=== PATIENT | female | born 1965 | race Caucasian/White ===

== ENCOUNTER 2020-01-29 10:55 | Outpatient (REF) | payer OTHER, SELFPAY ==
[2020-01-29 12:16] LABS: MANUAL DIFF FLAG NO
[2020-01-29 12:20] LABS: Basophils Absolute Auto 0.1 X10*3/uL (0.0-0.2); Basophils Percent Auto 0.6 % (0-2); Eosinophils Absolute Auto 0.2 X10*3/uL (0.0-0.4); Eosinophils Percent Auto 2.2 % (0-4); Hematocrit 37.4 % (37-47); Hemoglobin 12.4 g/dl (12.0-16.0); Imm Gran Abs Auto 0.03 X10*3/uL (0.00-0.03); Imm Gran Pct Auto 0.3 % (0.0-0.4); Mean Corpuscular HGB Conc 33.2 g/dl (31.0-35.0); Mean Corpuscular Volume 96.4 fL (80-98); Monocytes Absolute Auto 0.7 X10*3/uL (0.1-1.2); Monocytes Percent Auto 6.6 % (2-11); Neutrophils Absolute Auto 5.5 X10*3/uL (2.0-8.3); Neutrophils Percent Auto 52.3 % (45-73); Platelet Count 404 X10*3/uL (160-400); Red Blood Count 3.88 X10*6/uL (4.20-5.50); Red Cell Distribution Width 11.9 % (11.0-16.0); White Blood Count 10.6 X10*3/uL (4.8-10.8)
[2020-01-29 12:26] LABS: Glucose Urine UA NEG (NEG); Leukocyte Esterase Urine NEG (NEG); Nitrite Urine NEG (NEG); Specific Gravity - Urine 1.025 (1.005-1.025); Urine Blood NEG (NEG); Urine Ketones NEG (NEG); Urine Protein NEG (NEG-TRACE)
[2020-01-29 12:28] LABS: Appearance Urine CLEAR; Color Urine YELLOW
[2020-01-29 12:34] LABS: Mucus Urine 2+ /LPF; Squamous Epithelial Cell Urine 2+ /LPF
[2020-01-29 12:43] LABS: Creatinine Urine 101.99 mg/dL; Microalbum/Creatinine Ratio Ur 8.8 ug/mg cr
[2020-01-29 12:55] LABS: Alanine Aminotransferase 10 U/L (0-31); Albumin Level 4.1 g/dL (3.5-5.0); Alkaline Phosphatase 88 U/L (39-117); Anion Gap 14 (12-20); Aspartate Amino Transferase 13 U/L (5-31); Bilirubin Total 0.3 mg/dL (0.0-1.0); Blood Urea Nitrogen 12 mg/dL (9-16); Calcium 9.1 mg/dL (8.4-10.2); Carbon Dioxide 25 mmol/L (22-29); Chloride 103 mmol/L (96-108); Cholesterol 141 mg/dL; Estimated Glomerular Filt Rate > 60; Glucose Fasting 103 mg/dL (60-99); HDL Cholesterol 57 mg/dL; LDL Cholesterol Calculated 51 mg/dl; Potassium 4.3 mmol/l (3.3-5.1); Sodium 138 mmol/L (135-145); Total Protein 6.9 g/dL (6.5-8.0); Triglycerides 166 mg/dL
[2020-01-29 12:56] LABS: Estimated Average Glucose 143 mg/dL; Hemoglobin A1c % 6.6 %
[2020-01-29 13:14] LABS: TSH reflex Free T4 0.84 mIU/mL (0.32-4.0)
== END 2020-01-29 10:56 | disposition home or self-care (01) ==
LOC: HO.LAB 10:55
PROVIDERS: PCP Internal Medicine; Visit Provider Internal Medicine
DX: E11.9 Type 2 diabetes mellitus without complications (principal); I10 Essential (primary) hypertension; E78.00 Pure hypercholesterolemia, unspecified
CPT/HCPCS: 36415; 80053; 80061; 81001; 82043; 83036; 84443; 85025

== ENCOUNTER 2020-12-28 09:32 | Emergency (ER) | payer OTHER, SELFPAY ==
--- NOTE | ~2020-12-28 | XR_ITS ---
EXAMINATION: XR THORACIC SPINE CLINICAL INFORMATION: Pain post fall COMPARISON: Previous chest x-ray November 2018 TECHNIQUE: 3 views of the thoracic spine were obtained. FINDINGS: Bone alignment is normal. No fracture or dislocation is seen. There is multilevel degenerative disc disease and degenerative spondylosis. Paraspinal soft tissues are unremarkable. XR/XR thoracic spine 3V IMPRESSION: No fracture seen. Multilevel disc degenerative changes.
--- NOTE | ~2020-12-28 | XR_ITS ---
EXAMINATION: XR LUMBOSACRAL SPINE CLINICAL INFORMATION: Fall COMPARISON: None TECHNIQUE: Three views of the lumbosacral spine. FINDINGS: Bone alignment is normal. No fracture or dislocation is seen. There is degenerative disc disease at L5-S1. There is lower lumbar spine facet arthritis. There is a limbus variant of the superior endplate of the L3 vertebral body. XR/XR lumbar spine 2-3V IMPRESSION: No fracture seen. Degenerative disc disease at L5-S1 and lower lumbar spine facet arthritis.
--- NOTE | ~2020-12-28 | XR_ITS ---
EXAMINATION: BILATERAL KNEE X-RAY CLINICAL INFORMATION: Fall COMPARISON: None TECHNIQUE: 4 views of each knee FINDINGS: Left: Bone alignment is normal. No fracture or dislocation is seen. Joint spaces are normal. There is no joint effusion. Right: Bone alignment is normal. No fracture or dislocation is seen. Joint spaces are normal. There is no joint effusion. There is evidence of atherosclerotic disease. XR/XR knee RT 4V IMPRESSION: Atherosclerotic disease on the right otherwise unremarkable exam.
--- NOTE | ~2020-12-28 | XR_ITS ---
EXAMINATION: BILATERAL KNEE X-RAY CLINICAL INFORMATION: Fall COMPARISON: None TECHNIQUE: 4 views of each knee FINDINGS: Left: Bone alignment is normal. No fracture or dislocation is seen. Joint spaces are normal. There is no joint effusion. Right: Bone alignment is normal. No fracture or dislocation is seen. Joint spaces are normal. There is no joint effusion. There is evidence of atherosclerotic disease. XR/XR knee LT 4V IMPRESSION: Atherosclerotic disease on the right otherwise unremarkable exam.
[2020-12-28 09:34] VITALS: BP 133/69; PULSE 89; RESP 16; TEMP 36.4; O2SAT 97
[2020-12-28 09:45] VITALS: BP 133/69; PULSE 89; RESP 17; TEMP 36.4; O2SAT 97; BMI 32.9
--- NOTE | 2020-12-28 10:46 | ED.FALL ---
HPI - Fall General Chief Complaint: Fall Stated Complaint: fell inj knee and shins Time Seen by Provider: 12/28/20 09:45 Source: patient Mode of arrival: ambulatory Limitations: no limitations History of Present Illness HPI Narrative: 55-year-old female presenting to the ED with complaints of upper and lower back pain along with bilateral knee pain and left leg pain right below the knee since yesterday after she had a mechanical fall where she slipped on some type of yellow spilled liquid while she was grocery shopping at [employer] in the [facility]. She reports that she believes her left leg went under the grocery cart and her right leg went behind her almost like a split and then she fell on her left side she believes although she does not believe she hit her head she is unsure but did not lose consciousness. She is not on any blood thinners. She denies any symptoms prior to the fall. She denies any other symptoms other than pain after the fall. She denies any headaches, neck pain/stiffness, paresthesias, chest pain or shortness of breath, abdominal pain or injury, upper extremity injury or any other symptoms complaints or concerns at this time MD complaint: fall Onset (ago): day(s) (Yesterday) Fall from: standing Fall witnessed: yes, by bystander Place fall occurred: other ([employer] store near the [facility]) Loss of consciousness: none Prolonged down time: no Symptoms prior to fall: none Context: tripped/slipped (On some type of a yellow spilled liquid on the floor) Location of injury: back Location of injury - extremities: right: knee Severity: moderate Quality: aching Associated symptoms (after fall): denies Related Data Home Medications Medication Instructions Recorded Confirmed mometasone 0.1 % topical cream 1 appl TOPICAL DAILY 10/23/20 Previous Rx's Medication Instructions Recorded amlodipine 5 mg tablet 5 mg PO DAILY #90 tab 08/29/20 atorvastatin 40 mg tablet 40 mg PO DAILY #90 tab 08/29/20 metformin 1,000 mg tablet 1,000 mg PO BID #180 tab 10/28/20 aspirin 81 mg tablet,delayed 81 mg PO DAILY #90 tab 12/24/20 release lisinopril 20 mg tablet 20 mg PO DAILY #30 tab 12/24/20 acetaminophen 500 mg tablet 1,000 mg PO QID PRN #14 tab 12/28/20 (Tylenol Extra Strength) cyclobenzaprine 10 mg tablet 10 mg PO Q8H PRN #14 tab 12/28/20 lidocaine 5 % topical patch 1 patch TOPICAL DAILY #15 ea 12/28/20 (Lidoderm) Allergies Allergy/AdvReac Type Severity Reaction Status Date / Time No Known Allergies Allergy Verified 01/31/20 10:59 Review of Systems Review of Systems: Constitutional : No Weight loss, No Fever, No Chills, No Night Sweats, No Fatigue, No Malaise ENT/Mouth : No Hearing loss, No Ear Pain, No Nasal Congestion, No Sinus Pain, No Hoarseness, No sore throat, No Rhinorrhea, No Swallowing Difficulty Eyes: No Eye Pain, No Swelling, No Redness, No Foreign Body, No Discharge, No Vision Changes Cardiovascular : No Chest Pain, No SOB, No Dyspnea on Exertion, No Orthopnea, No Edema, No Palpitations Respiratory : No Cough, No Sputum, No Wheezing, No Smoke Exposure, No Dyspnea Gastrointestinal : No Nausea, No Vomiting, No Diarrhea, No Constipation, No abdominal Pain, No Hematochezia, No Melena Genitourinary : no irregular bleeding, No Dysuria, No Urinary Frequency, No Hematuria, No Urinary Incontinence, No Urgency, No Flank Pain, No Urinary Flow Changes, No Hesitancy Musculoskeletal : + upper and lower back pain/injury, positive bilateral knee joint pain, No Myalgias, No Joint Swelling Skin : No Skin Lesions, No rash Neuro : No Weakness, No Numbness, No Paresthesias, No Loss of Consciousness, No Dizziness, No Headache Psych : No Anxiety/Panic, No Depression, No SI/HI/AH/VH, No Social Issues, Heme/Lymph: No Bruising, No Bleeding,No Lymphadenopathy Endocrine : No Polyuria, No Polydipsia, No Temperature Intolerance Yes all other systems are reviewed and are negative [facility] Past Medical History Attestation statement: The following information was validated with the patient. Surgical History No pertinent past surgical history Family History Family History Father Hypertension Mother Hypertension Asthma Brother No problems noted. Sister No problems noted. Son No problems noted. Social History Social History Advance Directives: No Advance Directives Information Provided: No Patient : No Physical Exam Vital Signs: Vital Signs: Last Vital Signs Temp 97.5 F 12/28/20 09:45 Pulse 89 12/28/20 09:45 Resp 17 12/28/20 09:45 BP 133/69 12/28/20 09:45 Pulse Ox 97 12/28/20 09:45 Body Mass Index 32.9 vital signs have been reviewed as normal and appeared to be correct. Blood pressure normal. Heart rate normal. Respiration rate normal. Temperature normal. Oxygen saturation normal. Appearance: Alert. Oriented X3. No acute distress. Head: Normal external exam. Normocephalic. Atraumatic. No Zambrano signs noted. No raccoon eyes noted Eyes: PERRLA. EOMI. Conjunctiva and sclera normal. Eyelids normal. ENT: EAC normal. TM's Normal. Pharynx normal. Uvula midline. Moist mucous membranes. No trismus noted. No drooling noted. No muffled voice noted. Neck: Normal inspection. Neck supple. FROM. No adenopathy. Thyroid Normal. No meningeal signs. No neck mass noted. Nontender. No signs of trauma. CVS: Normal heart rate and rhythm. Heart sound normal. No murmurs noted. Pulses normal throughout. Respiratory: No respiratory distress. Painless inspiration. Breath sounds normal. No wheezes/rales/rhonchi noted. Chest nontender. No accessory muscle usage noted or decreased air movement noted. Abdomen: Soft and nontender. Bowel sounds normal in all 4 quadrants. No distention noted. No organomegaly noted. No visible injury noted. Back: Full range of motion noted. No obvious deformities, or edema. Mild para-spinal muscular tenderness from thoracic to lumbar region to coccyx. Full ROM in back and lower extremities. 5/5 strength hip extension/flexion, abduction, adduction. Mild Lumbar pain with hip flexion against resistance. Straight leg raise test negative on right; Straight leg raise test negative on left; Reflexes normal ankle and knee bilaterally; EHL motor strength normal bilaterally. No rashes/lesion/induration/fluctuance or signs infection noted. No ecchymosis/abrasion/lacerations or obvious signs of trauma on the entire back. Skin: Skin warm and dry. Normal skin color. Normal skin turgor. No rashes/lesions/lacerations noted. Extremities: Patient with tenderness up patient to bilateral knees with ecchymosis noted to the right knee and mild ecchymosis noted to the left upper mak patient has full range of motion of bilateral knees no obvious ligamentous or tendon injury or deformities noted. Otherwise all other Extremities exhibit normal range of motion and nontender. Neuro: Oriented X 3. No motor deficit. No sensory deficit. Reflexes normal. Patient has a normal steady gait. Course Course Course Narrative: 55-year-old female presenting to the ED with complaints of upper and lower back pain along with bilateral knee pain and left leg pain right below the knee since yesterday after she had a mechanical fall where she slipped on some type of yellow spilled liquid while she was grocery shopping at [employer] in the [place]. She reports that she believes her left leg went under the grocery cart and her right leg went behind her almost like a split and then she fell on her left side she believes although she does not believe she hit her head she is unsure but did not lose consciousness. She is not on any blood thinners. X-rays of bilateral knees/lumbar spine/thoracic spine obtained and negative for any acute processes only revealed chronic changes therefore at this time will DC home with symptomatic treatment instructions to follow-up with her primary care provider and her front end architect as she discussed with me and to return if any new or worsening symptoms. Patient understands agrees with this plan. MDM - Fall Medical Records Attestation: I reviewed the patient's medical records. Imaging Data X-ray of lumbar/thoracic/bilaterally knees: Attestation: I personally reviewed and interpreted this imaging study as follows: Radiologist's impression: FINDINGS: Bone alignment is normal. No fracture or dislocation is seen. There is multilevel degenerative disc disease and degenerative spondylosis. Paraspinal soft tissues are unremarkable. XR/XR thoracic spine 3V IMPRESSION: No fracture seen. Multilevel disc degenerative changes. ? FINDINGS: Bone alignment is normal. No fracture or dislocation is seen. There is degenerative disc disease at L5-S1. There is lower lumbar spine facet arthritis. There is a limbus variant of the superior endplate of the L3 vertebral body. XR/XR lumbar spine 2-3V IMPRESSION: No fracture seen. Degenerative disc disease at L5-S1 and lower lumbar spine facet arthritis. FINDINGS: Left: Bone alignment is normal. No fracture or dislocation is seen. Joint spaces are normal. There is no joint effusion. Right: Bone alignment is normal. No fracture or dislocation is seen. Joint spaces are normal. There is no joint effusion. There is evidence of atherosclerotic disease. XR/XR knee LT 4V IMPRESSION: Atherosclerotic disease on the right otherwise unremarkable exam. Discharge Plan Discharge Clinical Impression: Fall, Knee sprain, bilateral, Strain of thoracic region, Lumbar strain Patient Disposition: Home, Self-Care Instructions: Knee Sprain (ED), Muscle Strain (ED), Low Back Strain (ED), Fall Prevention (ED) Prescriptions: New cyclobenzaprine 10 mg tablet 10 mg PO Q8H PRN (Reason: Muscle spasm) Qty: 14 RF: 0 acetaminophen [Tylenol Extra Strength] 500 mg tablet 1,000 mg PO QID PRN (Reason: fever or pain) Qty: 14 RF: 0 lidocaine [Lidoderm] 5 % adhesive patch,medicated 1 patch topical DAILY Qty: 15 RF: 0 No Action amlodipine 5 mg tablet 5 mg PO DAILY Qty: 90 RF: 1 atorvastatin 40 mg tablet 40 mg PO DAILY Qty: 90 RF: 1 mometasone 0.1 % cream 1 appl topical DAILY RF: 0 metformin 1,000 mg tablet 1,000 mg PO BID Qty: 180 RF: 1 lisinopril 20 mg tablet 20 mg PO DAILY Qty: 30 RF: 0 aspirin 81 mg tablet,delayed release (DR/EC) 81 mg PO DAILY Qty: 90 RF: 3 Referrals: Todd Candelaria MD [Primary Care Provider] - 2 days Stand Alone Forms: Work/School Release Print Language: Azeri
== END 2020-12-28 11:09 | disposition home or self-care (01) ==
PROVIDERS: Emergency Provider Emergency Medicine; PCP Internal Medicine
DX: S39.012A Strain of muscle, fascia and tendon of lower back, initial encounter (principal); S29.012A Strain of muscle and tendon of back wall of thorax, initial encounter; S83.92XA Sprain of unspecified site of left knee, initial encounter; M25.561 Pain in right knee; W01.0XXA Fall on same level from slipping, tripping and stumbling without subsequent striking against object, initial encounter; Y93.9 Activity, unspecified; Y92.512 Supermarket, store or market as the place of occurrence of the external cause; Y99.9 Unspecified external cause status
CPT/HCPCS: 72072; 72100; 73564; 99283

== ENCOUNTER 2021-01-21 08:30 | Outpatient (REF) | payer OTHER, SELFPAY ==
--- NOTE | ~2021-01-21 | MM_ITS ---
EXAMINATION: BONE DENSITOMETRY CLINICAL INDICATION: Encounter for screening for osteoporosis. COMPARISON: This is the patient's baseline examination. TECHNIQUE: Using a [employer] DXA System (software version: 13.1) manufactured by [employer], dual-energy x-ray absorptiometry was performed of the lumbar spine and left hip. The images are of good technical quality. Summary results are attached. FINDINGS: AP SPINE L1-L4: BMD 1.322 g/cm2, Z-score 1.4, T-score 1.2, normal. LEFT FEMUR, NECK: BMD 0.843 g/cm2, Z-score -0.8, T-score -1.4, osteopenia. LEFT FEMUR, TOTAL: BMD 1.038 g/cm2, Z-score 0.5, T-score 0.2, normal. IDENTIFIED RISK FACTORS: Menopause. HISTORY OF FRACTURE: None listed. MEDICATIONS: None listed. MM/XR DEXA axial skeleton IMPRESSION: 1. DIAGNOSIS: Osteopenia based on the lowest T-score value of -1.4 in the femoral neck applying World Health Organization criteria. 2. 10-YEAR FRACTURE RISK PREDICTION, FRAX: Major osteoporotic fracture (clinical spine, forearm, hip or shoulder) 3.1%. Hip fracture 0.2%. 3. Treatment Recommendations: NOF guidelines recommend consideration for treatment in postmenopausal women and men age 50 and older presenting with the following: -A hip or vertebral (clinical or morphometric) fracture. -T-score less than or equal to -2.5 at the femoral neck or spine after appropriate evaluation to exclude secondary causes. -Low bone mass at the hip or spine and a 10-year fracture probability by FRAX of greater than or equal to 3% for hip fracture or greater than or equal to 20% for major osteoporotic fracture based on the [place] adapted WHO algorithm. 4. Other Recommendations: All treatment decisions require clinical judgment and consideration of individual patient factors, including patient preferences, comorbidities, previous drug use, risk factors not captured in the FRAX model (e.g. frailty, falls, vitamin D deficiency, increased bone turnover, interval significant decline in bone density) and possible under or overestimation of fracture risk by FRAX. Additional medical evaluation for secondary cause of low bone mineral density may be appropriate. FUTURE SCAN RECOMMENDATION: People with diagnosed cases of osteoporosis or at high risk for fracture should have regular bone mineral density tests. For patients eligible for Medicare, routine testing is allowed once every 2 years. The testing frequency can be increased to one year for patients who have rapidly progressing disease, those who are receiving or discontinuing medical therapy to restore bone mass, or have additional risk factors.
[2021-01-21 08:44] LABS: MANUAL DIFF FLAG NO
[2021-01-21 09:14] LABS: Basophils Absolute Auto 0.1 X10*3/uL (0.0-0.2); Basophils Percent Auto 0.6 % (0-2); Eosinophils Absolute Auto 0.1 X10*3/uL (0.0-0.4); Eosinophils Percent Auto 1.5 % (0-4); Hematocrit 41.8 % (37.0-47.0); Hemoglobin 14.3 g/dl (12.0-16.0); Imm Gran Abs Auto 0.04 X10*3/uL (0.00-0.03); Imm Gran Pct Auto 0.4 % (0.0-0.4); Lymphocytes Absolute Auto 2.7 X10*3/uL (1.2-4.9); Lymphocytes Percent Auto 27.8 % (20-40); Mean Corpuscular HGB Conc 34.2 g/dl (31.0-35.0); Mean Corpuscular Hemoglobin 32.1 pg (27.0-33.0); Mean Corpuscular Volume 93.9 fL (80.0-98.0); Mean Platelet Volume 9.1 fL (9.4-12.3); Monocytes Absolute Auto 0.7 X10*3/uL (0.1-1.2); Monocytes Percent Auto 7.6 % (2-11); Neutrophils Percent Auto 62.1 % (45-73); Platelet Count 338 X10*3/uL (160-400); Red Blood Count 4.45 X10*6/uL (4.20-5.50); Red Cell Distribution Width 11.6 % (11.0-16.0); White Blood Count 9.6 X10*3/uL (4.8-10.8)
[2021-01-21 09:30] LABS: Estimated Average Glucose 240 mg/dL
[2021-01-21 09:36] LABS: Alanine Aminotransferase 18 U/L (0-31); Albumin Level 4.1 g/dL (3.5-5.0); Alkaline Phosphatase 117 U/L (39-117); Anion Gap 15 (12-20); Aspartate Amino Transferase 15 U/L (5-31); Bilirubin Total 0.3 mg/dL (0.0-1.0); Blood Urea Nitrogen 14 mg/dL (9-16); Calcium 9.7 mg/dL (8.4-10.2); Carbon Dioxide 25 mmol/L (22-29); Chloride 102 mmol/L (96-108); Cholesterol 240 mg/dL; Estimated Glomerular Filt Rate > 60; Glucose Fasting 273 mg/dL (60-99); HDL Cholesterol 54 mg/dL; LDL Cholesterol Calculated 136 mg/dl; Potassium 4.6 mmol/L (3.3-5.1); Sodium 137 mmol/L (135-145); Total Protein 7.2 g/dL (6.5-8.0); Triglycerides 250 mg/dL
== END 2021-01-21 08:31 | disposition home or self-care (01) ==
LOC: HO.MAMMO 08:30
PROVIDERS: PCP Internal Medicine; Visit Provider Nurse Practitioner Acute Care
DX: Z13.820 Encounter for screening for osteoporosis (principal); M85.80 Other specified disorders of bone density and structure, unspecified site; E78.00 Pure hypercholesterolemia, unspecified; E11.9 Type 2 diabetes mellitus without complications; Z78.0 Asymptomatic menopausal state
CPT/HCPCS: 36415; 77080; 80053; 80061; 83036; 85025

== ENCOUNTER 2021-01-26 13:56 | Outpatient (AMB) | payer OTHER, SELFPAY ==
--- NOTE | 2021-01-26 14:08 | MHC.PC.OV ---
Vital Signs 01/26/21 14:09 Height 5 ft 2 in Weight 181 lb BMI 33.0 BP 130/82 Pulse 77 Pulse Source Pulse Oximeter Temp 96.9 F Pulse Oximetry (%) 98 Oxygen Delivery Method Room Air Intake Visit Reasons: physical, DM needs A1c today Reel Stripper Required: No Accompanied by: Self / Same As Patient Allergies No Known Allergies Allergy (Verified 01/19/23 15:50) Medication List - Last Reconciled 01/26/21 by Todd Candelaria MD acetaminophen (Tylenol Extra Strength) 1,000 mg (2 x 500 mg) PO QID PRN amlodipine 5 mg PO DAILY aspirin 81 mg PO DAILY atorvastatin 40 mg PO DAILY cyclobenzaprine 10 mg PO Q8H PRN lidocaine 5% (Lidoderm) 1 patch topical DAILY lisinopril 20 mg PO DAILY metformin 1,000 mg PO BID Tobacco use date assessed: 01/26/21 HPI physical, DM needs A1c today HPI Details Patient comes in today for her annual physical examination States that she feels okay She denies any headaches or dizziness Denies any chest pains, no SOB No nausea/vomiting, no abdominal pain No change in bowel habits noted Denies any acute urinary symptoms Had her follow up labs done a few days ago - to discuss her results [facility] Medical History (Updated 01/24/23 @ 05:13 by Todd Candelaria MD) Overweight (BMI 25.0-29.9) Asthma Bunion, right foot Fracture of phalanx of toe of left foot Muscle spasm of back Lumbar radiculitis Myalgia Arthralgia Left elbow pain Headache Neck pain Low back pain Right knee pain Screening for osteoporosis Vitamin D deficiency Cervical spondylosis 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 Sister No problems noted. Son No problems noted. Social History Housing: Apartment Alcohol intake: current Alcohol intake frequency: holidays/special occasions only Patient Tobacco Use Status: Never used Tobacco Tobacco use type: Cigarette e-Cigarette/Vaping Use: Never Used Second Hand Smoke Exposure: No Substance Use Type: Marijuana service: No Current occupational status: employed Cognitive needs: No Hearing needs: No Vision needs: No Questionnaire PHQ-9 Over the last 2 weeks, how often have you been bothered by any of the following problems? 1. Little interest or pleasure in doing things: not at all 2. Feeling down, depressed, or hopeless: not at all 3. Trouble falling or staying asleep, or sleeping too much: not at all 4. Feeling tired or having little energy: not at all 5. Poor appetite or overeating: not at all 6. Feeling bad about yourself - or that you are a failure or have let yourself or your family down: not at all 7. Trouble concentrating on things, such as reading the newspaper or watching television: not at all 8. Moving or speaking so slowly that other people could have noticed. Or the opposite - being so fidgety or restless that you have been moving around a lot more than usual: not at all 9. Thoughts that you would be better off or of hurting yourself in some way: not at all Total score: 0 Depression Screening Interpretation: Negative [id number] - PHQ-9 Billing: Yes Source: Developed by Drs. August Escobar, Sherrie Diaz, Michael Son and colleagues, with an educational silvia from [employer]. Thrive Questionnaire Date Thrive assessed: 01/26/21 I am a: Patient What is your living situation today?: I have a steady place to live Within the past 12 months, did the food you bought not last and you didn't have the money to get more?: Never true Within the past 12 months, did you worry whether your food would run out before you got money to buy more?: Never true Do you have trouble paying for medicines?: No Do you have trouble getting transportation to medical appointments?: No Do you have trouble paying your heating and electricity bill?: No Do you have trouble taking care of your child, family member or friend?: No Do you have trouble with day-to-day activities such as bathing, preparing meals, shopping, managing finances, etc.?: No Are you currently unemployed and looking for a job?: No Are you interested in more education?: No Currently or been in a relationship where the following occur: no concerns reported AUDIT C Alcohol Use Questionnaire (AUDIT-C) 1. How often do you have a drink containing alcohol?: Never 3. How often do you have six or more drinks on one occasion?: Never Total Score: 0 Score Reviewed/Action Taken: Yes JOI-7 AMB Questionnaire JOI-7 Date JOI - 7 assessed: 01/26/21 Feeling nervous, anxious, or on edge: 0 = Not at all Not being able to stop or control worryin = Not at all Worrying too much about different things: 0 = Not at all Trouble relaxin = Not at all Being so restless that it is hard to sit still: 0 = Not at all Becoming easily annoyed or irritable: 0 = Not at all Feeling afraid as if something awful might happen: 0 = Not at all Total JOI-7 score (0-4 normal; 5-9 mild; 10-14 moderate; 15-21 severe): 0 Source: Developed by Drs. August Escobar, Sherrie Diaz, Michael Son and colleagues, with an educational silvia from [employer]. Review of Systems Const Denies chills, Denies fatigue, Denies fever(s), Denies headache(s) and Denies malaise Eyes Denies blurry vision, Denies change in vision, Denies irritation and Denies itchy eyes ENT Denies dysphagia, Denies dizziness, Denies otalgia, Denies headache(s), Denies nasal congestion, Reports neck pain, Denies odynophagia, Denies sinus pain and Denies sore throat Card Denies chest pain, Denies rapid heart rate, Denies irregular heart rhythm, Denies palpitations and Denies dyspnea Resp Denies chest congestion, Denies cough, Denies dyspnea and Denies wheezing GI Denies abdominal pain, Denies bloating, Denies constipation, Denies dysphagia, Denies heartburn, Denies diarrhea, Denies nausea, Denies odynophagia and Denies vomiting Denies hematuria, Denies urinary frequency, Denies dysuria, Denies urinary incontinence and Denies urinary urgency Musc Reports back pain (chronic), Reports arthralgias (over both knees), Denies joint swelling and Reports neck pain Skin/Breast Denies breast pain, Denies breast mass, Denies change in pigmentation, Denies lesions, Denies rash and Denies unusual bruising Neuro Denies dizziness, Denies headache(s) and Denies paresthesias Psych Denies anxiety and Denies depression Endo Denies fatigue and Denies palpitations Ed/Lymph Denies easy bruising Aller/Immun Denies itchy eyes and Denies wheezing Physical exam (Primary Care) Vital Signs: Last Vital Signs Temp 96.9 F 01/26/21 14:09 Pulse 77 01/26/21 14:09 BP 130/82 01/26/21 14:09 Pulse Ox 98 01/26/21 14:09 Oxygen Delivery Method Room Air 01/26/21 14:09 BMI result Body Mass Index 33.0 Tobacco/Smoking Status: Tobacco use Status Tobacco use date assessed 01/26/21 01/26/21 14:14 Patient Tobacco Use Status Never used Tobacco 01/26/21 14:14 Tobacco use type Cigarette 01/26/21 14:14 e-Cigarette/Vaping Use Never Used 01/26/21 14:14 PHQ-9: PHQ-9 Score PHQ-9: Total score 0 01/26/21 14:27 Depression Screening Interpretation: Negative Thrive Assessment: Date of Thrive Assessment Date Thrive assessed 01/26/21 01/26/21 14:14 Currently or been in a relationship where the following occur: no concerns reported Const General: no acute distress, alert and awake Orientation/consciousness: patient oriented x3 HENMT Head: Yes normocephalic and Yes atraumatic Ears: external ears normal, TM's normal bilaterally and EAC's normal General nose exam: No nasal discharge present Face and sinus: Yes normal facial exam and Yes sinuses nontender Teeth and gingiva: dentition normal Throat: Yes posterior oropharynx normal and Yes tonsils normal (no TP congestion) Eyes Eyelids: Yes eyelids normal Conjunctivae: conjunctivae normal Pupils: Equal, round and reactive pupils present EOM: EOMs intact bilaterally Neck Neck: Yes no lymphadenopathy and Yes supple Thyroid: Thyroid normal Resp Auscultation: clear to auscultation bilaterally, no rales and no wheezes Cardio Rate: regular rate Rhythm: regular rhythm Heart sounds: no murmurs GI Palpation (GI): Soft to palpation, nontender and No hepatosplenomegaly present Auscultation: normal bowel sounds General: Yes no CVA tenderness Back/Spine/Pelvis Back: no CVA tenderness Cervical Spine: Cervical spine tenderness Thoracic/Lumbar Spine: thoracic spinal tenderness and lumbar spinal tenderness Skin Lesions: no lesions Rashes: no rashes Neuro General: patient oriented x3, moves all extremities, no focal motor deficits and CN's II-XI intact bilaterally Cranial nerves: Yes Equal, round and reactive pupils present Cognition (Neuro): normal cognition Gait exam (Neuro): Normal gait present Extrem General: Yes no clubbing, cyanosis or edema Right lower extremity: knee Details: tenderness; no swelling Left lower extremity: knee Details: tenderness; no swelling Office Procedures Flu Questionnaire Does the patient have a severe egg allergy?: No Does the patient have severe life threatening allergies?: No Does the patient have a fever or illness today?: No Has the patient ever had Guillain-[place] Syndrome?: No Has the patient ever had any past reaction to a flu shot?: No Immunizations flu vacc [id number] 6mos up(PF) 60 mcg(15 mcgx4)/0.5 mL IM syringe Performing Provider: Todd Candelaria MD [facility] Documented (not given) by: LUIS ENRIQUE Price on 01/26/21 14:14 Reason Not Given: Patient Refused Results Reviewed Results Reviewed: Laboratory Tests 01/29/20 01/21/21 01/21/21 Unknown 08:42 08:42 WBC 9.6 Hgb 14.3 Hct 41.8 Plt Count 338 Sodium 137 Potassium 4.6 Creatinine 0.93 Estimated GFR > 60 Fasting Glucose 273 H Hemoglobin A1c % Calcium 9.7 D AST 15 ALT 18 Triglycerides 250 Cholesterol 240 D LDL Cholesterol, Calc 136 HDL Cholesterol 54 Microalb/Creat Ratio 8.8 01/21/21 08:42 WBC Hgb Hct Plt Count Sodium Potassium Creatinine Estimated GFR Fasting Glucose Hemoglobin A1c % 10.0 Calcium AST ALT Triglycerides Cholesterol LDL Cholesterol, Calc HDL Cholesterol Microalb/Creat Ratio Assessment and Plan Assessment & Plan (1) Annual physical exam: Code(s): Z00.00 - Encounter for general adult medical examination without abnormal findings Plan: Results of her labs done a few days ago reviewed and discussed with patient (2) Diabetes mellitus: Code(s): E11.9 - Type 2 diabetes mellitus without complications Qualifiers: Diabetes mellitus type: type 2 Diabetes mellitus 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 insulin use: without senior living use Diabetes mellitus complication status: with hyperglycemia Qualified Code(s): E11.65 - Type 2 diabetes mellitus with hyperglycemia Plan: HgbA1c was at 10.0% on her labs done a few days ago - goal is <7.0% Reinforced diabetic diet Continue Metformin 1000 mg BID for now Discussed consideration of starting her on additional medications if she cannot get her diabetes controlled with Metformin alone (3) Pure hypercholesterolemia: Code(s): E78.00 - Pure hypercholesterolemia, unspecified Plan: Patient is advised that her cholesterol levels were still significantly elevated and not at goal on her recent labs Reinforced low cholesterol diet; she admitted to running out of her Rx at times and to poor compliance with diet and will try to improve on these Continue Atorvastatin 40 mg QD for now Will recheck her labs in 3 months for follow up (4) Benign essential hypertension: Code(s): I10 - Essential (primary) hypertension Plan: Reinforced low sodium diet - goal is systolic BP of 120 mm or less Continue Lisinopril 20 mg QD and Amlodipine 5 mg QD (5) 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: Code(s): M47.815 - Spondylosis without myelopathy or radiculopathy, thoracolumbar region Plan: Reinforced activity and weight-lifting restrictions Follow up with pain management as scheduled (6) Neck pain: Code(s): M54.2 - Cervicalgia Plan: Continue Tizanidine 2 mg Q 8 hours PRN Will consider sending patient for cervical spine imaging studies for further evaluation if her neck pain persists or gets worse (7) Obesity (BMI 30-39.9): Code(s): E66.9 - Obesity, unspecified Plan: Reinforced diet/exercise as tolerated/lose weight Plan Patient declined flu vaccine today Follow up in 3 months Orders: Orders Comprehensive [place]. Panel Fast 3 Months E78.00 - Pure hypercholesterolemia, unspecified Lipid Panel 3 Months E78.00 - Pure hypercholesterolemia, unspecified Microalbumin, Random (w Creat) 3 Months E11.9 - Type 2 diabetes mellitus without complications Influenza [id number] Immunization 01/26/21 Z23 - Encounter for immunization Complete Blood Count Auto Diff 3 Months I10 - Essential (primary) hypertension TSH reflex Free T4 3 Months E78.00 - Pure hypercholesterolemia, unspecified Vitamin D 25-OH Total 3 Months E55.9 - Vitamin D deficiency, unspecified UA CC w/rflx Micro + Cult 3 Months I10 - Essential (primary) hypertension Hemoglobin A1c 3 Months E11.9 - Type 2 diabetes mellitus without complications Coding Level of Care Code Est Pt Prev Care 40-64y([id number]) Diagnoses Annual physical exam Z00.00 Type 2 diabetes mellitus with hyperglycemia, without long-term current use of insulin E11.65 Diabetes mellitus type: type 2 Diabetes mellitus senior living insulin use: without senior living use Diabetes mellitus complication status: with hyperglycemia Pure hypercholesterolemia E78.00 Benign essential hypertension I10 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
[2021-01-26 14:09] VITALS: BP 130/82; PULSE 77; TEMP 36.1; O2SAT 98; BMI 33.0
== END 2021-01-26 14:46 | disposition home or self-care (01) ==
PROVIDERS: PCP Internal Medicine; Visit Provider Internal Medicine
DX: Z00.00 Encounter for general adult medical examination without abnormal findings (principal); E11.65 Type 2 diabetes mellitus with hyperglycemia; E66.9 Obesity, unspecified; Z68.33 Body mass index [BMI] 33.0-33.9, adult; E78.00 Pure hypercholesterolemia, unspecified; I10 Essential (primary) hypertension; M47.815 Spondylosis without myelopathy or radiculopathy, thoracolumbar region; M54.2 Cervicalgia
CPT/HCPCS: 99396

== ENCOUNTER 2021-03-24 08:00 | Outpatient (RCR) | payer OTHER, SELFPAY | END 2021-04-30 09:09 | disposition home or self-care (01) | LOC: HO.PT 08:00 | PROVIDERS: PCP Internal Medicine; Visit Provider Nurse Practitioner Acute Care | DX: M25.561 Pain in right knee (principal) | CPT/HCPCS: 97110; 97140; 97161 ==

== ENCOUNTER 2021-04-16 07:44 | Outpatient (REF) | payer OTHER, SELFPAY ==
--- NOTE | ~2021-04-16 | CT_ITS ---
EXAMINATION: CT HEAD WITHOUT CONTRAST CLINICAL INFORMATION: Headache. COMPARISON: None TECHNIQUE: Contiguous axial imaging was performed from the skull base to vertex without intravenous administration of contrast. This CT examination was performed using dose optimization techniques as appropriate, variously including the following: *Automated exposure control *Adjustment of mA and/or kV according to patient size (this includes techniques or standardized protocols for targeted exams where dose is matched to indication/reason for exam; i.e. extremities or head) *Use of iterative reconstruction technique DLP: 640 mGy-cm FINDINGS: There is no evidence of acute intracranial hemorrhage or territorial infarction. No abnormal mass effect or midline shift is seen. Shafer to white matter differentiation is well preserved. No extra-axial fluid collections are identified. The ventricles are normal in size. There is no abnormal attenuation within the brain parenchyma. The osseous structures and soft tissues are normal. The mastoid air cells and visualized portions of the paranasal sinuses are well aerated. CT/CT head/brain wo con IMPRESSION: No acute intracranial process seen.
[2021-04-16 08:28] LABS: MANUAL DIFF FLAG NO
[2021-04-16 09:06] LABS: Basophils Absolute Auto 0.1 X10*3/uL (0.0-0.2); Basophils Percent Auto 0.6 % (0-2); Eosinophils Absolute Auto 0.2 X10*3/uL (0.0-0.4); Eosinophils Percent Auto 1.6 % (0-4); Hematocrit 42.4 % (37.0-47.0); Hemoglobin 14.3 g/dl (12.0-16.0); Imm Gran Abs Auto 0.03 X10*3/uL (0.00-0.03); Imm Gran Pct Auto 0.3 % (0.0-0.4); Lymphocytes Percent Auto 27.6 % (20-40); Mean Corpuscular HGB Conc 33.7 g/dl (31.0-35.0); Mean Corpuscular Hemoglobin 32.3 pg (27.0-33.0); Mean Corpuscular Volume 95.7 fL (80.0-98.0); Mean Platelet Volume 9.1 fL (9.4-12.3); Monocytes Absolute Auto 0.8 X10*3/uL (0.1-1.2); Monocytes Percent Auto 6.9 % (2-11); Neutrophils Absolute Auto 6.8 x10*3/uL (2.0-8.3); Platelet Count 318 X10*3/uL (160-400); Red Blood Count 4.43 X10*6/uL (4.20-5.50); White Blood Count 10.9 X10*3/uL (4.8-10.8)
[2021-04-16 09:06] LABS: Appearance Urine CLEAR; Color Urine YELLOW; Glucose Urine UA >=1000 MG/DL (NEG); Leukocyte Esterase Urine NEG (NEG); Nitrite Urine NEG (NEG); PH 5.5 (5.0-8.0); Specific Gravity - Urine >= 1.030 (1.005-1.025); UACC Culture Trigger NO; Urine Blood TRACE (NEG); Urine Ketones NEG (NEG); Urine Protein NEG (NEG-TRACE)
[2021-04-16 09:16] LABS: Estimated Average Glucose 252 mg/dL; Hemoglobin A1c % 10.4 %
[2021-04-16 09:39] LABS: Alanine Aminotransferase 18 U/L (0-31); Albumin Level 4.5 g/dL (3.5-5.0); Alkaline Phosphatase 129 U/L (39-117); Anion Gap 16 (12-20); Aspartate Amino Transferase 17 U/L (5-31); Bilirubin Total 0.6 mg/dL (0.0-1.0); Blood Urea Nitrogen 13 mg/dL (9-16); Calcium 10.1 mg/dL (8.4-10.2); Carbon Dioxide 24 mmol/L (22-29); Chloride 102 mmol/L (96-108); Cholesterol 148 mg/dL; Estimated Glomerular Filt Rate > 60; Glucose Fasting 231 mg/dL (60-99); HDL Cholesterol 61 mg/dL; LDL Cholesterol Calculated 42 mg/dl; Potassium 4.3 mmol/L (3.3-5.1); Sodium 138 mmol/L (135-145); Total Protein 7.7 g/dL (6.5-8.0); Triglycerides 225 mg/dL
[2021-04-16 09:39] LABS: Bacteria Urine 2+ /LPF; RBC Urine 0-2 /HPF (0); Squamous Epithelial Cell Urine 2+ /LPF
[2021-04-16 09:54] LABS: TSH reflex Free T4 1.19 uIU/mL (0.32-4.0); Vitamin D 25-OH Total 24.2 ng/mL (>30)
[2021-04-16 10:25] LABS: Creatinine Urine 79.37 mg/dL; Microalbum/Creatinine Ratio Ur 13.8 ug/mg cr
== END 2021-04-16 07:45 | disposition home or self-care (01) ==
LOC: HO.CT 07:44
PROVIDERS: Absent Provider Internal Medicine; PCP Internal Medicine; Visit Provider Nurse Practitioner Family
DX: R51.9 Headache, unspecified (principal); I10 Essential (primary) hypertension; E78.00 Pure hypercholesterolemia, unspecified; E11.9 Type 2 diabetes mellitus without complications; E55.9 Vitamin D deficiency, unspecified
CPT/HCPCS: 36415; 70450; 80053; 80061; 81001; 82043; 82306; 83036; 84443; 85025

== ENCOUNTER → 2021-05-01 10:58 | Outpatient (BNVA) | payer OTHER, SELFPAY | PROVIDERS: PCP Internal Medicine; Visit Provider Nurse Practitioner Family | DX: M47.815 Spondylosis without myelopathy or radiculopathy, thoracolumbar region (principal); M47.816 Spondylosis without myelopathy or radiculopathy, lumbar region; M54.16 Radiculopathy, lumbar region; M62.830 Muscle spasm of back | CPT/HCPCS: 99202 ==

== ENCOUNTER 2021-05-19 07:52 | Outpatient (REF) | payer OTHER, SELFPAY ==
--- NOTE | ~2021-05-19 | XR_ITS ---
EXAMINATION: XR CERVICAL SPINE CLINICAL INFORMATION: Neck pain. COMPARISON: None TECHNIQUE: 3 views of the cervical spine were obtained. FINDINGS: Bone alignment is normal. No fracture or dislocation is seen. Disc spaces are normal. There is mild degenerative spondylosis at C4-C5. Prevertebral soft tissues are normal. XR/XR cervical spine 3V IMPRESSION: Mild degenerative spondylosis.
--- NOTE | ~2021-05-19 | XR_ITS ---
EXAMINATION: XR ELBOW, LEFT CLINICAL INFORMATION: Pain COMPARISON: None TECHNIQUE: AP, lateral, and oblique views of the left elbow. FINDINGS: Bone alignment is normal. No acute fracture or dislocation is seen. There is a soft tissue calcification or ossification adjacent to the lateral humeral supracondylar region. This may be related to old trauma. The joint spaces are normal. There is no joint effusion. XR/XR elbow LT min 3V IMPRESSION: Small soft tissue calcification or ossification adjacent to the lateral condylar humerus otherwise unremarkable exam.
[2021-05-19 08:45] LABS: C Reactive Protein 0.07 mg/dL (< or = 0.50); Rheumatoid Factor < 15.0 IU/mL (<15.0)
[2021-05-19 09:05] LABS: ~HepC Num1 0.11 S/CO (0.00-0.79); ~Hepatitis C Antibody Nonreactive (Nonreactive)
[2021-05-19 09:11] LABS: Erythrocyte Sedimentation Rate 8 MM/HR (0-20)
[2021-05-21 07:07] LABS: Lyme Abs Screen <0.90 index
[2021-05-22 14:56] LABS: Anti Nuclear Antibody Screen NEGATIVE (NEGATIVE)
== END 2021-05-19 07:53 | disposition home or self-care (01) ==
LOC: HO.XRAY 07:52
PROVIDERS: PCP Internal Medicine; Visit Provider Internal Medicine
DX: M25.522 Pain in left elbow (principal); M54.2 Cervicalgia; M25.50 Pain in unspecified joint; M79.7 Fibromyalgia
CPT/HCPCS: 36415; 72040; 73080; 85652; 86038; 86039; 86140; 86431; 86617; 86618; 86803

== ENCOUNTER 2021-06-02 08:39 | Outpatient (REF) | payer OTHER, SELFPAY ==
--- NOTE | ~2021-06-02 | MR_ITS ---
MR LUMBAR SPINE WITHOUT IV CONTRAST CLINICAL INFORMATION: Lumbar region radiculopathy. COMPARISON: Lumbar spine MRI 10/01/2005 TECHNIQUE: MRI of the lumbar spine was obtained using routine sequences without contrast. FINDINGS: There are 5 nonrib-bearing lumbar-type vertebral bodies. Lumbar alignment is normal. The vertebral body heights are maintained. There is moderate to severe disc volume loss at L5-S1. There is disc desiccation at L2-L3, L4-L5, and L5-S1. There is no bone marrow edema. There are no acute fractures. Conus terminates at the L1-L2 level. There are no significant extraspinal soft tissue findings. L1-L2: Disc contour is normal. No central canal stenosis and no foraminal stenosis. L2-L3: Small annular disc bulge and mild bilateral facet arthropathy. No central canal stenosis and no foraminal stenosis. L3-L4: Diffuse annular disc bulge and mild bilateral facet arthropathy and ligamentum flavum thickening. No central canal stenosis and no foraminal stenosis. L4-L5: Diffuse annular disc bulge and moderate bilateral facet arthropathy and ligamentum flavum thickening. No central canal stenosis. Mild foraminal encroachment bilaterally. L5-S1: Grade 1 retrolisthesis. Diffuse disc osteophyte complex and moderate bilateral facet arthropathy. No central canal stenosis. Moderate to severe bilateral foraminal stenosis with mass effect on the exiting L5 nerve roots bilaterally. Chronic right hemilaminectomy changes. MR/MR lumbar spine wo con IMPRESSION: - At L5-S1, there are chronic right hemilaminectomy changes and advanced multifactorial degenerative changes result in moderate to severe bilateral foraminal stenosis with mass effect on the exiting L5 nerve roots bilaterally. - Additional spondylitic changes as discussed above.
== END 2021-06-02 08:40 | disposition home or self-care (01) ==
LOC: HO.MRI 08:39
PROVIDERS: Visit Provider Nurse Practitioner Family
DX: M54.16 Radiculopathy, lumbar region (principal); M47.816 Spondylosis without myelopathy or radiculopathy, lumbar region; Z98.890 Other specified postprocedural states
CPT/HCPCS: 72148

== ENCOUNTER 2021-07-03 07:40 | Emergency (ER) | payer OTHER, SELFPAY ==
--- NOTE | ~2021-07-03 | XR_ITS ---
EXAMINATION: XR TOES, LEFT CLINICAL INFORMATION: Left foot pain, rule out pinky toe fracture. COMPARISON: None TECHNIQUE: 3 views of the left toes were obtained. FINDINGS: There is acute, nondisplaced oblique fracture of the mid diaphysis of the proximal phalanx of the fifth digit. A small osseous density seen at the lateral base of the proximal phalanx of the third digit adjacent to the metatarsophalangeal joint. The remainder the digits are intact. The soft tissues are unremarkable. XR/XR toe LT min 2V IMPRESSION: 1. Acute, fifth digit proximal phalanx fracture as detailed above. 2. Small osseous density along the lateral margin of the fifth metatarsophalangeal joint is of indeterminate age. This could be secondary to old injury or degenerative in nature. An acute fracture cannot be completely excluded. Correlate with physical exam.
[2021-07-03 07:51] VITALS: BP 135/68; PULSE 101; RESP 18; TEMP 36.3; O2SAT 98; BMI 32.0
--- NOTE | 2021-07-03 08:39 | ED.GENADULT ---
HPI - General Adult General Chief complaint: Extremity Injury, Lower Stated complaint: Toe injury Time Seen by Provider: 07/03/21 08:39 Source: patient Mode of arrival: ambulatory Limitations: no limitations History of Present Illness HPI narrative: Patient is a 55 year old female presenting to the emergency department today with left 5th toe pain. Patient states that she stubbed her left 5th toe last night and has been having trouble walking on it ever since. Patient denies any other injuries from the incident. Patient denies hitting her head with the incident. Patient denies any loss of consciousness from the incident. Patient denies any dizziness, lightheadedness, abdominal pain, nausea, vomiting, fever, chills, blurry vision, double vision, loss of vision, chest pain, difficulty breathing, shortness of breath, back pain, night sweats, pain with urination, increased urinary frequency, increased urinary urgency, blood in her urine or stool, syncope or a near syncopal episode, bowel incontinence, bladder incontinence, bowel retention, bladder retention, or any other complaints at this time. Onset (ago): hour(s) Location: left and lower extremity Radiation: non-radiation Severity: mild Severity scale (1-10): 4 Quality: dull Pain Consistency: constant Relieving factors: none Exacerbating factors: movement Associated symptoms: denies other symptoms Treatments prior to arrival: none Related Data Previous Rx's Medication Instructions Recorded metformin 1,000 mg tablet 1,000 mg PO BID #180 tab 10/28/20 aspirin 81 mg tablet,delayed 81 mg PO DAILY #90 tab 12/24/20 release atorvastatin 40 mg tablet 40 mg PO DAILY #90 tab 01/13/21 amlodipine 5 mg tablet 5 mg PO DAILY #90 tab 02/18/21 ibuprofen 600 mg tablet 600 mg PO Q8H PRN #14 tab 04/02/21 tizanidine 2 mg tablet 2 mg PO Q8H PRN #14 tab 04/02/21 sitagliptin 100 mg tablet (Januvia) 100 mg PO DAILY 30 Days #30 tab 04/20/21 lisinopril 20 mg tablet 20 mg PO DAILY #30 tab 05/11/21 Allergies Allergy/AdvReac Type Severity Reaction Status Date / Time No Known Allergies Allergy Verified 07/03/21 07:54 Review of Systems Constitutional: Constitutional: Reports no additional constitutional complaints, Denies chills, Denies fever(s) and Denies night sweats Eyes: Eyes: Reports no additional eye complaints, Denies blurry vision, Denies change in vision, Denies diplopia, Denies eye discharge, Denies loss of vision and Denies eye pain ENT: Denies dizziness Cardiovascular: Cardiovascular: Reports no additional cardiovascular complaints, Denies chest pain, Denies lightheadedness, Denies Loss of Consciousness and Denies dyspnea Respiratory: Respiratory: Reports no additional respiratory complaints and Denies dyspnea Gastrointestinal: Gastrointestinal: Reports no additional gastrointestinal complaints, Denies abdominal pain, Denies melena, Denies hematochezia, Denies change in bowel habits and Denies change in stool character Genitourinary: Genitourinary: Denies hematuria, Denies urinary frequency, Denies dysuria, Denies urinary incontinence, Denies urinary hesitancy and Denies urinary urgency Musculoskeletal: Musculoskeletal: Reports no additional musculoskeletal complaints, Denies numbness and Denies tingling Comments: left 5th toe pain, bruising Neurologic: Denies dizziness, Denies loss of vision, Denies numbness and Denies tingling Psychiatric: Psychiatric: Reports no additional psychiatric complaints Endocrine: Endocrine: Reports no additional endocrine complaints Hematologic/Lymphatic: Hematologic/Lymphatic: Reports no additional hematologic/lymphatic complaints Allergic/Immunologic: Allergic/Immunologic: Reports no additional allergic/immunologic complaints [facility] Past Medical History Attestation statement: The following information was validated with the patient. 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 Sister No problems noted. Son No problems noted. Social History Social History Housing: Apartment Alcohol intake: former Patient Tobacco Use Status: Never used Tobacco Tobacco use type: Cigarette e-Cigarette/Vaping Use: Never Used Second Hand Smoke Exposure: No Advance Directives: No Advance Directives Information Provided: No service: No Current occupational status: employed Physical Exam ED Vital Signs: Vital Signs - 24 hr 07/03/21 07:51 Temperature 97.4 F Pulse Rate 101 H Respiratory Rate 18 Blood Pressure 135/68 Pulse Oximetry 98 BMI result Body Mass Index 32.0 Const General: cooperative, no acute distress, alert and awake Nutritional Appearance: well nourished Orientation/consciousness: patient oriented x3 Limitations: no limitations HENMT Head: Yes normal to inspection and Yes atraumatic Ears: hearing grossly normal bilaterally and external ears normal General nose exam: Normal external nose present, no nasal discharge noted and no epistaxis Face and sinus: Yes normal facial exam, No abrasion and No laceration Mouth: Normal oral and palatal mucosa present, no drooling and no muffled voice Eyes General: appearance normal, both eyes and all related structures Periorbital: periorbital findings normal Eyelids: Yes eyelids normal Conjunctivae: conjunctivae normal Pupils: Equal, round and reactive pupils present EOM: EOMs intact bilaterally Neck Neck: Yes normal visual inspection, Yes full ROM and Yes no lymphadenopathy Chest Chest palpation & inspection: normal inspection of the chest Resp Effort & Inspection: normal respiratory effort and able to speak in complete sentences Auscultation: clear to auscultation bilaterally Cardio Rate: regular rate Rhythm: regular rhythm GI Inspection: Yes normal to inspection Neuro General: patient oriented x3 and moves all extremities Cranial nerves: Yes Equal, round and reactive pupils present Cognition (Neuro): normal cognition Motor exam (neuro): 5/5 motor strength present throughout Sensory Exam: Normal double simultaneous stimulation for sensation Coordination: [id number] test normal Extrem Other: left 5th toe has mild bruising to the lateral aspect General: Yes full ROM and Yes capillary refill normal Psych Appearance: grossly normal Mental Status: mental status grossly normal Affect: normal affect Attitude: cooperative Thought process: Normal thought process present Thought content: Normal thought content present Insight: Good insight present (Psych) Procedures Orthopedic Splinting/Casting Injury #1: Side: left Lower Extremity Injury Location: foot Lower Extremity Immobilizer: post-op shoe Other Orthopedic Equipment: crutches Medical Decision Making MDM Narrative Medical decision making narrative: Patient is a 55 year old female presenting to the emergency department today with left 5th toe pain. Patient's physical exam showed mild bruising to the lateral aspect of the left 5th toe but was otherwise unremarkable. Patient's ROM, circulation, strength, and sensation were intact to the entire left lower extremity. Patient's left foot x-ray showed an acute fracture of the left 5th toe phalanx. I explained my physical exam findings as well as all test results to the patient. I answered all questions asked by the patient. Patient's foot was placed in a post-op shoe and she was given crutches with crutch instruction, without incident. Patient's PMS was intact prior to and after post-op shoe placement. I stressed the importance of the patient taking her medication as prescribed. I stressed the importance of the patient following up with her primary care provider and an orthopedist. I stressed the importance of the patient returning to the emergency department immediately if her symptoms were to worsen or if she were to develop any dizziness, shortness of breath, difficulty breathing, chest pain, blurry vision, loss of vision, nausea, vomiting, abdominal pain, fever, chills, back pain, or any other complaints. Patient verbalized agreement and understanding with this treatment plan and discharge. Differential Diagnosis Differential Diagnosis: toe fracture Medical Records Medical records reviewed: Yes I reviewed the patient's medical records. Imaging Data Left foot x-ray: Attestation: I personally reviewed and interpreted this imaging study as follows: My impression: Acute 5th toe phalanx fracture Radiologist's impression: EXAMINATION: XR TOES, LEFT CLINICAL INFORMATION: Left foot pain, rule out pinky toe fracture. COMPARISON: None TECHNIQUE: 3 views of the left toes were obtained. FINDINGS: There is acute, nondisplaced oblique fracture of the mid diaphysis of the proximal phalanx of the fifth digit. A small osseous density seen at the lateral base of the proximal phalanx of the third digit adjacent to the metatarsophalangeal joint. The remainder the digits are intact. The soft tissues are unremarkable. XR/XR toe LT min 2V IMPRESSION: 1. Acute, fifth digit proximal phalanx fracture as detailed above. 2. Small osseous density along the lateral margin of the fifth metatarsophalangeal joint is of indeterminate age. This could be secondary to old injury or degenerative in nature. An acute fracture cannot be completely excluded. Correlate with physical exam. Dictated By: Hector Ochoa MD Signed By: Electronically signed by Hector Ochoa MD 07/03/21 0844 Discharge Plan Discharge Clinical Impression: Fracture of toe Patient Disposition: Home, Self-Care Instructions: Crutch Instructions (ED), Toe Fracture (ED) Additional Instructions: Follow up with your primary care provider and an orthopedist. Return to the emergency department immediately if your symptoms worsen or if you develop any dizziness, shortness of breath, difficulty breathing, chest pain, blurry vision, loss of vision, nausea, vomiting, abdominal pain, fever, chills, back pain, or any other complaints. Prescriptions: No Action metformin 1,000 mg tablet 1,000 mg PO BID Qty: 180 1RF aspirin 81 mg tablet,delayed release (DR/EC) 81 mg PO DAILY Qty: 90 3RF amlodipine 5 mg tablet 5 mg PO DAILY Qty: 90 1RF lisinopril 20 mg tablet 20 mg PO DAILY Qty: 30 2RF Januvia 100 mg tablet 100 mg PO DAILY 30 Days Qty: 30 3RF tizanidine 2 mg tablet 2 mg PO Q8H PRN (Reason: muscle spasticity) Qty: 14 0RF ibuprofen 600 mg tablet 600 mg PO Q8H PRN (Reason: pain) Qty: 14 0RF atorvastatin 40 mg tablet 40 mg PO DAILY Qty: 90 1RF Referrals: [facility] [place] [facility] [Provider Group] Todd Candelaria MD [Primary Care Provider] - Interventions: ED Discharge Assessment Last Done: 07/03/21 09:29 Discharge Date/Time: 07/03/21 09:29 Print Language: Khmer
== END 2021-07-03 09:29 | disposition home or self-care (01) ==
PROVIDERS: Emergency Provider Emergency Medicine Emergency Medical Services; PCP Internal Medicine
DX: S92.512A Displaced fracture of proximal phalanx of left lesser toe(s), initial encounter for closed fracture (principal); I10 Essential (primary) hypertension; E11.9 Type 2 diabetes mellitus without complications; W22.09XA Striking against other stationary object, initial encounter; Y93.9 Activity, unspecified; Y92.9 Unspecified place or not applicable; Y99.9 Unspecified external cause status
CPT/HCPCS: 73660; 99283

== ENCOUNTER 2021-07-20 07:17 | Outpatient (REF) | payer OTHER, SELFPAY ==
--- NOTE | ~2021-07-20 | XR_ITS ---
EXAMINATION: XR FOOT, LEFT CLINICAL INFORMATION: Fracture COMPARISON: Previous x-ray June 2021 TECHNIQUE: AP, lateral, and oblique views of the left foot. FINDINGS: There is a minimally displaced fractures of the proximal phalanx of the fifth toe. This appears unchanged. No other fracture is seen. There are mild degenerative changes of the first MTP joint. There is soft tissue calcification or ossification adjacent to the lateral third MCP joints similar to previous exam. There is soft tissue swelling adjacent to the fracture. XR/XR foot LT min 3V IMPRESSION: No change in fracture of the proximal phalanx of the fifth toe.
== END 2021-07-20 07:18 | disposition home or self-care (01) ==
LOC: HO.HOSX 07:17
PROVIDERS: Visit Provider Physician Assistant
DX: S92.912A Unspecified fracture of left toe(s), initial encounter for closed fracture (principal)
CPT/HCPCS: 73630; 99202

== ENCOUNTER 2021-11-11 07:42 | Outpatient (REF) | payer OTHER, SELFPAY ==
[2021-11-11 08:05] LABS: MANUAL DIFF FLAG NO
[2021-11-11 08:23] LABS: Basophils Absolute Auto 0.1 X10*3/uL (0.0-0.2); Basophils Percent Auto 0.6 % (0-2); Eosinophils Absolute Auto 0.2 X10*3/uL (0.0-0.4); Eosinophils Percent Auto 2.2 % (0-4); Hematocrit 38.4 % (37.0-47.0); Hemoglobin 13.1 g/dl (12.0-16.0); Imm Gran Abs Auto 0.03 X10*3/uL (0.00-0.03); Imm Gran Pct Auto 0.3 % (0.0-0.4); Lymphocytes Absolute Auto 2.7 X10*3/uL (1.2-4.9); Lymphocytes Percent Auto 30.5 % (20-40); Mean Corpuscular HGB Conc 34.1 g/dl (31.0-35.0); Mean Corpuscular Volume 96.7 fL (80.0-98.0); Mean Platelet Volume 8.8 fL (9.4-12.3); Monocytes Absolute Auto 0.6 X10*3/uL (0.1-1.2); Monocytes Percent Auto 7.1 % (2-11); Neutrophils Absolute Auto 5.2 x10*3/uL (2.0-8.3); Neutrophils Percent Auto 59.3 % (45-73); Platelet Count 325 X10*3/uL (160-400); Red Blood Count 3.97 X10*6/uL (4.20-5.50); Red Cell Distribution Width 12.2 % (11.0-16.0); White Blood Count 8.8 X10*3/uL (4.8-10.8)
[2021-11-11 08:29] LABS: Estimated Average Glucose 163 mg/dL; Hemoglobin A1c % 7.3 %
[2021-11-11 09:01] LABS: Alanine Aminotransferase 30 U/L (0-31); Albumin Level 4.4 g/dL (3.5-5.0); Alkaline Phosphatase 78 U/L (39-117); Anion Gap 17 (12-20); Aspartate Amino Transferase 27 U/L (5-31); Bilirubin Total 0.6 mg/dL (0.0-1.0); Blood Urea Nitrogen 12 mg/dL (9-16); Calcium 9.4 mg/dL (8.4-10.2); Carbon Dioxide 21 mmol/L (22-29); Chloride 105 mmol/L (96-108); Cholesterol 127 mg/dL; Estimated Glomerular Filt Rate > 60; Glucose Fasting 120 mg/dL (60-99); HDL Cholesterol 52 mg/dL; LDL Cholesterol Calculated 59 mg/dl; Potassium 4.4 mmol/L (3.3-5.1); Sodium 139 mmol/L (135-145); Triglycerides 81 mg/dL
[2021-11-11 09:22] LABS: Appearance Urine Cloudy; Color Urine Yellow; Glucose Urine UA Negative (Negative); Leukocyte Esterase Urine Small (1+) (Negative); Nitrite Urine Negative (Negative); Specific Gravity - Urine 1.025 (1.005-1.025); UMIC TRIGGER UACC YES; Urine Blood Negative (Negative); Urine Ketones Trace mg/dL (Negative); Urine Protein Trace mg/dL (Neg-Trace)
[2021-11-11 09:24] LABS: Vitamin D 25-OH Total 24.6 ng/mL (>30)
[2021-11-11 09:46] LABS: Bacteria Urine 3+ (None Seen); Calcium Oxalate Crystals Urine Present; Hyaline Casts Urine 0-2 /LPF (0-2); RBC Urine 0-2 /HPF (0-2); UACC Culture Trigger YES
[2021-11-11 09:53] LABS: Creatinine Urine 201.71 mg/dL; Microalbum/Creatinine Ratio Ur 11.8 ug/mg cr
== END 2021-11-11 07:43 | disposition home or self-care (01) ==
LOC: HO.LAB 07:42
PROVIDERS: PCP Internal Medicine; Visit Provider Internal Medicine
DX: E55.9 Vitamin D deficiency, unspecified (principal); I10 Essential (primary) hypertension; E78.00 Pure hypercholesterolemia, unspecified; E11.9 Type 2 diabetes mellitus without complications
CPT/HCPCS: 36415; 80053; 80061; 81001; 82043; 82306; 83036; 84443; 85025; 87086

== ENCOUNTER 2021-11-12 14:30 | Outpatient (RCR) | payer OTHER, SELFPAY ==
--- NOTE | 2021-10-07 14:02 | MHC.OT.EP ---
[address] [phone] Occupational Therapy Plan of Care Date of Evaluation: 10/07/21 Diagnosis: Left elbow pain Assessment: Pt. is a 56 y/o female referred to OT for right elbow pain with s/s concurrent with lateral epicondylitis. Pt. presents with 4/10 pain in lateral elbow, decreased on air host strength, and difficulty performing grocery shopping and performing work duties. A 22.7% limitation is noted per the Quick DASH assessment. Pt would benefit from skilled OT to address noted barriers and assist in return to PLOF. Frequency and Duration: The patient will be seen 2x/wk for 6 weeks Short Term Goals: Decrease left elbow pain to 2/10 with BADL's/IADLs' IND with HEP IND with MH/cold pack for pain management IND with orthosis use as needed Recovery Auditor Goals: Pain free with BAD's/IADL's IND with progressive HEP Improve gross grasp to 55# Improve Quick DASH score to <10% Treatment Plan: Therapeutic Exercise Therapeutic Activity Home Exercise Program Splinting Patient Education ADL Training Ultrasound NMES Iontophoresis MHP Cold Packs Soft Tissue Mobilization Kinesiotaping Electronically Signed By: Maya Alva MS OTR/L Please Sign and return to therapist. Thank you once again for your referral.
--- NOTE | 2021-11-12 15:46 | MHC.OT.DC ---
[address] [phone] F: [phone] Occupational Therapy Discharge Note Provider: Todd Candelaria Diagnosis: Left elbow pain Date of Surgery: Date of Evaluation: 10/07/21 Date of Discharge: Treatments to Date: 9 Cancellations to Date: No Shows to Date: Discharge Status: Achieved Goals Improved Function Independent with HEP Discharge Summary: Pt reports pain improved. Painfree with daily activities. 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
== END 2021-11-12 15:46 | disposition home or self-care (01) ==
LOC: HO.OT 14:30
PROVIDERS: PCP Internal Medicine; Visit Provider Internal Medicine
DX: M25.522 Pain in left elbow (principal); M47.812 Spondylosis without myelopathy or radiculopathy, cervical region; M54.2 Cervicalgia
CPT/HCPCS: 97033; 97035; 97110; 97165

== ENCOUNTER 2021-12-23 14:00 | Outpatient (RCR) | payer OTHER, SELFPAY ==
--- NOTE | 2021-11-18 10:01 | MHC.PT.EP ---
[facility] [place] Office [place] Office [place] Office [address] [phone] F: [phone] F: [phone] F: [phone] F: [phone] Physical Therapy Plan of Care Date of Evaluation: Date of Surgery: Diagnosis: cervicalgia Assessment: Patient is 56 y.o female who presents to PT with chronic neck pain with impingement of R shoulder, intermittent radicular symptoms, not able to reproduce them during visit. She presents with poor posture, shoulder girdle muscle imbalances with both muscle tightness and weakness. 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 Frequency and Duration: The patient will be seen 2x/week for 4 weeks Short Term Goals: 2 weeks Patient presents without slouched posture in sitting and standing without cues to reduce pain level 4/10. Patient presents with increased R shoulder flexion 180 degrees without pain. Longterm Goals: 4 weeks Patient presents with increased cervical rotation 65 degrees bilaterally to look over shoulder when driving. Patient presents with increased R shoulder flexion 5/5 to be able to do her ADLs. Treatment Plan: Modalities to reduce pain, spasms and effusion. Manual therapy to restore motion and function. Therapeutic exercise to improve strength and flexibility. Neuromuscular re-education for posture and balance. Therapeutic activities to return to functional activities of daily living. Electronically signed by: Milo Bennett, PT, DPT Please sign and return to therapist. Thank you for your referral.
--- NOTE | 2021-12-23 15:33 | MHC.PT.DC ---
[facility] [place] [facility] [place] Office [place] Office [address] [phone] F: [phone] F: [phone] F: [phone] F: [phone] Physical Therapy Discharge Report Diagnosis: cervicalgia Date of Surgery: Date of Evaluation: 11/18/21 Date of Discharge: 12/23/21 Treatments to Date: 5 Cancellations to Date: No Shows to Date: Discharge Status: Independent with HEP Patient Elected to Stop Discharge Summary: She reports she is ready for discharge as she is unsure it will get better. She sees her MD next month, I encourage her to tell her MD about her symptoms that persist and that an MRI would be a good choice to see if there is a discogenic component to her symptoms since she is still having intermittent radicular sxs and is very sensitive to even light palpation in lower cervical spine. I reinforce HEP to improve posture and reduce strain on neck. She is discharged from PT at this time. Electronically signed by: Milo Bennett, PT, DPT Please sign and return to therapist. Thank you for your referral.
== END 2021-12-23 15:33 | disposition home or self-care (01) ==
LOC: HO.PT 14:00
PROVIDERS: PCP Internal Medicine; Visit Provider Internal Medicine
DX: M25.522 Pain in left elbow (principal); M47.812 Spondylosis without myelopathy or radiculopathy, cervical region; M54.2 Cervicalgia
CPT/HCPCS: 97110; 97112; 97140; 97162

== ENCOUNTER 2022-01-13 08:49 | Outpatient (REF) | payer OTHER, SELFPAY ==
--- NOTE | ~2022-01-13 | MR_ITS ---
EXAMINATION: MR CERVICAL SPINE WITHOUT CONTRAST CLINICAL INFORMATION: Cervical radiculopathy COMPARISON: None TECHNIQUE: MRI of the cervical spine was obtained using routine sequences without contrast. FINDINGS: Normal anatomic alignment. No suspicious marrow signal or focal osseous lesion. The vertebral body heights are maintained. Mild degenerative disc space narrowing from C4-C5 C6-C7 The cervical spinal cord is normal in caliber and signal Limited evaluation of the soft tissues of the neck without demonstrated abnormalities. The flow voids of the major cervical vessels are maintained. Normal appearance of the cervicomedullary junction and visualized posterior fossa SPINAL LEVELS: C2-C3: Partial fusion of the right facet joints with periarticular soft tissue edema. No significant spinal canal or neural foraminal narrowing C3-C4: Left greater than right facet arthropathy with partial left facet joint effusion. Mild left neural foraminal narrowing. No significant spinal canal stenosis C4-C5: Left eccentric disc osteophyte complex and mild facet arthropathy. Mild to moderate left neural foraminal narrowing. No significant spinal canal stenosis C5-C6: No significant spinal canal or neural foraminal narrowing C6-C7: Small disc osteophyte complex and mild facet arthropathy. No significant spinal canal or neural foraminal narrowing C7-T1: No significant spinal canal or neural foraminal narrowing Visualized only on sagittal imaging, there are small disc protrusions at T2-T3, T3-T4, and T4-T5 without evidence of high-grade spinal canal stenosis. MR/MR cervical spine wo con IMPRESSION: 1. Multilevel cervical spondylosis as described above without significant spinal canal stenosis, cord compression, or cord signal abnormality. There is mild to moderate left neural foraminal narrowing at C3-C4 and C4-C5. 2. Partial fusion of the right C2-C3 and left C3-C4 facet joints with periarticular edema involving the right C2-C3 facet joint..
== END 2022-01-13 08:50 | disposition home or self-care (01) ==
LOC: HO.MRI 08:49
PROVIDERS: Visit Provider Internal Medicine
DX: M47.812 Spondylosis without myelopathy or radiculopathy, cervical region (principal)
CPT/HCPCS: 72141

== ENCOUNTER 2022-02-19 07:40 | Outpatient (REF) | payer OTHER, SELFPAY ==
[2022-02-19 07:50] LABS: MANUAL DIFF FLAG NO
[2022-02-19 08:12] LABS: Basophils Absolute Auto 0.1 X10*3/uL (0.0-0.2); Basophils Percent Auto 0.7 % (0-2); Eosinophils Absolute Auto 0.2 X10*3/uL (0.0-0.4); Hematocrit 40.3 % (37.0-47.0); Hemoglobin 13.7 g/dl (12.0-16.0); Imm Gran Abs Auto 0.04 X10*3/uL (0.00-0.03); Imm Gran Pct Auto 0.4 % (0.0-0.4); Lymphocytes Absolute Auto 2.9 X10*3/uL (1.2-4.9); Lymphocytes Percent Auto 29.3 % (20-40); Mean Corpuscular Hemoglobin 32.9 pg (27.0-33.0); Mean Corpuscular Volume 96.6 fL (80.0-98.0); Mean Platelet Volume 8.9 fL (9.4-12.3); Monocytes Absolute Auto 0.8 X10*3/uL (0.1-1.2); Monocytes Percent Auto 7.6 % (2-11); Platelet Count 367 X10*3/uL (160-400); Red Blood Count 4.17 X10*6/uL (4.20-5.50); Red Cell Distribution Width 11.9 % (11.0-16.0); White Blood Count 9.9 X10*3/uL (4.8-10.8)
[2022-02-19 08:25] LABS: Estimated Average Glucose 189 mg/dL; Hemoglobin A1c % 8.2 %
[2022-02-19 08:46] LABS: Alanine Aminotransferase 32 U/L (0-31); Albumin Level 4.3 g/dL (3.5-5.0); Alkaline Phosphatase 86 U/L (39-117); Anion Gap 16 (12-20); Aspartate Amino Transferase 32 U/L (5-31); Bilirubin Total 0.6 mg/dL (0.0-1.0); Blood Urea Nitrogen 12 mg/dL (9-16); Carbon Dioxide 25 mmol/L (22-29); Chloride 103 mmol/L (96-108); Cholesterol 133 mg/dL; Estimated Glomerular Filt Rate > 60; Glucose Fasting 161 mg/dL (60-99); HDL Cholesterol 52 mg/dL; LDL Cholesterol Calculated 54 mg/dl; Potassium 4.2 mmol/L (3.3-5.1); Sodium 140 mmol/L (135-145); Triglycerides 139 mg/dL
[2022-02-19 09:11] LABS: Vitamin D 25-OH Total 34.5 ng/mL (>30)
== END 2022-02-19 07:41 | disposition home or self-care (01) ==
LOC: HO.LAB 07:40
PROVIDERS: PCP Internal Medicine; Visit Provider Internal Medicine
DX: E78.00 Pure hypercholesterolemia, unspecified (principal); E11.9 Type 2 diabetes mellitus without complications; E55.9 Vitamin D deficiency, unspecified; I10 Essential (primary) hypertension
CPT/HCPCS: 36415; 80053; 80061; 82306; 83036; 84443; 85025

== ENCOUNTER 2022-06-23 07:40 | Outpatient (REF) | payer OTHER, SELFPAY ==
[2022-06-23 08:30] LABS: Estimated Average Glucose 160 mg/dL; Hemoglobin A1c % 7.2 %
[2022-06-23 08:51] LABS: Alanine Aminotransferase 28 U/L (0-31); Albumin Level 4.4 g/dL (3.5-5.0); Alkaline Phosphatase 79 U/L (39-117); Anion Gap 12 (12-20); Aspartate Amino Transferase 28 U/L (5-31); Bilirubin Total 0.6 mg/dL (0.0-1.0); Blood Urea Nitrogen 10 mg/dL (9-16); Carbon Dioxide 27 mmol/L (22-29); Chloride 107 mmol/L (96-108); Cholesterol 123 mg/dL; Estimated Glomerular Filt Rate > 60; Glucose Fasting 157 mg/dL (60-99); HDL Cholesterol 56 mg/dL; LDL Cholesterol Calculated 50 mg/dl; Potassium 5.2 mmol/L (3.3-5.1); Sodium 141 mmol/L (135-145); Triglycerides 88 mg/dL
== END 2022-06-23 07:41 | disposition home or self-care (01) ==
LOC: HO.LAB 07:40
PROVIDERS: PCP Internal Medicine; Visit Provider Internal Medicine
DX: E11.9 Type 2 diabetes mellitus without complications (principal); E78.00 Pure hypercholesterolemia, unspecified
CPT/HCPCS: 36415; 80053; 80061; 83036

== ENCOUNTER 2022-06-30 12:55 | Outpatient (AMB) | payer OTHER, SELFPAY ==
[2022-06-30 13:24] VITALS: BP 126/84; PULSE 84; O2SAT 96; BMI 31.3
--- NOTE | 2022-06-30 13:24 | MHC.PC.OV ---
Vital Signs 06/30/22 13:24 Height 5 ft 2 in Weight 171 lb 2 oz BMI 31.3 BP 126/84 Blood Pressure Location Lt brachial Position Sitting Pulse 84 Pulse Source Pulse Oximeter Pulse Oximetry (%) 96 Oxygen Delivery Method Room Air Intake Visit Reasons: DM, hyperlipidemia Intake Note: Patient is here for a follow up for DM and hyperlipidemia. 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 Accompanied by: Self / Same As Patient Allergies No Known Allergies Allergy (Verified 01/19/23 15:50) Medication List - Last Reconciled 06/30/22 by Todd Candelaria MD amlodipine 5 mg PO DAILY aspirin 81 mg PO DAILY atorvastatin 40 mg PO DAILY cholecalciferol (vitamin D3) 50 mcg PO DAILY 90 days ibuprofen 600 mg PO Q8H PRN lisinopril 20 mg PO DAILY metformin 1,000 mg PO BID sitagliptin phosphate (Januvia) 100 mg PO DAILY 30 days Ventolin HFA 90 mcg/actuation (albuterol sulfate) 2 puffs inhalation Q6H PRN 30 days NS Tobacco use date assessed: 06/30/22 HPI DM, hyperlipidemia HPI Details Patient comes in today for her follow up visit States that she feels okay Is still dealing with recurrent neck and low back pain - has seen physical therapy and pain management for these issues in the past She denies any headaches or dizziness Denies any chest pains, no SOB No nausea/vomiting, no abdominal pain No change in bowel habits noted Had her follow up labs done last week - to discuss her results [facility] Medical History (Updated 01/24/23 @ 04:52 by Todd Candelaria MD) Overweight (BMI 25.0-29.9) Asthma Bunion, right foot Fracture of phalanx of toe of left foot Muscle spasm of back Lumbar radiculitis Myalgia Arthralgia Left elbow pain Headache Neck pain Low back pain Right knee pain Screening for osteoporosis Vitamin D deficiency Cervical spondylosis 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 Sister No problems noted. Son No problems noted. Social History Housing: Apartment Alcohol intake: current Alcohol intake frequency: holidays/special occasions only Patient Tobacco Use Status: Never used Tobacco Tobacco use type: Cigarette e-Cigarette/Vaping Use: Never Used Second Hand Smoke Exposure: No Substance Use Type: Marijuana service: No Current occupational status: employed Cognitive needs: No Hearing needs: No Vision needs: No Questionnaire PHQ-9 Over the last 2 weeks, how often have you been bothered by any of the following problems? 1. Little interest or pleasure in doing things: not at all 2. Feeling down, depressed, or hopeless: not at all 3. Trouble falling or staying asleep, or sleeping too much: not at all 4. Feeling tired or having little energy: not at all 5. Poor appetite or overeating: not at all 6. Feeling bad about yourself - or that you are a failure or have let yourself or your family down: not at all 7. Trouble concentrating on things, such as reading the newspaper or watching television: not at all 8. Moving or speaking so slowly that other people could have noticed. Or the opposite - being so fidgety or restless that you have been moving around a lot more than usual: not at all 9. Thoughts that you would be better off or of hurting yourself in some way: not at all Total score: 0 Depression Screening Interpretation: Negative 82200 - PHQ-9 Billing: Yes Source: Developed by Drs. August Escobar, Sherrie Diaz, Michael Son and colleagues, with an educational silvia from [employer]. Thrive Questionnaire Date Thrive assessed: 06/30/22 I am a: Patient What is your living situation today?: I have a steady place to live Within the past 12 months, did the food you bought not last and you didn't have the money to get more?: Never true Within the past 12 months, did you worry whether your food would run out before you got money to buy more?: Never true Do you have trouble paying for medicines?: No Do you have trouble getting transportation to medical appointments?: No Do you have trouble paying your heating and electricity bill?: No Do you have trouble taking care of your child, family member or friend?: No Do you have trouble with day-to-day activities such as bathing, preparing meals, shopping, managing finances, etc.?: No Are you currently unemployed and looking for a job?: No Are you interested in more education?: No Please select the resources that you would like help with: Utilities Currently or been in a relationship where the following occur: no concerns reported AUDIT C Alcohol Use Questionnaire (AUDIT-C) 1. How often do you have a drink containing alcohol?: Never 3. How often do you have six or more drinks on one occasion?: Never Total Score: 0 Score Reviewed/Action Taken: Yes JOI-7 AMB Questionnaire JOI-7 Date JOI - 7 assessed: 06/30/22 Feeling nervous, anxious, or on edge: 0 = Not at all Not being able to stop or control worryin = Not at all Worrying too much about different things: 0 = Not at all Trouble relaxin = Not at all Being so restless that it is hard to sit still: 0 = Not at all Becoming easily annoyed or irritable: 0 = Not at all Feeling afraid as if something awful might happen: 0 = Not at all Total JOI-7 score (0-4 normal; 5-9 mild; 10-14 moderate; 15-21 severe): 0 Source: Developed by Drs. August Escobar, Sherrie Diaz, Michael Son and colleagues, with an educational silvia from [employer]. Review of Systems Const Denies chills, Reports fatigue, Denies fever(s) and Denies headache(s) ENT Denies dysphagia, Denies dizziness, Denies otalgia, Denies headache(s), Reports neck pain (chronic), Denies odynophagia and Denies sore throat Card Denies chest pain, Denies palpitations and Denies dyspnea Resp Denies chest congestion, Denies cough, Denies dyspnea and Denies wheezing GI Denies abdominal pain, Denies constipation, Denies dysphagia, Denies heartburn, Denies diarrhea, Denies nausea, Denies odynophagia and Denies vomiting Denies difficulty voiding, Denies nocturia and Denies dysuria Musc Reports back pain (increasing), Reports arthralgias (left elbow, both knees) and Reports neck pain (chronic) Skin/Breast Denies rash Neuro Denies dizziness and Denies headache(s) Endo Reports fatigue and Denies palpitations Aller/Immun Denies wheezing Physical exam (Primary Care) Vital Signs: Last Vital Signs Pulse 84 06/30/22 13:24 BP 126/84 06/30/22 13:24 Pulse Ox 96 06/30/22 13:24 Oxygen Delivery Method Room Air 06/30/22 13:24 BMI result Body Mass Index 31.3 Tobacco/Smoking Status: Tobacco use Status Tobacco use date assessed 06/30/22 06/30/22 13:34 Patient Tobacco Use Status Never used Tobacco 06/30/22 13:34 Tobacco use type Cigarette 06/30/22 13:34 e-Cigarette/Vaping Use Never Used 06/30/22 13:34 PHQ-9: PHQ-9 Score PHQ-9: Total score 0 06/30/22 14:27 Depression Screening Interpretation: Negative Thrive Assessment: Date of Thrive Assessment Date Thrive assessed 06/30/22 06/30/22 13:34 Currently or been in a relationship where the following occur: no concerns reported Const General: no acute distress and alert Orientation/consciousness: patient oriented x3 HENMT Ears: TM's normal bilaterally and EAC's normal Throat: Yes posterior oropharynx normal and Yes tonsils normal (no TP congestion) Neck Neck: Yes no lymphadenopathy and Yes tender Resp Auscultation: clear to auscultation bilaterally, no rales and no wheezes Cardio Rate: regular rate Rhythm: regular rhythm Heart sounds: no murmurs GI Palpation (GI): Soft to palpation and nontender Auscultation: normal bowel sounds Back/Spine/Pelvis Cervical Spine: Cervical spine tenderness (increasing lately) Thoracic/Lumbar Spine: thoracic spinal tenderness and lumbar spinal tenderness Skin Rashes: no rashes Neuro General: patient oriented x3 Extrem General: Yes no clubbing, cyanosis or edema Right lower extremity: knee Details: tenderness and foot Details: tenderness Location: of the great toe Location: at the MTP joint Left lower extremity: knee Details: tenderness Results Reviewed Results Reviewed: Laboratory Tests 06/23/22 06/23/22 08:05 08:05 Sodium 141 Potassium 5.2 H D Creatinine 0.81 Estimated GFR > 60 Fasting Glucose 157 H Hemoglobin A1c % 7.2 Calcium 10.0 AST 28 ALT 28 Triglycerides 88 Cholesterol 123 LDL Cholesterol, Calc 50 HDL Cholesterol 56 Assessment and Plan Assessment & Plan (1) Diabetes mellitus: Code(s): E11.9 - Type 2 diabetes mellitus without complications Qualifiers: Diabetes mellitus complication status: with hyperglycemia Diabetes mellitus longwall foreman insulin use: without longwall foreman use Diabetes mellitus type: type 2 Qualified Code(s): E11.65 - Type 2 diabetes mellitus with hyperglycemia Plan: HgbA1c was at 7.2% on her labs done last week (was at 8.2% a few months ago) - goal is <7.0% Reinforced diabetic diet Continue Metformin 1000 mg BID and Januvia 100 mg QD (2) Pure hypercholesterolemia: Code(s): E78.00 - Pure hypercholesterolemia, unspecified Plan: Results of her labs done last week reviewed and discussed with patient Reinforced low cholesterol diet Continue Atorvastatin 40 mg QD Will recheck her labs and fasting lipids in 4 months for follow up (3) Benign essential hypertension: Code(s): I10 - Essential (primary) hypertension Plan: Reinforced low sodium diet - goal is systolic BP of 120 mm or less Continue Lisinopril 20 mg QD and Amlodipine 5 mg QD (4) 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: Code(s): M47.815 - Spondylosis without myelopathy or radiculopathy, thoracolumbar region Plan: Reinforced activity and weight-lifting restrictions Lumbar spine MRI done in May 2021 revealed findings of chronic right hemilaminectomy changes and advanced degenerative changes at L5-S1 resulting in moderate to severe bilateral foraminal stenosis with mass effect on the exiting L5 nerve roots bilaterally Was following up with pain management previously but she declined offer for injection Tx; plans to just call physical therapy for her lower back (and neck) when needed (5) Cervical spondylosis: Code(s): M47.812 - Spondylosis without myelopathy or radiculopathy, cervical region Plan: Cervical spine x-rays done last year showed (+) findings of cervical spondylosis Cervical spine MRI done in December 2021 revealed multilevel cervical spondylosis as described above without significant spinal canal stenosis, cord compression, or cord signal abnormality. There is mild to moderate left neural foraminal narrowing at C3-C4 and C4-C5. Partial fusion of the right C2-C3 and left C3-C4 facet joints with periarticular edema involving the right C2-C3 facet joint Continue Tizanidine 2 mg Q 8 hours PRN Went to physical therapy for her neck a few months ago and would like to continue PT on an as needed basis for now (6) Asthma: Code(s): J45.909 - Unspecified asthma, uncomplicated Qualifiers: Asthma severity: mild Asthma persistence: intermittent Asthma complication type: uncomplicated Qualified Code(s): J45.20 - Mild intermittent asthma, uncomplicated Plan: Controlled lately Continue Albuterol HFA 2 inhalations Q 6 hours PRN (7) Vitamin D deficiency: Code(s): E55.9 - Vitamin D deficiency, unspecified Plan: Continue Vitamin D3 2000 units QD (8) Obesity (BMI 30-39.9): Code(s): E66.9 - Obesity, unspecified Plan: Reinforced diet/exercise as tolerated/lose weight Plan Follow up in 4 months Orders: Orders Comprehensive [place]. Panel Fast 4 Months E78.00 - Pure hypercholesterolemia, unspecified Lipid Panel 4 Months E78.00 - Pure hypercholesterolemia, unspecified TSH reflex Free T4 4 Months E78.00 - Pure hypercholesterolemia, unspecified UA CC w/rflx Micro + Cult 4 Months R30.0 - Dysuria Microalbumin, Random (w Creat) 4 Months E11.9 - Type 2 diabetes mellitus without complications Vitamin D 25-OH Total 4 Months E55.9 - Vitamin D deficiency, unspecified Hemoglobin A1c 4 Months E11.9 - Type 2 diabetes mellitus without complications Complete Blood Count Auto Diff 4 Months I10 - Essential (primary) hypertension Coding Level of Care Code Est Pt Level 4 (32315) Diagnoses Type 2 diabetes mellitus with hyperglycemia, without long-term current use of insulin E11.65 Diabetes mellitus complication status: with hyperglycemia Diabetes mellitus snf insulin use: without longwall foreman use Diabetes mellitus type: type 2 Pure hypercholesterolemia E78.00 Benign essential hypertension I10 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
== END 2022-06-30 14:23 | disposition home or self-care (01) ==
LOC: HO.HMGH 12:55
PROVIDERS: PCP Internal Medicine; Visit Provider Internal Medicine
DX: E11.65 Type 2 diabetes mellitus with hyperglycemia (principal); E78.00 Pure hypercholesterolemia, unspecified; I10 Essential (primary) hypertension; M47.815 Spondylosis without myelopathy or radiculopathy, thoracolumbar region; M47.812 Spondylosis without myelopathy or radiculopathy, cervical region; J45.20 Mild intermittent asthma, uncomplicated; E55.9 Vitamin D deficiency, unspecified; E66.9 Obesity, unspecified
CPT/HCPCS: 99214

== ENCOUNTER 2022-10-27 09:57 | Outpatient (REF) | payer OTHER, SELFPAY ==
[2022-10-27 10:11] LABS: MANUAL DIFF FLAG NO
[2022-10-27 10:41] LABS: Basophils Absolute Auto 0.1 X10*3/uL (0.0-0.2); Basophils Percent Auto 0.9 % (0-2); Eosinophils Absolute Auto 0.2 X10*3/uL (0.0-0.4); Eosinophils Percent Auto 1.7 % (0-4); Hematocrit 36.9 % (37.0-47.0); Hemoglobin 12.4 g/dl (12.0-16.0); Imm Gran Abs Auto 0.03 X10*3/uL (0.00-0.03); Imm Gran Pct Auto 0.3 % (0.0-0.4); Lymphocytes Percent Auto 29.3 % (20-40); Mean Corpuscular HGB Conc 33.6 g/dl (31.0-35.0); Mean Corpuscular Hemoglobin 32.5 pg (27.0-33.0); Mean Corpuscular Volume 96.9 fL (80.0-98.0); Mean Platelet Volume 9.1 fL (9.4-12.3); Monocytes Absolute Auto 0.6 X10*3/uL (0.1-1.2); Monocytes Percent Auto 6.2 % (2-11); Neutrophils Absolute Auto 6.2 x10*3/uL (2.0-8.3); Neutrophils Percent Auto 61.6 % (45-73); Platelet Count 345 X10*3/uL (160-400); Red Blood Count 3.81 X10*6/uL (4.20-5.50); Red Cell Distribution Width 12.3 % (11.0-16.0); White Blood Count 10.1 X10*3/uL (4.8-10.8)
[2022-10-27 11:00] LABS: Estimated Average Glucose 151 mg/dL; Hemoglobin A1c % 6.9 % (<6.0)
[2022-10-27 11:10] LABS: Appearance Urine Cloudy; Color Urine Yellow; Glucose Urine UA Negative (Negative); Leukocyte Esterase Urine Small (1+) (Negative); Nitrite Urine Negative (Negative); UMIC TRIGGER UACC YES; Urine Blood Moderate (2+) (Negative); Urine Ketones Trace mg/dL (Negative); Urine Protein Negative (Neg-Trace)
[2022-10-27 11:14] LABS: Alanine Aminotransferase 33 U/L (0-31); Albumin Level 4.1 g/dL (3.5-5.0); Alkaline Phosphatase 89 U/L (39-117); Anion Gap 12 (12-20); Aspartate Amino Transferase 26 U/L (5-31); Bilirubin Total 0.3 mg/dL (0.0-1.0); Blood Urea Nitrogen 11 mg/dL (9-16); Calcium 9.6 mg/dL (8.4-10.2); Carbon Dioxide 23 mmol/L (22-29); Chloride 107 mmol/L (96-108); Cholesterol 137 mg/dL (<200); Estimated Glomerular Filt Rate > 60; Glucose Fasting 136 mg/dL (60-99); HDL Cholesterol 59 mg/dL (>40); LDL Cholesterol Calculated 46 mg/dL (<100); Potassium 4.4 mmol/L (3.3-5.1); Sodium 138 mmol/L (135-145); Total Protein 6.9 g/dL (6.5-8.0); Triglycerides 161 mg/dL (<150)
[2022-10-27 11:26] LABS: Bacteria Urine 2+ (None Seen); Calcium Oxalate Crystals Urine Present; Hyaline Casts Urine 0-2 /LPF (0-2); UACC Culture Trigger YES; WBC Urine 0-5 /HPF (0-5)
[2022-10-27 11:31] LABS: Creatinine Urine 165.09 mg/dL; Microalbum/Creatinine Ratio Ur 10.2 ug/mg cr (<30)
[2022-10-27 11:32] LABS: TSH reflex Free T4 0.58 uIU/mL (0.32-4.0)
== END 2022-10-27 09:58 | disposition home or self-care (01) ==
LOC: HO.LAB 09:57
PROVIDERS: Visit Provider Internal Medicine
DX: E78.00 Pure hypercholesterolemia, unspecified (principal); E11.9 Type 2 diabetes mellitus without complications; E55.9 Vitamin D deficiency, unspecified; I10 Essential (primary) hypertension; R30.0 Dysuria
CPT/HCPCS: 36415; 80053; 80061; 81001; 82043; 82306; 82570; 83036; 84443; 85025; 87086

== ENCOUNTER 2022-11-13 08:19 | Emergency (ER) | payer OTHER, SELFPAY ==
--- NOTE | ~2022-11-13 | CT_ITS ---
EXAMINATION: CT ABDOMEN AND PELVIS WITHOUT CONTRAST CLINICAL INFORMATION: Flank pain. COMPARISON: None available. TECHNIQUE: Multidetector volumetric imaging was performed from the superior aspect of the liver through the pubic symphysis. Sagittal and coronal reformatted images were obtained on the technologist's workstation. This CT examination was performed using dose optimization techniques as appropriate, variously including the following: *Automated exposure control *Adjustment of mA and/or kV according to patient size (this includes techniques or standardized protocols for targeted exams where dose is matched to indication/reason for exam; i.e. extremities or head) *Use of iterative reconstruction technique DLP: 580 mGy-cm FINDINGS: LUNG BASES: Linear pleural parenchymal scarring is evident in the lingula. LIVER, GALLBLADDER, AND BILIARY TREE: The liver is normal in size, shape, and attenuation. No focal hepatic lesion or biliary ductal dilatation is present. Gallbladder is surgically absent. PANCREAS: Unremarkable. SPLEEN: Unremarkable. ADRENAL GLANDS: Unremarkable. KIDNEYS AND URETERS: There is mild to moderate left hydronephrosis with 2 nonobstructing calculi within calyces in the interpolar region and left lower pole measuring 2 and 3 mm in diameter. There is [id number] associated left hydroureter terminating at the level of the ureteropelvic junction where there is a oblong calculus within the intramural portion of the ureterovesical junction at the bladder wall, measuring 6 x 3 x 3 mm . A punctate adjacent 2 mm calculus is also noted in this region. No additional renal or ureteral calculi are identified. Right kidney is normal. The kidneys are normal in size, shape, and attenuation. Mild to moderate left perinephric fat stranding as well as left periureteral fat stranding. BLADDER: As noted above, there are 2 calculi in the region of the bladder wall at the ureterovesical junction no additional calculi are identified. Bladder is otherwise normal in appearance. GASTROINTESTINAL TRACT: Moderate sigmoid diverticulosis with associated wall thickening, consistent with chronic muscular hypertrophy. Stomach, small bowel, and colon are normal in caliber. No surrounding fat stranding. No intraperitoneal free fluid or free air. Appendix is normal. ABDOMINAL WALL: No significant hernia is appreciated. LYMPH NODES: Normal. VASCULAR: Atherosclerotic calcifications are present in the abdominal aorta and iliac arteries. No aneurysmal dilatation. PELVIC VISCERA: The uterus and adnexa are unremarkable. OSSEOUS STRUCTURES: Moderate severe degenerative spondylosis at L5-S1 with both degenerative disc disease and facet arthropathy. Moderate degenerative disc disease in the lower thoracic spine. No acute fracture or malalignment. Mild osteoarthritis in the hips and SI joints. CT/CT abdomen pelvis wo IV con IMPRESSION: 1. A 6 mm calculus at the left ureterovesical junction produces [id number] left hydroureteronephrosis and perinephric and periureteral fat stranding. 2. Additional nonobstructing calculi in the left kidney. 3. Moderate sigmoid diverticulosis without evidence of acute diverticulitis. Fleischner guidelines were followed.
--- NOTE | 2022-11-13 08:25 | ED_ITS ---
HPI - General Adult General Chief complaint: General Medical Stated complaint: Question kidney stone back pain Time Seen by Provider: 11/13/22 08:25 Source: patient Mode of arrival: ambulatory Limitations: no limitations History of Present Illness HPI narrative: Patient is a 57 year old assigned female at with a history of DM presenting to the emergency department today with left flank pain. Patient states that she has been having left sided flank pain for the last few hours and is concerned that it is a kidney stone. Patient denies any dizziness, lightheadedness, nausea, vomiting, fever, chills, blurry vision, double vision, loss of vision, chest pain, difficulty breathing, shortness of breath, back pain, night sweats, pain with urination, increased urinary frequency, increased urinary urgency, blood in her stool, syncope or a near syncopal episode, recent trauma or falls, bowel incontinence, bladder incontinence, bowel retention, bladder retention, or any other complaints at this time. Onset (ago): hour(s) Location: left (flank) Severity: mild Severity scale (1-10): 3 Quality: aching and dull Pain Consistency: constant Relieving factors: none Exacerbating factors: none Associated symptoms: denies other symptoms Treatments prior to arrival: none Related Data Previous Rx's Medication Instructions Recorded ibuprofen 600 mg tablet 600 mg PO Q8H PRN pain #14 tabs 04/02/21 aspirin 81 mg tablet,delayed 81 mg PO DAILY #90 tabs 12/14/21 release atorvastatin 40 mg tablet 40 mg PO DAILY #90 tabs 04/05/22 albuterol sulfate 90 mcg/actuation 2 puff inhalation Q6H PRN for 07/11/22 aerosol inhaler (Ventolin HFA) wheezing #18 ea sitagliptin phosphate 100 mg 100 mg PO DAILY 30 days #30 tabs 08/16/22 tablet (Januvia) amlodipine 5 mg tablet 5 mg PO DAILY #90 tabs 09/07/22 metformin 1,000 mg tablet 1,000 mg PO BID #180 tabs 09/07/22 cholecalciferol (vitamin D3) 50 50 mcg PO DAILY 90 days #90 caps 09/08/22 mcg (2,000 unit) capsule lisinopril 20 mg tablet 20 mg PO DAILY #90 tabs 09/25/22 naproxen 500 mg tablet 500 mg PO BID 7 days #14 tabs 11/13/22 prednisone 20 mg tablet 20 mg PO DAILY 7 days #7 tabs 11/13/22 tamsulosin 0.4 mg capsule 0.4 mg PO DAILY #7 caps 11/13/22 Allergies Allergy/AdvReac Type Severity Reaction Status Date / Time No Known Allergies Allergy Verified 06/30/22 14:19 Review of Systems 2 Constitutional: Constitutional: Reports no additional constitutional complaints, Denies chills, Denies fever(s) and Denies night sweats Eyes: Eyes: Reports no additional eye complaints, Denies blurry vision, Denies change in vision, Denies diplopia, Denies eye discharge, Denies loss of vision and Denies eye pain ENT: Denies dizziness Cardiovascular: Cardiovascular: Reports no additional cardiovascular complaints, Denies chest pain, Denies lightheadedness, Denies Loss of Consciousness and Denies dyspnea Respiratory: Respiratory: Reports no additional respiratory complaints and Denies dyspnea Gastrointestinal: Gastrointestinal: Reports no additional gastrointestinal complaints, Denies abdominal pain, Denies melena, Denies hematochezia, Denies change in bowel habits and Denies change in stool character Genitourinary: Genitourinary: Denies hematuria, Denies urinary frequency, Denies dysuria, Denies urinary incontinence, Denies urinary hesitancy and Denies urinary urgency Comments: left flank pain Musculoskeletal: Musculoskeletal: Reports no additional musculoskeletal complaints, Denies numbness and Denies tingling Neurologic: Denies dizziness, Denies loss of vision, Denies numbness and Denies tingling Psychiatric: Psychiatric: Reports no additional psychiatric complaints Endocrine: Endocrine: Reports no additional endocrine complaints Hematologic/Lymphatic: Hematologic/Lymphatic: Reports no additional hematologic/lymphatic complaints Allergic/Immunologic: Allergic/Immunologic: Reports no additional allergic/immunologic complaints [facility] Past Medical History Attestation statement: The following information was validated with the patient. 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 Sister No problems noted. Son No problems noted. Social History Social History Housing: Apartment Alcohol intake: current Alcohol intake frequency: holidays/special occasions only Patient Tobacco Use Status: Never used Tobacco Tobacco use type: Cigarette Smoked in Last 30 Days: No e-Cigarette/Vaping Use: Never Used Second Hand Smoke Exposure: No Use of substances other than those prescribed or required for medical reasons: Yes Substance Use Type: Marijuana Advance Directives: No Advance Directives Information Provided: No Patient : No service: No Current occupational status: employed Cognitive needs: No Hearing needs: No Vision needs: No Physical Exam ED Vital Signs: Vital Signs - 24 hr 11/13/22 08:32 Temperature 97.5 F Pulse Rate 98 Respiratory Rate 17 Blood Pressure 143/74 H Pulse Oximetry 98 Oxygen Delivery Method Room Air BMI result Body Mass Index 29.7 Const General: cooperative, no acute distress, alert and awake Nutritional Appearance: well nourished Orientation/consciousness: patient oriented x3 Limitations: no limitations HENMT Head: Yes normal to inspection and Yes atraumatic Ears: hearing grossly normal bilaterally and external ears normal General nose exam: Normal external nose present, no nasal discharge noted and no epistaxis Face and sinus: Yes normal facial exam, No abrasion and No laceration Mouth: Normal oral and palatal mucosa present, no drooling and no muffled voice Eyes General: appearance normal, both eyes and all related structures Periorbital: periorbital findings normal Eyelids: Yes eyelids normal Conjunctivae: conjunctivae normal Pupils: Equal, round and reactive pupils present EOM: EOMs intact bilaterally Neck Neck: Yes normal visual inspection, Yes full ROM and Yes no lymphadenopathy Chest Chest palpation & inspection: normal inspection of the chest Resp Effort & Inspection: normal respiratory effort and able to speak in complete sentences Auscultation: clear to auscultation bilaterally Cardio Rate: regular rate Rhythm: regular rhythm GI Inspection: Yes normal to inspection Palpation (GI): Soft to palpation, not firm, nontender and no guarding General: Yes CVA tenderness on the left Back/Spine/Pelvis Back: CVA tenderness Neuro General: patient oriented x3 and moves all extremities Cranial nerves: Yes Equal, round and reactive pupils present Cognition (Neuro): normal cognition Motor exam (neuro): 5/5 motor strength present throughout Sensory Exam: Normal double simultaneous stimulation for sensation Coordination: [id number] test normal Extrem General: Yes normal to inspection, Yes full ROM and Yes capillary refill normal Psych Appearance: grossly normal Mental Status: mental status grossly normal Affect: normal affect Attitude: cooperative Thought process: Normal thought process present Thought content: Normal thought content present Insight: Good insight present (Psych) Medications Administered Discontinued Medications Generic Name Dose Route Start Last Admin Trade Name Svetlana PRN Reason Stop Dose Admin Sodium Chloride 1,000 mls @ 999 mls/hr 11/13/22 08:45 11/13/22 09:15 Ns IV 11/13/22 09:45 999 mls/hr .Q1H1M GIORGI Administration Ketorolac Tromethamine 15 mg 11/13/22 09:06 11/13/22 09:25 Ketorolac Tromethamine 15 Mg/Ml Vial IVPUSH 11/13/22 09:07 15 mg ONCE ONE Administration Medical Decision Making Medical Decision Making [facility] Narrative: Patient is a 57 year old assigned female at with a history of DM presenting to the emergency department today with left flank pain. Patient's physical exam was as noted in the physical exam portion of this note. Patient's blood work showed an elevated WBC count of 15.1 but were otherwise unremarkable. Patient's urine showed positive leuks and blood but was otherwise unremarkable. Patient's CT abd/pelvis showed a 6mm calculus at the left ureterovesical junction causing [id number] hydroureternephrosis and perinephric fat stranding. I spoke with the Urology team who agreed the patient is appropriate for discharge and to follow up with their office. I explained my physical exam findings as well as all test results to the patient. I answered all questions asked by the patient. Patient received IV toradol which she stated helped her symptoms significantly. I stressed the importance of the patient taking her medication as prescribed. I stressed the importance of the patient following up with her primary care provider and urologist. I stressed the importance of the patient returning to the emergency department immediately if her symptoms were to worsen or if she were to develop any dizziness, shortness of breath, difficulty breathing, chest pain, blurry vision, loss of vision, nausea, vomiting, abdominal pain, fever, chills, back pain, or any other complaints. Patient verbalized agreement and understanding with this treatment plan and discharge. Differential Diagnosis Differential Diagnoses: The differential diagnosis associated with the presentation includes Kidney stone UTI Admission/Observation Consideration of admission/observation: Escalation of care including admission/observation considered Patient would have been admitted to the hospital had her work up had any findings where hospital admission was appropriate and her clinical presentation warranted hospital admission. Consult Healthcare Provider Management of the patient was discussed with: Sociocultural Anthropology Professor (spoke to the urologist ) Lab Data [facility] Lab Attestation statement: I reviewed the patient's lab results. My interpretation of these studies and their corresponding are reported in the MDM Rationale portion of this note. 11/13/22 08:42 11/13/22 08:42 Labs: Lab Results 11/13/22 11/13/22 11/13/22 Range/Units 08:42 08:42 08:42 WBC 15.1 H (4.8-10.8) X10*3/uL RBC 4.26 (4.20-5.50) X10*6/uL Hgb 13.8 (12.0-16.0) g/dl Hct 41.0 (37.0-47.0) % MCV 96.2 (80.0-98.0) fL MCH 32.4 (27.0-33.0) pg MCHC 33.7 (31.0-35.0) g/dl RDW 12.0 (11.0-16.0) % Plt Count 362 (160-400) X10*3/uL MPV 8.8 L (9.4-12.3) fL Immature Gran % (Auto) 0.4 (0.0-0.4) % Neut % (Auto) 84.6 H (45-73) % Lymph % (Auto) 8.7 L (20-40) % Ness % (Auto) 5.5 (2-11) % Eos % (Auto) 0.3 (0-4) % Baso % (Auto) 0.5 (0-2) % Lymph # (Auto) 1.3 (1.2-4.9) X10*3/uL Ness # (Auto) 0.8 (0.1-1.2) X10*3/uL Eos # (Auto) 0.0 (0.0-0.4) X10*3/uL Baso # (Auto) 0.1 (0.0-0.2) X10*3/uL Abs Immat Gran (auto) 0.06 H (0.00-0.03) X10*3/uL Absolute Neuts (auto) 12.8 H (2.0-8.3) x10*3/uL Absolute Nucleated RBC 0.000 (0.0-0.012) X10*3/uL Nucleated RBC % (auto) 0.0 (0.0-0.2) /100WBC Sodium 139 (135-145) mmol/L Potassium 3.9 (3.3-5.1) mmol/L Chloride 106 (96-108) mmol/L Carbon Dioxide 18 L (22-29) mmol/L Anion Gap 19 (12-20) BUN 11 (9-16) mg/dL Creatinine 0.87 (0.5-1.4) mg/dL Estim Creat Clear Calc 71.3 Estimated GFR > 60 Random Glucose 224 H (60-115) mg/dL Lactic Acid (0.5-2.0) mmol/L Calcium 9.9 (8.4-10.2) mg/dL Total Bilirubin 0.6 (0.0-1.0) mg/dL AST 28 (5-31) U/L ALT 27 (0-31) U/L Alkaline Phosphatase 87 (39-117) U/L Total Protein 7.5 (6.5-8.0) g/dL Albumin 4.4 (3.5-5.0) g/dL Urine Color Dark Yellow Cancelled Urine Appearance Hazy Cancelled Urine pH 5.0 (5.0-9.0) Ur Specific Harrington (1.005-1.025) Urine Protein (Neg-Trace) mg/dL Urine Glucose (UA) (Negative) mg/dL Urine Ketones (Negative) mg/dL Urine Blood (Negative) Urine Nitrite (Negative) Ur Leukocyte Esterase (Negative) Urine RBC (0-2) /HPF Urine WBC (0-5) /HPF Urine WBC Clumps Ur Squamous Epith Cells (0-2) /HPF Ur Transition Epith Cell Ur Renal Epithelial Cell Calcium Oxalate Crystal Leucine Crystals Cystine Crystals Tyrosine Crystals Other Crystals Urine Bacteria (None Seen) Urine Parasites Bilirubin Casts Epithelial Casts Fatty Casts Hyaline Casts (0-2) /LPF Granular Casts Waxy Casts Broad Casts RBC Casts WBC Casts Other Casts Urine Trichomonas Urine Yeast 11/13/22 11/13/22 11/13/22 Range/Units 08:42 08:42 08:42 WBC (4.8-10.8) X10*3/uL RBC (4.20-5.50) X10*6/uL Hgb (12.0-16.0) g/dl Hct (37.0-47.0) % MCV (80.0-98.0) fL MCH (27.0-33.0) pg MCHC (31.0-35.0) g/dl RDW (11.0-16.0) % Plt Count (160-400) X10*3/uL MPV (9.4-12.3) fL Immature Gran % (Auto) (0.0-0.4) % Neut % (Auto) (45-73) % Lymph % (Auto) (20-40) % Ness % (Auto) (2-11) % Eos % (Auto) (0-4) % Baso % (Auto) (0-2) % Lymph # (Auto) (1.2-4.9) X10*3/uL Ness # (Auto) (0.1-1.2) X10*3/uL Eos # (Auto) (0.0-0.4) X10*3/uL Baso # (Auto) (0.0-0.2) X10*3/uL Abs Immat Gran (auto) (0.00-0.03) X10*3/uL Absolute Neuts (auto) (2.0-8.3) x10*3/uL Absolute Nucleated RBC (0.0-0.012) X10*3/uL Nucleated RBC % (auto) (0.0-0.2) /100WBC Sodium (135-145) mmol/L Potassium (3.3-5.1) mmol/L Chloride (96-108) mmol/L Carbon Dioxide (22-29) mmol/L Anion Gap (12-20) BUN (9-16) mg/dL Creatinine (0.5-1.4) mg/dL Estim Creat Clear Calc Estimated GFR Random Glucose (60-115) mg/dL Lactic Acid (0.5-2.0) mmol/L Calcium (8.4-10.2) mg/dL Total Bilirubin (0.0-1.0) mg/dL AST (5-31) U/L ALT (0-31) U/L Alkaline Phosphatase (39-117) U/L Total Protein (6.5-8.0) g/dL Albumin (3.5-5.0) g/dL Urine Color Urine Appearance Urine pH Cancelled (5.0-9.0) Ur Specific [place] 1.025 Cancelled (1.005-1.025) Urine Protein 100 (2+) H Cancelled (Neg-Trace) mg/dL Urine Glucose (UA) >=1000 H (Negative) mg/dL Urine Ketones (Negative) mg/dL Urine Blood (Negative) Urine Nitrite (Negative) Ur Leukocyte Esterase (Negative) Urine RBC (0-2) /HPF Urine WBC (0-5) /HPF Urine WBC Clumps Ur Squamous Epith Cells (0-2) /HPF Ur Transition Epith Cell Ur Renal Epithelial Cell Calcium Oxalate Crystal Leucine Crystals Cystine Crystals Tyrosine Crystals Other Crystals Urine Bacteria (None Seen) Urine Parasites Bilirubin Casts Epithelial Casts Fatty Casts Hyaline Casts (0-2) /LPF Granular Casts Waxy Casts Broad Casts RBC Casts WBC Casts Other Casts Urine Trichomonas Urine Yeast 11/13/22 11/13/22 11/13/22 Range/Units 08:42 08:42 08:42 WBC (4.8-10.8) X10*3/uL RBC (4.20-5.50) X10*6/uL Hgb (12.0-16.0) g/dl Hct (37.0-47.0) % MCV (80.0-98.0) fL MCH (27.0-33.0) pg MCHC (31.0-35.0) g/dl RDW (11.0-16.0) % Plt Count (160-400) X10*3/uL MPV (9.4-12.3) fL Immature Gran % (Auto) (0.0-0.4) % Neut % (Auto) (45-73) % Lymph % (Auto) (20-40) % Ness % (Auto) (2-11) % Eos % (Auto) (0-4) % Baso % (Auto) (0-2) % Lymph # (Auto) (1.2-4.9) X10*3/uL Ness # (Auto) (0.1-1.2) X10*3/uL Eos # (Auto) (0.0-0.4) X10*3/uL Baso # (Auto) (0.0-0.2) X10*3/uL Abs Immat Gran (auto) (0.00-0.03) X10*3/uL Absolute Neuts (auto) (2.0-8.3) x10*3/uL Absolute Nucleated RBC (0.0-0.012) X10*3/uL Nucleated RBC % (auto) (0.0-0.2) /100WBC Sodium (135-145) mmol/L Potassium (3.3-5.1) mmol/L Chloride (96-108) mmol/L Carbon Dioxide (22-29) mmol/L Anion Gap (12-20) BUN (9-16) mg/dL Creatinine (0.5-1.4) mg/dL Estim Creat Clear Calc Estimated GFR Random Glucose (60-115) mg/dL Lactic Acid (0.5-2.0) mmol/L Calcium (8.4-10.2) mg/dL Total Bilirubin (0.0-1.0) mg/dL AST (5-31) U/L ALT (0-31) U/L Alkaline Phosphatase (39-117) U/L Total Protein (6.5-8.0) g/dL Albumin (3.5-5.0) g/dL Urine Color Urine Appearance Urine pH (5.0-9.0) Ur Specific Harrington (1.005-1.025) Urine Protein (Neg-Trace) mg/dL Urine Glucose (UA) Cancelled (Negative) mg/dL Urine Ketones Negative Cancelled (Negative) mg/dL Urine Blood Large (3+) H Cancelled (Negative) Urine Nitrite Negative (Negative) Ur Leukocyte Esterase (Negative) Urine RBC (0-2) /HPF Urine WBC (0-5) /HPF Urine WBC Clumps Ur Squamous Epith Cells (0-2) /HPF Ur Transition Epith Cell Ur Renal Epithelial Cell Calcium Oxalate Crystal Leucine Crystals Cystine Crystals Tyrosine Crystals Other Crystals Urine Bacteria (None Seen) Urine Parasites Bilirubin Casts Epithelial Casts Fatty Casts Hyaline Casts (0-2) /LPF Granular Casts Waxy Casts Broad Casts RBC Casts WBC Casts Other Casts Urine Trichomonas Urine Yeast 11/13/22 11/13/22 11/13/22 Range/Units 08:42 08:42 08:42 WBC (4.8-10.8) X10*3/uL RBC (4.20-5.50) X10*6/uL Hgb (12.0-16.0) g/dl Hct (37.0-47.0) % MCV (80.0-98.0) fL MCH (27.0-33.0) pg MCHC (31.0-35.0) g/dl RDW (11.0-16.0) % Plt Count (160-400) X10*3/uL MPV (9.4-12.3) fL Immature Gran % (Auto) (0.0-0.4) % Neut % (Auto) (45-73) % Lymph % (Auto) (20-40) % Ness % (Auto) (2-11) % Eos % (Auto) (0-4) % Baso % (Auto) (0-2) % Lymph # (Auto) (1.2-4.9) X10*3/uL Ness # (Auto) (0.1-1.2) X10*3/uL Eos # (Auto) (0.0-0.4) X10*3/uL Baso # (Auto) (0.0-0.2) X10*3/uL Abs Immat Gran (auto) (0.00-0.03) X10*3/uL Absolute Neuts (auto) (2.0-8.3) x10*3/uL Absolute Nucleated RBC (0.0-0.012) X10*3/uL Nucleated RBC % (auto) (0.0-0.2) /100WBC Sodium (135-145) mmol/L Potassium (3.3-5.1) mmol/L Chloride (96-108) mmol/L Carbon Dioxide (22-29) mmol/L Anion Gap (12-20) BUN (9-16) mg/dL Creatinine (0.5-1.4) mg/dL Estim Creat Clear Calc Estimated GFR Random Glucose (60-115) mg/dL Lactic Acid (0.5-2.0) mmol/L Calcium (8.4-10.2) mg/dL Total Bilirubin (0.0-1.0) mg/dL AST (5-31) U/L ALT (0-31) U/L Alkaline Phosphatase (39-117) U/L Total Protein (6.5-8.0) g/dL Albumin (3.5-5.0) g/dL Urine Color Urine Appearance Urine pH (5.0-9.0) Ur Specific [place] (1.005-1.025) Urine Protein (Neg-Trace) mg/dL Urine Glucose (UA) (Negative) mg/dL Urine Ketones (Negative) mg/dL Urine Blood (Negative) Urine Nitrite Cancelled (Negative) Ur Leukocyte Esterase Moderate (2+) H Cancelled (Negative) Urine RBC >20 H Cancelled (0-2) /HPF Urine WBC 6-10 (0-5) /HPF Urine WBC Clumps Ur Squamous Epith Cells (0-2) /HPF Ur Transition Epith Cell Ur Renal Epithelial Cell Calcium Oxalate Crystal Leucine Crystals Cystine Crystals Tyrosine Crystals Other Crystals Urine Bacteria (None Seen) Urine Parasites Bilirubin Casts Epithelial Casts Fatty Casts Hyaline Casts (0-2) /LPF Granular Casts Waxy Casts Broad Casts RBC Casts WBC Casts Other Casts Urine Trichomonas Urine Yeast 11/13/22 11/13/22 11/13/22 Range/Units 08:42 08:42 08:42 WBC (4.8-10.8) X10*3/uL RBC (4.20-5.50) X10*6/uL Hgb (12.0-16.0) g/dl Hct (37.0-47.0) % MCV (80.0-98.0) fL MCH (27.0-33.0) pg MCHC (31.0-35.0) g/dl RDW (11.0-16.0) % Plt Count (160-400) X10*3/uL MPV (9.4-12.3) fL Immature Gran % (Auto) (0.0-0.4) % Neut % (Auto) (45-73) % Lymph % (Auto) (20-40) % Ness % (Auto) (2-11) % Eos % (Auto) (0-4) % Baso % (Auto) (0-2) % Lymph # (Auto) (1.2-4.9) X10*3/uL Ness # (Auto) (0.1-1.2) X10*3/uL Eos # (Auto) (0.0-0.4) X10*3/uL Baso # (Auto) (0.0-0.2) X10*3/uL Abs Immat Gran (auto) (0.00-0.03) X10*3/uL Absolute Neuts (auto) (2.0-8.3) x10*3/uL Absolute Nucleated RBC (0.0-0.012) X10*3/uL Nucleated RBC % (auto) (0.0-0.2) /100WBC Sodium (135-145) mmol/L Potassium (3.3-5.1) mmol/L Chloride (96-108) mmol/L Carbon Dioxide (22-29) mmol/L Anion Gap (12-20) BUN (9-16) mg/dL Creatinine (0.5-1.4) mg/dL Estim Creat Clear Calc Estimated GFR Random Glucose (60-115) mg/dL Lactic Acid (0.5-2.0) mmol/L Calcium (8.4-10.2) mg/dL Total Bilirubin (0.0-1.0) mg/dL AST (5-31) U/L ALT (0-31) U/L Alkaline Phosphatase (39-117) U/L Total Protein (6.5-8.0) g/dL Albumin (3.5-5.0) g/dL Urine Color Urine Appearance Urine pH (5.0-9.0) Ur Specific [place] (1.005-1.025) Urine Protein (Neg-Trace) mg/dL Urine Glucose (UA) (Negative) mg/dL Urine Ketones (Negative) mg/dL Urine Blood (Negative) Urine Nitrite (Negative) Ur Leukocyte Esterase (Negative) Urine RBC (0-2) /HPF Urine WBC Cancelled (0-5) /HPF Urine WBC Clumps Cancelled Ur Squamous Epith Cells 0-2 Cancelled (0-2) /HPF Ur Transition Epith Cell Cancelled Ur Renal Epithelial Cell Cancelled Calcium Oxalate Crystal Present Cancelled Leucine Crystals Cancelled Cystine Crystals Cancelled Tyrosine Crystals Cancelled Other Crystals Cancelled Urine Bacteria None Seen (None Seen) Urine Parasites Bilirubin Casts Epithelial Casts Fatty Casts Hyaline Casts (0-2) /LPF Granular Casts Waxy Casts Broad Casts RBC Casts WBC Casts Other Casts Urine Trichomonas Urine Yeast 11/13/22 11/13/22 11/13/22 Range/Units 08:42 08:42 09:13 WBC (4.8-10.8) X10*3/uL RBC (4.20-5.50) X10*6/uL Hgb (12.0-16.0) g/dl Hct (37.0-47.0) % MCV (80.0-98.0) fL MCH (27.0-33.0) pg MCHC (31.0-35.0) g/dl RDW (11.0-16.0) % Plt Count (160-400) X10*3/uL MPV (9.4-12.3) fL Immature Gran % (Auto) (0.0-0.4) % Neut % (Auto) (45-73) % Lymph % (Auto) (20-40) % Ness % (Auto) (2-11) % Eos % (Auto) (0-4) % Baso % (Auto) (0-2) % Lymph # (Auto) (1.2-4.9) X10*3/uL Ness # (Auto) (0.1-1.2) X10*3/uL Eos # (Auto) (0.0-0.4) X10*3/uL Baso # (Auto) (0.0-0.2) X10*3/uL Abs Immat Gran (auto) (0.00-0.03) X10*3/uL Absolute Neuts (auto) (2.0-8.3) x10*3/uL Absolute Nucleated RBC (0.0-0.012) X10*3/uL Nucleated RBC % (auto) (0.0-0.2) /100WBC Sodium (135-145) mmol/L Potassium (3.3-5.1) mmol/L Chloride (96-108) mmol/L Carbon Dioxide (22-29) mmol/L Anion Gap (12-20) BUN (9-16) mg/dL Creatinine (0.5-1.4) mg/dL Estim Creat Clear Calc Estimated GFR Random Glucose (60-115) mg/dL Lactic Acid 1.5 (0.5-2.0) mmol/L Calcium (8.4-10.2) mg/dL Total Bilirubin (0.0-1.0) mg/dL AST (5-31) U/L ALT (0-31) U/L Alkaline Phosphatase (39-117) U/L Total Protein (6.5-8.0) g/dL Albumin (3.5-5.0) g/dL Urine Color Urine Appearance Urine pH (5.0-9.0) Ur Specific [place] (1.005-1.025) Urine Protein (Neg-Trace) mg/dL Urine Glucose (UA) (Negative) mg/dL Urine Ketones (Negative) mg/dL Urine Blood (Negative) Urine Nitrite (Negative) Ur Leukocyte Esterase (Negative) Urine RBC (0-2) /HPF Urine WBC (0-5) /HPF Urine WBC Clumps Ur Squamous Epith Cells (0-2) /HPF Ur Transition Epith Cell Ur Renal Epithelial Cell Calcium Oxalate Crystal Leucine Crystals Cystine Crystals Tyrosine Crystals Other Crystals Urine Bacteria Cancelled (None Seen) Urine Parasites Cancelled Bilirubin Casts Cancelled Epithelial Casts Cancelled Fatty Casts Cancelled Hyaline Casts 0-2 Cancelled (0-2) /LPF Granular Casts Cancelled Waxy Casts Cancelled Broad Casts Cancelled RBC Casts Cancelled WBC Casts Cancelled Other Casts Cancelled Urine Trichomonas Cancelled Urine Yeast Cancelled Independent Interpretation I performed an independent interpretation of an: CT Scan Interpretation: My interpretation is in agreement with the radiologist's impression of this imaging study. - EXAMINATION: CT ABDOMEN AND PELVIS WITHOUT CONTRAST CLINICAL INFORMATION: Flank pain. COMPARISON: None available. TECHNIQUE: Multidetector volumetric imaging was performed from the superior aspect of the liver through the pubic symphysis. Sagittal and coronal reformatted images were obtained on the technologist's workstation. This CT examination was performed using dose optimization techniques as appropriate, variously including the following: *Automated exposure control *Adjustment of mA and/or kV according to patient size (this includes techniques or standardized protocols for targeted exams where dose is matched to indication/reason for exam; i.e. extremities or head) *Use of iterative reconstruction technique DLP: 580 mGy-cm FINDINGS: LUNG BASES: Linear pleural parenchymal scarring is evident in the lingula. LIVER, GALLBLADDER, AND BILIARY TREE: The liver is normal in size, shape, and attenuation. No focal hepatic lesion or biliary ductal dilatation is present. Gallbladder is surgically absent. PANCREAS: Unremarkable. SPLEEN: Unremarkable. ADRENAL GLANDS: Unremarkable. KIDNEYS AND URETERS: There is mild to moderate left hydronephrosis with 2 nonobstructing calculi within calyces in the interpolar region and left lower pole measuring 2 and 3 mm in diameter. There is [id number] associated left hydroureter terminating at the level of the ureteropelvic junction where there is a oblong calculus within the intramural portion of the ureterovesical junction at the bladder wall, measuring 6 x 3 x 3 mm . A punctate adjacent 2 mm calculus is also noted in this region. No additional renal or ureteral calculi are identified. Right kidney is normal. The kidneys are normal in size, shape, and attenuation. Mild to moderate left perinephric fat stranding as well as left periureteral fat stranding. BLADDER: As noted above, there are 2 calculi in the region of the bladder wall at the ureterovesical junction no additional calculi are identified. Bladder is otherwise normal in appearance. GASTROINTESTINAL TRACT: Moderate sigmoid diverticulosis with associated wall thickening, consistent with chronic muscular hypertrophy. Stomach, small bowel, and colon are normal in caliber. No surrounding fat stranding. No intraperitoneal free fluid or free air. Appendix is normal. ABDOMINAL WALL: No significant hernia is appreciated. LYMPH NODES: Normal. VASCULAR: Atherosclerotic calcifications are present in the abdominal aorta and iliac arteries. No aneurysmal dilatation. PELVIC VISCERA: The uterus and adnexa are unremarkable. OSSEOUS STRUCTURES: Moderate severe degenerative spondylosis at L5-S1 with both degenerative disc disease and facet arthropathy. Moderate degenerative disc disease in the lower thoracic spine. No acute fracture or malalignment. Mild osteoarthritis in the hips and SI joints. CT/CT abdomen pelvis wo IV con IMPRESSION: 1. A 6 mm calculus at the left ureterovesical junction produces [id number] left hydroureteronephrosis and perinephric and periureteral fat stranding. 2. Additional nonobstructing calculi in the left kidney. 3. Moderate sigmoid diverticulosis without evidence of acute diverticulitis. Fleischner guidelines were followed. Dictated By: n Signed By: Electronically signed by n 11/13/22 1028 Radiology Impression Discussion of test interpretation with radiology: I have reviewed the radiologist's reading. Prescription Management I considered prescription management with: Pain Medication Critical Care Time Critical Care Time Critical Care Time: Yes Total Critical Care Time: 40 Attestation: I spent 40 minutes of Critical Care Time with this patient. This does not include time spent on separately reported billable procedures. Discharge Plan Discharge Clinical Impression: Kidney stone Patient Disposition: Home, Self-Care Instructions: Kidney Stones (ED) Additional Instructions: Follow up with your primary care provider and a urologist. Return to the emergency department immediately if your symptoms worsen or if you develop any dizziness, shortness of breath, difficulty breathing, chest pain, blurry vision, loss of vision, nausea, vomiting, abdominal pain, fever, chills, back pain, or any other complaints. Prescriptions: New prednisone 20 mg tablet 20 mg PO DAILY 7 Days Qty: 7 0RF tamsulosin 0.4 mg capsule 0.4 mg PO DAILY Qty: 7 0RF naproxen 500 mg tablet 500 mg PO BID 7 Days Qty: 14 0RF No Action aspirin 81 mg tablet,delayed release (DR/EC) 81 mg PO DAILY Qty: 90 3RF atorvastatin 40 mg tablet 40 mg PO DAILY Qty: 90 1RF albuterol sulfate [Ventolin HFA] 90 mcg/actuation HFA aerosol inhaler 2 puff inhalation Q6H PRN (Reason: for wheezing) Qty: 18 2RF Januvia 100 mg tablet 100 mg PO DAILY 30 Days Qty: 30 3RF metformin 1,000 mg tablet 1,000 mg PO BID Qty: 180 1RF amlodipine 5 mg tablet 5 mg PO DAILY Qty: 90 1RF cholecalciferol (vitamin D3) 50 mcg (2,000 unit) capsule 50 mcg PO DAILY 90 Days Qty: 90 3RF lisinopril 20 mg tablet 20 mg PO DAILY Qty: 90 0RF ibuprofen 600 mg tablet 600 mg PO Q8H PRN (Reason: pain) Qty: 14 0RF Referrals: Todd Candelaria MD [Primary Care Provider] - Matt Nolen MD [Physician] - (Call to establish and follow up with a Urologist.) Interventions: ED Discharge Assessment Last Done: 11/13/22 11:27 Discharge Date/Time: 11/13/22 11:28 Print Language: [place]
[2022-11-13 08:32] VITALS: BP 143/74; PULSE 98; RESP 17; TEMP 36.4; O2SAT 98; BMI 29.7
[2022-11-13 08:46] LABS: MANUAL DIFF FLAG NO
[2022-11-13 08:47] LABS: Basophils Absolute Auto 0.1 X10*3/uL (0.0-0.2); Basophils Percent Auto 0.5 % (0-2); Eosinophils Percent Auto 0.3 % (0-4); Hemoglobin 13.8 g/dl (12.0-16.0); Imm Gran Abs Auto 0.06 X10*3/uL (0.00-0.03); Imm Gran Pct Auto 0.4 % (0.0-0.4); Lymphocytes Absolute Auto 1.3 X10*3/uL (1.2-4.9); Lymphocytes Percent Auto 8.7 % (20-40); Mean Corpuscular HGB Conc 33.7 g/dl (31.0-35.0); Mean Corpuscular Hemoglobin 32.4 pg (27.0-33.0); Mean Corpuscular Volume 96.2 fL (80.0-98.0); Mean Platelet Volume 8.8 fL (9.4-12.3); Monocytes Absolute Auto 0.8 X10*3/uL (0.1-1.2); Monocytes Percent Auto 5.5 % (2-11); Neutrophils Absolute Auto 12.8 x10*3/uL (2.0-8.3); Neutrophils Percent Auto 84.6 % (45-73); Platelet Count 362 X10*3/uL (160-400); Red Blood Count 4.26 X10*6/uL (4.20-5.50); White Blood Count 15.1 X10*3/uL (4.8-10.8)
[2022-11-13 09:07] LABS: Alanine Aminotransferase 27 U/L (0-31); Albumin Level 4.4 g/dL (3.5-5.0); Alkaline Phosphatase 87 U/L (39-117); Anion Gap 19 (12-20); Aspartate Amino Transferase 28 U/L (5-31); Bilirubin Total 0.6 mg/dL (0.0-1.0); Blood Urea Nitrogen 11 mg/dL (9-16); Calcium 9.9 mg/dL (8.4-10.2); Carbon Dioxide 18 mmol/L (22-29); Chloride 106 mmol/L (96-108); Creatinine Clr Calc Pharmacy 71.3; Estimated Glomerular Filt Rate > 60; Glucose Random 224 mg/dL (60-115); Potassium 3.9 mmol/L (3.3-5.1); Sodium 139 mmol/L (135-145); Total Protein 7.5 g/dL (6.5-8.0)
[2022-11-13 09:08] LABS: Bacteria Urine None Seen (None Seen); Calcium Oxalate Crystals Urine Present; Hyaline Casts Urine 0-2 /LPF (0-2); RBC Urine >20 /HPF (0-2); Squamous Epithelial Cell Urine 0-2 /HPF (0-2)
[2022-11-13 09:10] LABS: Appearance Urine Hazy; Color Urine Dark Yellow; Glucose Urine UA >=1000 mg/dL (Negative); Specific Gravity - Urine 1.025 (1.005-1.025); Urine Blood Large (3+) (Negative)
[2022-11-13 09:11] LABS: Leukocyte Esterase Urine Moderate (2+) (Negative); Nitrite Urine Negative (Negative); UACC Culture Trigger YES; UMIC TRIGGER UACC YES; Urine Ketones Negative (Negative); Urine Protein 100 (2+) mg/dL (Neg-Trace)
[2022-11-13] MEDS: 0.9 % Sodium Chloride 1,000 ML 999 ML IV (09:15)
[2022-11-13] MEDS: Ketorolac Tromethamine 15 MG/ML VIAL IVPUSH (09:25)
[2022-11-13 09:29] LABS: Lactic Acid 1.5 mmol/L (0.5-2.0)
== END 2022-11-13 11:28 | disposition home or self-care (01) ==
PROVIDERS: Physician Assistant Medical; Emergency Provider Emergency Medicine; PCP Internal Medicine
DX: N13.2 Hydronephrosis with renal and ureteral calculous obstruction (principal); R10.9 Unspecified abdominal pain; E11.9 Type 2 diabetes mellitus without complications; I10 Essential (primary) hypertension; E78.00 Pure hypercholesterolemia, unspecified; Z79.82 Long term (current) use of aspirin; Z79.899 Other long term (current) drug therapy; Z79.84 Long term (current) use of oral hypoglycemic drugs
CPT/HCPCS: 36415; 74176; 80053; 81001; 83605; 85025; 87040; 87086; 96374; 99284; J1885

== ENCOUNTER 2022-11-27 13:17 | Emergency (ER) | payer OTHER, SELFPAY ==
--- NOTE | ~2022-11-27 | XR_ITS ---
EXAMINATION: XR KNEE, RIGHT CLINICAL INFORMATION: Pain. Fall. COMPARISON: None available. TECHNIQUE: Four views of the right knee. FINDINGS: The tricompartment joint space is maintained normal. No visible acute fracture, dislocation or subluxation seen. No loose bodies or bony erosive changes seen. No suprapatellar joint effusion seen. XR/XR knee RT 3V IMPRESSION: Unremarkable right knee exam.
[2022-11-27 13:21] VITALS: BP 126/70; PULSE 80; RESP 18; TEMP 36.6; O2SAT 98; BMI 31.0
--- NOTE | 2022-11-27 13:22 | ED.FALL ---
HPI - Fall General Chief Complaint: Extremity Injury, Lower Stated Complaint: r knee inj fall Time Seen by Provider: 11/27/22 13:36 Source: patient Mode of arrival: ambulatory Limitations: no limitations History of Present Illness HPI Narrative: Patient is a 57-year-old female presenting to the emergency department complain of right knee pain after falling on to her knee yesterday after twisting her left ankle. Patient states that she fell directly onto concrete. Reports that she has pain with range of motion is unable to fully flex her right knee. Has not taken any vpsg-[id number] medications for her pain. Also reports mild abrasion/ecchymosis. Reports prior injury to same knee. Denies any numbness or tingling to leg. Denies head strike or loss of consciousness. MD complaint: other (Right knee pain) Onset (ago): day(s) Fall from: standing Fall witnessed: no Place fall occurred: home Loss of consciousness: none Prolonged down time: no Symptoms prior to fall: none Context: other (Twisted ankle) Location of injury - extremities: right: knee Severity: moderate Quality: aching Related Data Previous Rx's Medication Instructions Recorded ibuprofen 600 mg tablet 600 mg PO Q8H PRN pain #14 tabs 04/02/21 aspirin 81 mg tablet,delayed 81 mg PO DAILY #90 tabs 12/14/21 release albuterol sulfate 90 mcg/actuation 2 puff inhalation Q6H PRN for 07/11/22 aerosol inhaler (Ventolin HFA) wheezing #18 ea sitagliptin phosphate 100 mg 100 mg PO DAILY 30 days #30 tabs 08/16/22 tablet (Januvia) amlodipine 5 mg tablet 5 mg PO DAILY #90 tabs 09/07/22 metformin 1,000 mg tablet 1,000 mg PO BID #180 tabs 09/07/22 cholecalciferol (vitamin D3) 50 50 mcg PO DAILY 90 days #90 caps 09/08/22 mcg (2,000 unit) capsule lisinopril 20 mg tablet 20 mg PO DAILY #90 tabs 09/25/22 naproxen 500 mg tablet 500 mg PO BID 7 days #14 tabs 11/13/22 prednisone 20 mg tablet 20 mg PO DAILY 7 days #7 tabs 11/13/22 tamsulosin 0.4 mg capsule 0.4 mg PO DAILY #7 caps 11/13/22 atorvastatin 40 mg tablet 40 mg PO DAILY #90 tabs 11/22/22 Allergies Allergy/AdvReac Type Severity Reaction Status Date / Time No Known Allergies Allergy Verified 06/30/22 14:19 Review of Systems Review of Systems: As per HPI. 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 Sister No problems noted. Son No problems noted. Social History Social History Housing: Apartment Alcohol intake: current Alcohol intake frequency: holidays/special occasions only Patient Tobacco Use Status: Never used Tobacco Tobacco use type: Cigarette e-Cigarette/Vaping Use: Never Used Second Hand Smoke Exposure: No Substance Use Type: Marijuana Advance Directives: No Advance Directives Information Provided: No service: No Current occupational status: employed Cognitive needs: No Hearing needs: No Vision needs: No Physical Exam Vital Signs: Vital Signs: Last Vital Signs Temp 97.9 F 11/27/22 13:21 Pulse 80 11/27/22 13:21 Resp 18 11/27/22 13:21 BP 126/70 11/27/22 13:21 Pulse Ox 98 11/27/22 13:21 O2 Del Method Room Air 11/27/22 13:21 BMI result Body Mass Index 31.0 Vital signs have been reviewed and appear to be correct. Blood pressure normal. Heart rate normal. Respiratory rate normal. Temperature normal. Oxygen saturation normal. Const: General: cooperative, healthy appearing and no acute distress Orientation/consciousness: oriented to person, oriented to place, oriented to time and patient oriented x3 Limitations: no limitations HEENT: Head: Yes normocephalic and Yes atraumatic Ears: external ears normal General nose exam: Normal external nose present Face and sinus: Yes face symmetric Mouth: oropharynx normal and moist mucous membranes Throat: Yes uvula midline Eyes: Pupils: Equal, round and reactive pupils present Neck: Neck: Yes normal visual inspection and Yes supple Resp: Effort & Inspection: normal respiratory effort and able to speak in complete sentences Auscultation: clear to auscultation bilaterally Cardio: Rate: regular rate Rhythm: regular rhythm Heart sounds: S1 normal heart sound present and S2 normal heart sound present GI: Palpation (GI): Soft to palpation and nontender Auscultation: normoactive bowel sounds : General: Yes no CVA tenderness Back/Spine/Pelvis: Back: no CVA tenderness Skin: General skin exam: elasticity normal and turgor normal Neuro: General: oriented to person, oriented to place, oriented to time, patient oriented x3, moves all extremities, no focal motor deficits and CN's II-XI intact bilaterally Cranial nerves: Yes Equal, round and reactive pupils present Cognition (Neuro): normal cognition Extrem: General: Yes full ROM, Yes no pedal edema and Yes no calf tenderness Right lower extremity: knee Details: tenderness Location: of the infrapatellar area, abnormal ROM Details: with range as follows (Able to fully extend knee, unable to fully flex knee), knee ligament exam normal, abrasion knee anterior Details: single and ecchymosis knee anterior ; no swelling, no crepitus, no deformity and no unusual warmth Psych: Mental Status: mental status grossly normal Affect: normal affect Thought process: Normal thought process present Course Course Course Narrative: This is a rapid medical exam. Deferred additional HPI, ROS, PE to primary provider. 57 yo female with history of DM, HTN. HLD here with right knee pain after she fell yesterday. Her left ankle twisted and she fell landing on the right knee. Now pain/swelling in right knee. Denies hitting head or LOC. WIll obtain x-rays of knee VSS Medical Decision Making Medical Decision Making MDM Narrative: Patient is a 57-year-old female presenting to the emergency department complain of right knee pain after falling on to her knee yesterday after twisting her left ankle. On exam patient is awake, A+Ox3, VS WNL, afebrile, normal neurological exam without focal deficits, physical exam findings as above. Given reported symptoms and physical exam findings, initial differential includes contusion, strain, sprain, fracture. X-ray notable for unremarkable right knee. My interpretation is in agreement with the radiologist's interpretation. With results discussed with patient all questions answered. Advised patient to apply ice intermittently throughout the day, Tylenol/ibuprofen as needed for discomfort. Will refer to ortho for any ongoing concerns. Return precautions discussed at bedside. Patient verbalized understanding of and agreement with plan. Differential Diagnosis Differential Diagnoses: The differential diagnosis associated with the presentation includes As per MDM Independent Interpretation I performed an independent interpretation of an: Plain X-Ray Interpretation: No acute abnormalities Radiology Impression Discussion of test interpretation with radiology: I have reviewed the radiologist's reading. Radiologist Impression: XR/XR knee RT 3V IMPRESSION: Unremarkable right knee exam. External Record Review External record reviewed: Inpatient record, Office record and Outpatient record Discharge Plan Discharge Clinical Impression: Contusion of knee, right Qualifiers: Encounter type: initial encounter Qualified Code(s): S80.01XA - Contusion of right knee, initial encounter Patient Disposition: Home, Self-Care Instructions: Contusion in Adults (ED) Additional Instructions: You have been evaluated in the emergency department today for knee pain. Your evaluation did not find evidence of medical conditions requiring emergent intervention at this time. Please rest, ice, and elevate your knee, and resume normal activities as tolerated. We recommend you take 600mg ibuprofen every 6 hours or 650mg Tylenol every 6 hours as needed for pain. If needed you can alternate these medications as they take 1 medication every 3 hours. For instance at noon take ibuprofen, then at 3:00 p.m. take Tylenol, then at 6:00 p.m. take ibuprofen. Please schedule an appointment for follow-up with your primary care provider this week. Return to the emergency department if you experience worsening pain, numbness, tingling, change of color in your knee, or any other concerning symptoms. If symptoms persist beyond the next 1-2 weeks you can follow-up with orthopedics. Prescriptions: No Action aspirin 81 mg tablet,delayed release (DR/EC) 81 mg PO DAILY Qty: 90 3RF albuterol sulfate [Ventolin HFA] 90 mcg/actuation HFA aerosol inhaler 2 puff inhalation Q6H PRN (Reason: for wheezing) Qty: 18 2RF Januvia 100 mg tablet 100 mg PO DAILY 30 Days Qty: 30 3RF metformin 1,000 mg tablet 1,000 mg PO BID Qty: 180 1RF amlodipine 5 mg tablet 5 mg PO DAILY Qty: 90 1RF cholecalciferol (vitamin D3) 50 mcg (2,000 unit) capsule 50 mcg PO DAILY 90 Days Qty: 90 3RF lisinopril 20 mg tablet 20 mg PO DAILY Qty: 90 0RF atorvastatin 40 mg tablet 40 mg PO DAILY Qty: 90 1RF prednisone 20 mg tablet 20 mg PO DAILY 7 Days Qty: 7 0RF tamsulosin 0.4 mg capsule 0.4 mg PO DAILY Qty: 7 0RF naproxen 500 mg tablet 500 mg PO BID 7 Days Qty: 14 0RF ibuprofen 600 mg tablet 600 mg PO Q8H PRN (Reason: pain) Qty: 14 0RF Ref[place]: [facility] [place] [Provider Group]
--- NOTE | 2022-11-27 13:26 | PC.NURSE ---
PT REFUSED A W/C X 3.
== END 2022-11-27 14:44 | disposition home or self-care (01) ==
PROVIDERS: Emergency Provider Emergency Medicine; PCP Internal Medicine
DX: S80.01XA Contusion of right knee, initial encounter (principal); W18.30XA Fall on same level, unspecified, initial encounter; Y93.9 Activity, unspecified; Y92.9 Unspecified place or not applicable; Y99.9 Unspecified external cause status; M25.561 Pain in right knee
CPT/HCPCS: 73562; 99282; 99283

== ENCOUNTER 2022-12-16 09:58 | Outpatient (AMB) | payer OTHER, SELFPAY ==
--- NOTE | 2022-12-16 10:17 | A.OFFVIS_ITS ---
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 12/16/2022? She is present today for an evaluation of nephrolithiasis. She was seen in ER on 11/13/2022 for left flank pain. The patient was advised to follow-up with her PCP and a urologist during that time. she was prescribed Prednisone 20 mg, tamsulosin 0.4 mg, and Naproxen 500 mg during that time. She has a past medical history significant for diabetes, and hypertension. Patient takes Aspirin 81 mg daily. She presented to ED on 11/13/2022 for left flank pain. She states that she had passed a stone at home and has seen it in the toilet. She denies any left flank pain currently. I reviewed the CAT scan of the abdomen results from 11/13/2022 revealed a 6 mm stone at the left ureter vesicle junction with mild to moderate hydronephrosis, in additions small renal calculi in the left kidney measuring 2 mm and 3 mm. No stones visualized in the right kidney. I discussed the importance of hydrating 48 to 64 ounces of water as well as low sodium and low oxalate diet. Plan: Metabolic work up. Ordered 24-hour urine collection test. Blood test for calcium and PTH hormone level. Ordered renal US to follow-up on left hydronephrosis. 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 Sister No problems noted. Son No problems noted. Social History Housing: Apartment Alcohol intake: current Alcohol intake frequency: holidays/special occasions only Patient Tobacco Use Status: Never used Tobacco Tobacco use type: Cigarette e-Cigarette/Vaping Use: Never Used Second Hand Smoke Exposure: No Substance Use Type: Marijuana service: No Current occupational status: employed Cognitive needs: No Hearing needs: No Vision needs: No Review of Systems Const All systems reviewed & are unremarkable except as noted in HPI and below Reports no additional complaints Eyes Reports no additional complaints ENT Reports no additional complaints Card Denies dyspnea Resp Denies cough and Denies dyspnea GI Reports no additional complaints Reports no additional complaints Musc Reports no additional complaints Skin/Breast Denies rash and Denies unusual bruising Neuro Reports no additional complaints Psych Reports no additional complaints Endo Reports no additional complaints Ed/Lymph Reports no additional complaints Aller/Immun Reports no additional complaints Physical Exam Const General: cooperative, healthy appearing and no acute distress Orientation/consciousness: patient oriented x3 HEENT Head: Yes normal to inspection, Yes normocephalic and Yes atraumatic Eyes Conjunctivae: conjunctivae normal Neck Neck: Yes normal visual inspection and Yes trachea midline Chest Chest palpation & inspection: normal inspection of the chest Resp Effort & Inspection: normal respiratory effort Cardio Rate: regular rate GI Inspection: Yes normal to inspection Skin General skin exam: no rashes or lesions noted Neuro General: patient oriented x3 Extrem General: No edema Psych Appearance: grossly normal Results AMB Urinalysis, Automated UA Leukoctes 15 Shanell/uL Last Edit by LUIS ENRIQUE Kumar on 12/16/22 10:36 UA Nitrite Negative Last Edit by Kyle Rodriguez Tera on 12/16/22 10:36 UA Urobilinogen 0.2 mg/dL Last Edit by Kyle Rodriguez [facility] on 12/16/22 10:3 6 UA Protein 15 mg/dL Last Edit by Kyle Rodriguez A on 12/16/22 10:36 UA pH 5.0 Last Edit by Kyle Rodriguez [facility] on 12/16/22 10:36 UA Blood 25 Leon/uL Last Edit by Kyle Rodriguez [facility] on 12/16/22 10:36 1+ Kyle Rodriguez 12/16/22 10:36 UA Specific [place] 1.030 Last Edit by Kyle Rodriguez Tera on 12/16/22 10: 36 UA Ketone Negative Last Edit by Kyle Rodriguez [facility] on 12/16/22 10:36 UA Bilirubin 0 mg/dL Last Edit by Kyle Rodriguez [facility] on 12/16/22 10:36 UA Glucose 0 mg/dL Last Edit by Kyle Rodriguez [facility] on 12/16/22 10:36 Results Reviewed Results Reviewed: Laboratory Last Values Urine pH (Auto) 5.0 12/16/22 10:25 Specific [place] (Auto) 1.030 12/16/22 10:25 Urine Protein (Auto) 15 mg/dL 12/16/22 10:25 Glucose (UA)(Auto) 0 mg/dL 12/16/22 10:25 Urine Ketones (Auto) Negative 12/16/22 10:25 Urine Blood (Auto) 25 Leon/uL 12/16/22 10:25 Urine Nitrite (Auto) Negative 12/16/22 10:25 Urine Bilirubin (Auto) 0 mg/dL 12/16/22 10:25 Urine Urobilinogen (Auto) 0.2 mg/dL 12/16/22 10:25 Leukocyte Esterase (Auto) 15 Shanell/uL 12/16/22 10:25 Date of Service: 11/13/22 EXAMINATION: CT ABDOMEN AND PELVIS WITHOUT CONTRAST CLINICAL INFORMATION: Flank pain. COMPARISON: None available. FINDINGS: LUNG BASES: Linear pleural parenchymal scarring is evident in the lingula. LIVER, GALLBLADDER, AND BILIARY TREE: The liver is normal in size, shape, and attenuation. No focal hepatic lesion or biliary ductal dilatation is present. Gallbladder is surgically absent. PANCREAS: Unremarkable. SPLEEN: Unremarkable. ADRENAL GLANDS: Unremarkable. KIDNEYS AND URETERS: There is mild to moderate left hydronephrosis with 2 nonobstructing calculi within calyces in the interpolar region and left lower pole measuring 2 and 3 mm in diameter. There is [id number] associated left hydroureter terminating at the level of the ureteropelvic junction where there is a oblong calculus within the intramural portion of the ureterovesical junction at the bladder wall, measuring 6 x 3 x 3 mm . A punctate adjacent 2 mm calculus is also noted in this region. No additional renal or ureteral calculi are identified. Right kidney is normal. The kidneys are normal in size, shape, and attenuation. Mild to moderate left perinephric fat stranding as well as left periureteral fat stranding. BLADDER: As noted above, there are 2 calculi in the region of the bladder wall at the ureterovesical junction no additional calculi are identified. Bladder is otherwise normal in appearance. GASTROINTESTINAL TRACT: Moderate sigmoid diverticulosis with associated wall thickening, consistent with chronic muscular hypertrophy. Stomach, small bowel, and colon are normal in caliber. No surrounding fat stranding. No intraperitoneal free fluid or free air. Appendix is normal. ABDOMINAL WALL: No significant hernia is appreciated. LYMPH NODES: Normal. VASCULAR: Atherosclerotic calcifications are present in the abdominal aorta and iliac arteries. No aneurysmal dilatation. PELVIC VISCERA: The uterus and adnexa are unremarkable. OSSEOUS STRUCTURES: Moderate severe degenerative spondylosis at L5-S1 with both degenerative disc disease and facet arthropathy. Moderate degenerative disc disease in the lower thoracic spine. No acute fracture or malalignment. Mild osteoarthritis in the hips and SI joints. IMPRESSION: 1. A 6 mm calculus at the left ureterovesical junction produces gdse-[id number] left hydroureteronephrosis and perinephric and periureteral fat stranding. 2. Additional nonobstructing calculi in the left kidney. 3. Moderate sigmoid diverticulosis without evidence of acute diverticulitis. Assessment & Plan Assessment & Plan (1) Kidney stone: Code(s): N20.0 - Calculus of kidney (2) Calculus of distal left ureter: Code(s): N20.1 - Calculus of ureter (3) Hydronephrosis, left: Code(s): N13.30 - Unspecified hydronephrosis (4) Kidney stone on left side: Code(s): N20.0 - Calculus of kidney Plan Metabolic work up. Ordered 24-hour urine collection test. Blood test for calcium and PTH hormone level. Ordered renal US to follow-up on left hydronephrosis. Orders: Orders AMB Urinalysis Automated 12/16/22 Z13.9 - Encounter for screening, unspecified US retroperitoneal comp 12/16/22 N13.30 - Unspecified hydronephrosis, N20.0 - Calculus of kidney, N20.1 - Calculus of ureter Calcium 12/16/22 N20.0 - Calculus of kidney Parathyroid Hormone Related Pr 12/16/22 N20.0 - Calculus of kidney Patient Instructions: The patient had an opportunity to ask questions regarding treatment plan. All questions were answered. Imaging, Laboratory studies and physical exam results were discussed and reviewed in detail. No major barriers to understanding were identified. The patient expressed understanding and agreement with the above treatment plan. The patient is aware they should contact our office by phone for worsening of their current condition or the appearance of new symptoms. Compliance is encouraged with any medications and followup testing that is ordered. It is a privilege to be allowed the opportunity to participate in the urologic care of your patient. If you have any questions or concerns regarding treatment for the above conditions please do not hesitate to contact me. The office telephone contact is [phone]. This note is constructed in part using voice recognition software. While every effort has been made to ensure accuracy store standards associate errors may have been included. Yours sincerely, Ranjit Mendieta MD Coding Level of Care Code New Pt Level 4 (71081) Diagnoses Kidney stone N20.0 Calculus of distal left ureter N20.1 Hydronephrosis, left N13.30 Kidney stone on left side N20.0
== END 2022-12-16 11:03 | disposition home or self-care (01) ==
PROVIDERS: PCP Internal Medicine; Visit Provider Urology
DX: N20.0 Calculus of kidney (principal); N20.1 Calculus of ureter; N13.30 Unspecified hydronephrosis
CPT/HCPCS: 99204

== ENCOUNTER → 2022-12-16 09:58 | Outpatient (BNVA) | payer OTHER, SELFPAY | PROVIDERS: PCP Internal Medicine; Visit Provider Urology | DX: N20.0 Calculus of kidney (principal); N20.1 Calculus of ureter; N13.30 Unspecified hydronephrosis | CPT/HCPCS: 81003; 99202 ==

== ENCOUNTER 2022-12-24 07:45 | Outpatient (AMB) | payer OTHER, SELFPAY ==
[2022-12-24 08:14] VITALS: BMI 30.9
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
== END 2022-12-24 08:45 | disposition home or self-care (01) ==
PROVIDERS: PCP Internal Medicine; Visit Provider Physician Assistant
DX: S80.01XA Contusion of right knee, initial encounter (principal)
CPT/HCPCS: 99213

== ENCOUNTER 2022-12-24 16:35 | Outpatient (REF) | payer OTHER, SELFPAY ==
--- NOTE | ~2022-12-24 | XR_ITS ---
EXAMINATION: XR KNEE AP STANDING CLINICAL INFORMATION: Pain COMPARISON: None available. TECHNIQUE: AP bilateral standing view of the knees was obtained, sunrise right knee FINDINGS: The right knee joint is higher than the left. No significant knee joint space narrowings bilaterally. Mild right patellofemoral narrowing. No fracture or dislocation. Right vascular calcifications. XR/XR knee RT 1V IMPRESSION: No acute bony pathology.
--- NOTE | ~2022-12-24 | XR_ITS ---
EXAMINATION: XR KNEE AP STANDING CLINICAL INFORMATION: Pain COMPARISON: None available. TECHNIQUE: AP bilateral standing view of the knees was obtained, sunrise right knee FINDINGS: The right knee joint is higher than the left. No significant knee joint space narrowings bilaterally. Mild right patellofemoral narrowing. No fracture or dislocation. Right vascular calcifications. XR/XR knee standing BI IMPRESSION: No acute bony pathology.
== END 2022-12-24 16:36 | disposition home or self-care (01) ==
LOC: HO.HOSX 16:35
PROVIDERS: Visit Provider Physician Assistant
DX: S80.01XD Contusion of right knee, subsequent encounter (principal); W19.XXXD Unspecified fall, subsequent encounter
CPT/HCPCS: 73560; 73565; 99212

== ENCOUNTER 2023-01-19 14:41 | Outpatient (AMB) | payer OTHER, SELFPAY ==
[2023-01-19 14:43] VITALS: BP 140/90; PULSE 83; O2SAT 98; BMI 29.8
--- NOTE | 2023-01-19 14:43 | MHC.PC.OV ---
Vital Signs 01/19/23 14:43 Height 5 ft 2 in Weight 163 lb BMI 29.8 BP 140/90 H Blood Pressure Location Lt brachial Position Sitting Pulse 83 Pulse Source Pulse Oximeter Pulse Oximetry (%) 98 Oxygen Delivery Method Room Air Intake Visit Reasons: 4 month f/u Hand Method Lasting Machine Operator Required: No Accompanied by: Self / Same As Patient Allergies No Known Allergies Allergy (Verified 01/19/23 15:50) Medication List - Last Reconciled 01/19/23 by Todd Candelaria MD albuterol sulfate 90 mcg/actuation (Ventolin HFA) 2 puffs inhalation Q6H PRN amlodipine 5 mg PO DAILY aspirin 81 mg PO DAILY atorvastatin 40 mg PO DAILY cholecalciferol (vitamin D3) 50 mcg PO DAILY 90 days ibuprofen 600 mg PO Q8H PRN lisinopril 20 mg PO DAILY metformin 1,000 mg PO BID sitagliptin phosphate (Januvia) 100 mg PO DAILY 90 days Tobacco use date assessed: 01/19/23 Dental Screening Dental Screen Date: 01/19/23 Did you have a dental visit in the last 12 months?: No Did you have a dental problem in the last 6 months where you did not have access to dental care?: No Was dental information given to patient?: No HPI 4 month f/u HPI Details Patient comes in today for her follow up visit States that she currently feels okay Went to the ER at the end of October 2022 for increased left flank pain - work ups done revealed (+) kidney stone, which she thinks that she has passed out since She was seen by urology for follow up a few weeks ago and is scheduled for a repeat renal US for follow up next month on 03/04/2023 She currently denies any headaches or dizziness; denies any fever or chills Denies any chest pains, no SOB No nausea/vomiting, no abdominal pain No change in bowel habits noted Needs a couple of her Rx refilled Would like to know how her labs done back in October 2022 came out - she reportedly missed her appt back then and was rescheduled to today [facility] Medical History (Updated 01/24/23 @ 04:52 by Todd Candelaria MD) Overweight (BMI 25.0-29.9) Asthma Bunion, right foot Fracture of phalanx of toe of left foot Muscle spasm of back Lumbar radiculitis Myalgia Arthralgia Left elbow pain Headache Neck pain Low back pain Right knee pain Screening for osteoporosis Vitamin D deficiency Cervical spondylosis 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 Sister No problems noted. Son No problems noted. Social History Housing: Apartment Alcohol intake: current Alcohol intake frequency: holidays/special occasions only Patient Tobacco Use Status: Never used Tobacco Tobacco use type: Cigarette e-Cigarette/Vaping Use: Never Used Second Hand Smoke Exposure: No Substance Use Type: Marijuana service: No Current occupational status: employed Cognitive needs: No Hearing needs: No Vision needs: No Questionnaire PHQ-9 Over the last 2 weeks, how often have you been bothered by any of the following problems? 1. Little interest or pleasure in doing things: not at all 2. Feeling down, depressed, or hopeless: not at all 3. Trouble falling or staying asleep, or sleeping too much: not at all 4. Feeling tired or having little energy: not at all 5. Poor appetite or overeating: not at all 6. Feeling bad about yourself - or that you are a failure or have let yourself or your family down: not at all 7. Trouble concentrating on things, such as reading the newspaper or watching television: not at all 8. Moving or speaking so slowly that other people could have noticed. Or the opposite - being so fidgety or restless that you have been moving around a lot more than usual: not at all 9. Thoughts that you would be better off or of hurting yourself in some way: not at all Total score: 0 Depression Screening Interpretation: Negative Depression Screening Done: Yes 45259 - PHQ-9 Billing: Yes Source: Developed by Drs. August Escobar, Sherrie Diaz, Michael Son and colleagues, with an educational silvia from [employer] Thrive Questionnaire Date Thrive assessed: 01/19/23 I am a: Patient What is your living situation today?: I have a steady place to live Within the past 12 months, did the food you bought not last and you didn't have the money to get more?: Never true Within the past 12 months, did you worry whether your food would run out before you got money to buy more?: Never true Do you have trouble paying for medicines?: No Do you have trouble getting transportation to medical appointments?: No Do you have trouble paying your heating and electricity bill?: No Do you have trouble taking care of your child, family member or friend?: No Do you have trouble with day-to-day activities such as bathing, preparing meals, shopping, managing finances, etc.?: No Are you currently unemployed and looking for a job?: No Are you interested in more education?: No Please select the resources that you would like help with: Utilities Currently or been in a relationship where the following occur: no concerns reported AUDIT C Alcohol Use Questionnaire (AUDIT-C) 1. How often do you have a drink containing alcohol?: Never 3. How often do you have six or more drinks on one occasion?: Never Total Score: 0 Score Reviewed/Action Taken: Yes JOI-7 AMB Questionnaire JOI-7 Date JOI - 7 assessed: 01/19/23 Feeling nervous, anxious, or on edge: 0 = Not at all Not being able to stop or control worryin = Not at all Worrying too much about different things: 0 = Not at all Trouble relaxin = Not at all Being so restless that it is hard to sit still: 0 = Not at all Becoming easily annoyed or irritable: 0 = Not at all Feeling afraid as if something awful might happen: 0 = Not at all Total JOI-7 score (0-4 normal; 5-9 mild; 10-14 moderate; 15-21 severe): 0 Source: Developed by Drs. August Escobar, Sherrie Diaz, Michael Son and colleagues, with an educational silvia from [employer] Review of Systems Const Denies chills, Denies fatigue, Denies fever(s) and Denies headache(s) ENT Denies dysphagia, Denies dizziness, Denies otalgia, Denies headache(s), Reports neck pain, Denies odynophagia and Denies sore throat Card Denies chest pain, Denies palpitations and Denies dyspnea Resp Denies cough and Denies dyspnea GI Denies abdominal pain, Denies constipation, Denies dysphagia, Denies heartburn, Denies diarrhea, Denies nausea, Denies odynophagia and Denies vomiting Denies difficulty voiding, Denies nocturia, Denies dysuria and Denies urinary urgency Musc Reports back pain, Reports arthralgias (over both knees) and Reports neck pain Skin/Breast Denies rash Neuro Denies dizziness and Denies headache(s) Endo Denies fatigue and Denies palpitations Physical exam (Primary Care) Vital Signs: Last Vital Signs Pulse 83 01/19/23 14:43 BP 140/90 H 01/19/23 14:43 Pulse Ox 98 01/19/23 14:43 Oxygen Delivery Method Room Air 01/19/23 14:43 BMI result Body Mass Index 29.8 Tobacco/Smoking Status: Tobacco use Status Tobacco use date assessed 01/19/23 01/19/23 14:44 Patient Tobacco Use Status Never used Tobacco 01/19/23 14:44 Tobacco use type Cigarette 01/19/23 14:44 e-Cigarette/Vaping Use Never Used 01/19/23 14:44 PHQ-9: PHQ-9 Score PHQ-9: Total score 0 01/19/23 15:47 Depression Screening Interpretation: Negative Thrive Assessment: Date of Thrive Assessment Date Thrive assessed 01/19/23 01/19/23 14:44 Currently or been in a relationship where the following occur: no concerns reported Const General: no acute distress and alert HENMT Ears: TM's normal bilaterally and EAC's normal Throat: Yes posterior oropharynx normal and Yes tonsils normal (no TP congestion) Neck Neck: Yes no lymphadenopathy and Yes tender Resp Auscultation: clear to auscultation bilaterally, no rales and no wheezes Cardio Rate: regular rate Rhythm: regular rhythm Heart sounds: no murmurs GI Palpation (GI): Soft to palpation and nontender Auscultation: normal bowel sounds Back/Spine/Pelvis Cervical Spine: Cervical spine tenderness Thoracic/Lumbar Spine: thoracic spinal tenderness and lumbar spinal tenderness Skin Rashes: no rashes Extrem General: Yes no clubbing, cyanosis or edema Right lower extremity: knee Details: tenderness Left lower extremity: knee Details: tenderness Results Reviewed Results Reviewed: Laboratory Tests 10/27/22 10/27/22 10/27/22 10:08 10:08 10:09 WBC 10.1 Hgb 12.4 Hct 36.9 L Plt Count 345 Sodium 138 Potassium 4.4 Creatinine 0.80 Estimated GFR Fasting Glucose 136 H Hemoglobin A1c % 6.9 H Calcium 9.6 AST 26 ALT 33 H Alkaline Phosphatase 89 Triglycerides 161 H Cholesterol 137 LDL Cholesterol, Calc 46 HDL Cholesterol 59 25-OH Vitamin D Total 29.0 TSH 0.58 Ur Specific [place] 1.020 Urine Protein Negative Urine Glucose (UA) Negative Urine Blood Moderate (2+) H Microalb/Creat Ratio 10.2 10/27/22 10:09 WBC Hgb Hct Plt Count Sodium Potassium Creatinine Estimated GFR > 60 Fasting Glucose Hemoglobin A1c % Calcium AST ALT Alkaline Phosphatase Triglycerides Cholesterol LDL Cholesterol, Calc HDL Cholesterol 25-OH Vitamin D Total TSH Ur Specific [place] Urine Protein Urine Glucose (UA) Urine Blood Microalb/Creat Ratio Assessment and Plan Assessment & Plan (1) Diabetes mellitus: Code(s): E11.9 - Type 2 diabetes mellitus without complications Qualifiers: Diabetes mellitus type: type 2 Diabetes mellitus extermination supervisor insulin use: without extermination supervisor use Diabetes mellitus complication status: with hyperglycemia Qualified Code(s): E11.65 - Type 2 diabetes mellitus with hyperglycemia Plan: HgbA1c was at 6.9% on her labs done back in October 2022 (was at 8.2% a few months ago) - goal is <7.0% Reinforced diabetic diet Continue Metformin 1000 mg BID and Januvia 100 mg QD (2) Pure hypercholesterolemia: Code(s): E78.00 - Pure hypercholesterolemia, unspecified Plan: Results of her labs done a couple of months ago (October 2022) reviewed and discussed with patient Reinforced low cholesterol diet Continue Atorvastatin 40 mg QD Will recheck her labs and fasting lipids in 4 months for follow up (3) Benign essential hypertension: Code(s): I10 - Essential (primary) hypertension Plan: Reinforced low sodium diet - goal is systolic BP of 120 mm or less Continue Lisinopril 20 mg QD and Amlodipine 5 mg QD Patient is reminded to monitor her blood pressure regularly (4) 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: Code(s): M47.815 - Spondylosis without myelopathy or radiculopathy, thoracolumbar region Plan: Reinforced activity and weight-lifting restrictions Lumbar spine MRI done in May 2021 revealed findings of chronic right hemilaminectomy changes and advanced degenerative changes at L5-S1 resulting in moderate to severe bilateral foraminal stenosis with mass effect on the exiting L5 nerve roots bilaterally Was following up with pain management previously but she declined offer for injection Tx; plans to just call physical therapy for her lower back (and neck) pain when needed for now (5) Cervical spondylosis: Code(s): M47.812 - Spondylosis without myelopathy or radiculopathy, cervical region Plan: Cervical spine x-rays done last year showed (+) findings of cervical spondylosis Cervical spine MRI done in December 2021 revealed multilevel cervical spondylosis as described above without significant spinal canal stenosis, cord compression, or cord signal abnormality. There is mild to moderate left neural foraminal narrowing at C3-C4 and C4-C5. Partial fusion of the right C2-C3 and left C3-C4 facet joints with periarticular edema involving the right C2-C3 facet joint Continue Tizanidine 2 mg Q 8 hours PRN Went to physical therapy for her neck a few months ago and would like to continue PT on an as needed basis for now (6) Asthma: Code(s): J45.909 - Unspecified asthma, uncomplicated Qualifiers: Asthma severity: mild Asthma persistence: intermittent Asthma complication type: uncomplicated Qualified Code(s): J45.20 - Mild intermittent asthma, uncomplicated Plan: Controlled lately Continue Albuterol HFA 2 inhalations Q 6 hours PRN (7) Vitamin D deficiency: Code(s): E55.9 - Vitamin D deficiency, unspecified Plan: Continue Vitamin D3 2000 units QD Cautioned that her vitamin D level has dropped off and is now slightly low on her recent labs (8) Overweight (BMI 25.0-29.9): Code(s): E66.3 - Overweight Plan: Reinforced diet/exercise as tolerated/lose weight Plan Follow up in 4 months Orders: Orders Comprehensive [place]. Panel Fast 4 Months E78.00 - Pure hypercholesterolemia, unspecified Lipid Panel 4 Months E78.00 - Pure hypercholesterolemia, unspecified Hemoglobin A1c 4 Months E11.9 - Type 2 diabetes mellitus without complications Complete Blood Count Auto Diff 4 Months I10 - Essential (primary) hypertension Medications: Changed From sitagliptin phosphate (Januvia) 100 mg PO DAILY 30 days 30 tabs 3RF To sitagliptin phosphate (Januvia) 100 mg PO DAILY 90 days 90 tabs 3RF Refilled aspirin 81 mg PO DAILY 90 tabs 3RF Coding Level of Care Code Est Pt Level 4 (21037) Diagnoses Type 2 diabetes mellitus with hyperglycemia, without long-term current use of insulin E11.65 Diabetes mellitus type: type 2 Diabetes mellitus correction insulin use: without correction use Diabetes mellitus complication status: with hyperglycemia Pure hypercholesterolemia E78.00 Benign essential hypertension I10 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
== END 2023-01-19 15:47 | disposition home or self-care (01) ==
PROVIDERS: PCP Internal Medicine; Visit Provider Internal Medicine
DX: E11.65 Type 2 diabetes mellitus with hyperglycemia (principal); E78.00 Pure hypercholesterolemia, unspecified; I10 Essential (primary) hypertension; M47.815 Spondylosis without myelopathy or radiculopathy, thoracolumbar region; M47.812 Spondylosis without myelopathy or radiculopathy, cervical region; J45.20 Mild intermittent asthma, uncomplicated; E55.9 Vitamin D deficiency, unspecified; E66.3 Overweight
CPT/HCPCS: 99214

== ENCOUNTER 2023-03-04 13:57 | Outpatient (REF) | payer OTHER, SELFPAY ==
--- NOTE | ~2023-03-04 | US_ITS ---
EXAMINATION: US RETROPERITONEAL COMPLETE (RENAL) CLINICAL INFORMATION: Unspecified hydronephrosis. Left kidney stone 2 mm and [address], 6 mm stone left UVJ. COMPARISON: CT abdomen and pelvis 11/13/2022. TECHNIQUE: Real-time imaging of the kidneys and bladder. FINDINGS: RIGHT KIDNEY: 11.0 x 4.5 x 6.1 cm (SAG x AP x TRV). The kidney is normal in size, contour, and echogenicity. Renal cortical thickness is normal. No calculi or focal parenchymal lesions. No hydronephrosis. LEFT KIDNEY: 9.3 x 4.1 x 4.3 cm (SAG x AP x TRV). There is heterogeneity within the interpolar region of the left kidney. Renal cortical thickness is normal. No hydronephrosis. BLADDER: Partially distended. Right ureteral jet is demonstrated; left ureteral jet is not clearly identified. Prevoid bladder volume is 118.1 mL. Postvoid bladder volume is 4.7 mL. US/US retroperitoneal comp IMPRESSION: Heterogeneity of the parenchyma interpolar region of the left kidney. Contrast-enhanced CT or MR imaging is recommended for further evaluation.
== END 2023-03-04 13:58 | disposition home or self-care (01) ==
LOC: HO.US 13:57
PROVIDERS: PCP Internal Medicine; Visit Provider Urology
DX: N13.30 Unspecified hydronephrosis (principal); N20.0 Calculus of kidney; N20.1 Calculus of ureter
CPT/HCPCS: 76770

== ENCOUNTER 2023-03-18 13:40 | Outpatient (AMB) | payer OTHER, SELFPAY ==
--- NOTE | 2023-03-18 13:55 | A.OFFVIS_ITS ---
Intake Intake Visit Reasons: 3m/labs/litholink Intake Note: Patient presents today for a follow-up on Nephrolithiasis: Meds- Tamsulosin (Temporary, not taking) Allergies to Antibiotic- No Known Allergies Blood Thinner- Aspirin Family Coach Required: No Accompanied by: Self / Same As Patient Allergies No Known Allergies Allergy (Verified 03/18/23 13:56) HPI HPI Comments History of Present Illness Details Katina is a 57-year-old female who presents today to the office for follow-up for nephrolithiasis. 03/18/23--She is present today to discuss renal US results. 03/04/23--Heterogeneity of the parenchyma interpolar region of the left kidney. Contrast-enhanced CT or MR imaging is recommended for further evaluation. . Review of chart: CTAP- 11/13/2022 revealed a 6 mm stone at the left ureter vesicle junction with mild to moderate hydronephrosis, in additions small renal calculi in the left kidney measuring 2 mm and 3 mm. No stones visualized in the right kidney. Plan: Metabolic work up. 24-hour urine collection test. Blood test for calcium and PTH hormone level. I discussed the importance of hydrating 48 to 64 ounces of water as well as low sodium and low oxalate diet. 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 Sister No problems noted. Son No problems noted. Social History Housing: Apartment Alcohol intake: current Alcohol intake frequency: holidays/special occasions only Patient Tobacco Use Status: Never used Tobacco Tobacco use type: Cigarette e-Cigarette/Vaping Use: Never Used Second Hand Smoke Exposure: No Substance Use Type: Marijuana service: No Current occupational status: employed Cognitive needs: No Hearing needs: No Vision needs: No Results AMB Urinalysis, Automated UA Leukoctes 0 Shanell/uL Last Edit by LUIS ENRIQUE Kumar on 03/18/23 14:31 UA Nitrite Negative Last Edit by LUIS ENRIQUE Kumar on 03/18/23 14:31 UA Urobilinogen 0.2 mg/dL Last Edit by LUIS ENRIQUE Kumar on 03/18/23 14:3 1 UA Protein 15 mg/dL Last Edit by LUIS ENRIQUE Kumar on 03/18/23 14:31 UA pH 5.0 Last Edit by LUIS ENRIQUE Kumar on 03/18/23 14:31 UA Blood 80 Leon/uL Last Edit by LUIS ENRIQUE Kumar on 03/18/23 14:31 2+ Kyle Rodriguez 03/18/23 14:31 UA Specific [place] 1.030 Last Edit by LUIS ENRIQUE Kumar on 03/18/23 14: 31 UA Ketone Positive Last Edit by LUIS ENRIQUE Kumar on 03/18/23 14:31 5 mg/dL Kyle Rodriguez 03/18/23 14:31 UA Bilirubin 0 mg/dL Last Edit by LUIS ENRIQUE Kumar on 03/18/23 14:31 UA Glucose 0 mg/dL Last Edit by LUIS ENRIQUE Kumar on 03/18/23 14:31 Results Reviewed Results Reviewed: Laboratory Last Values Urine pH (Auto) 5.0 03/18/23 13:56 Specific [place] (Auto) 1.030 03/18/23 13:56 Urine Protein (Auto) 15 mg/dL 03/18/23 13:56 Glucose (UA)(Auto) 0 mg/dL 03/18/23 13:56 Urine Ketones (Auto) Positive 03/18/23 13:56 Urine Blood (Auto) 80 Leon/uL 03/18/23 13:56 Urine Nitrite (Auto) Negative 03/18/23 13:56 Urine Bilirubin (Auto) 0 mg/dL 03/18/23 13:56 Urine Urobilinogen (Auto) 0.2 mg/dL 03/18/23 13:56 Leukocyte Esterase (Auto) 0 Shanell/uL 03/18/23 13:56 Date of Service: 03/04/23 EXAMINATION: US RETROPERITONEAL COMPLETE (RENAL) CLINICAL INFORMATION: Unspecified hydronephrosis. Left kidney stone 2 mm and [address], 6 mm stone left UVJ. COMPARISON: CT abdomen and pelvis 11/13/2022. TECHNIQUE: Real-time imaging of the kidneys and bladder. FINDINGS: RIGHT KIDNEY: 11.0 x 4.5 x 6.1 cm (SAG x AP x TRV). The kidney is normal in size, contour, and echogenicity. Renal cortical thickness is normal. No calculi or focal parenchymal lesions. No hydronephrosis. LEFT KIDNEY: 9.3 x 4.1 x 4.3 cm (SAG x AP x TRV). There is heterogeneity within the interpolar region of the left kidney. Renal cortical thickness is normal. No hydronephrosis. BLADDER: Partially distended. Right ureteral jet is demonstrated; left ureteral jet is not clearly identified. Prevoid bladder volume is 118.1 mL. Postvoid bladder volume is 4.7 mL. IMPRESSION: Heterogeneity of the parenchyma interpolar region of the left kidney. Contrast-enhanced CT or MR imaging is recommended for further evaluation. Assessment & Plan Assessment & Plan (1) Abnormal ultrasound: Code(s): R93.89 - Abnormal findings on diagnostic imaging of other specified body structures (2) Abnormal radiologic findings on diagnostic imaging of renal pelvis, ureter, or bladder: Code(s): R93.41 - Abnormal radiologic findings on diagnostic imaging of renal pelvis, ureter, or bladder (3) Kidney stone: Code(s): N20.0 - Calculus of kidney (4) Kidney stone on left side: Code(s): N20.0 - Calculus of kidney Plan Metabolic work up. 24-hour urine collection test. Blood test for calcium and PTH hormone level. I discussed the importance of hydrating 48 to 64 ounces of water as well as low sodium and low oxalate diet. CT renal mass protocol in 3 months Orders: Orders AMB Urinalysis Automated 03/18/23 Z13.9 - Encounter for screening, unspecified CT abdomen wo/w IV con Today R93.41 - Abnormal radiologic findings on diagnostic imaging of renal pelvis, ureter, or bladder, R93.89 - Abnormal findings on diagnostic imaging of other specified body structures Patient Instructions: The patient had an opportunity to ask questions regarding treatment plan. All questions were answered. Imaging, Laboratory studies and physical exam results were discussed and reviewed in detail. No major barriers to understanding were identified. The patient expressed understanding and agreement with the above treatment plan. The patient is aware they should contact our office by phone for worsening of their current condition or the appearance of new symptoms. Compliance is encouraged with any medications and followup testing that is ordered. It is a privilege to be allowed the opportunity to participate in the urologic care of your patient. If you have any questions or concerns regarding treatment for the above conditions please do not hesitate to contact me. The office telephone contact is [phone]. This note is constructed in part using voice recognition software. While every effort has been made to ensure accuracy manager vehicle errors may have been included. Yours sincerely, Ranjit Mendieta MD Coding Level of Care Code Est Pt Level 4 (52409) Diagnoses Abnormal ultrasound R93.89 Abnormal radiologic findings on diagnostic imaging of renal pelvis, ureter, or bladder R93.41 Kidney stone N20.0 Kidney stone on left side N20.0
== END 2023-03-18 14:23 | disposition home or self-care (01) ==
PROVIDERS: PCP Internal Medicine; Visit Provider Urology
DX: R93.89 Abnormal findings on diagnostic imaging of other specified body structures (principal); R93.41 Abnormal radiologic findings on diagnostic imaging of renal pelvis, ureter, or bladder; N20.0 Calculus of kidney
CPT/HCPCS: 99214

== ENCOUNTER → 2023-03-18 13:40 | Outpatient (BNVA) | payer OTHER, SELFPAY | PROVIDERS: PCP Internal Medicine; Visit Provider Urology | DX: R93.89 Abnormal findings on diagnostic imaging of other specified body structures (principal); R93.41 Abnormal radiologic findings on diagnostic imaging of renal pelvis, ureter, or bladder; N20.0 Calculus of kidney | CPT/HCPCS: 81003; 99212 ==

== ENCOUNTER 2023-05-25 07:41 | Outpatient (REF) | payer OTHER, SELFPAY ==
[2023-05-25 08:05] LABS: MANUAL DIFF FLAG NO
[2023-05-25 08:23] LABS: Estimated Average Glucose 171 mg/dL; Hemoglobin A1c % 7.6 % (<6.0)
[2023-05-25 08:29] LABS: Basophils Absolute Auto 0.1 X10*3/uL (0.0-0.2); Basophils Percent Auto 0.8 % (0-2); Eosinophils Absolute Auto 0.2 X10*3/uL (0.0-0.4); Eosinophils Percent Auto 1.8 % (0-4); Hematocrit 41.2 % (37.0-47.0); Hemoglobin 14.1 g/dl (12.0-16.0); Imm Gran Abs Auto 0.05 X10*3/uL (0.00-0.03); Imm Gran Pct Auto 0.4 % (0.0-0.4); Lymphocytes Absolute Auto 2.5 X10*3/uL (1.2-4.9); Lymphocytes Percent Auto 21.4 % (20-40); Mean Corpuscular HGB Conc 34.2 g/dl (31.0-35.0); Mean Corpuscular Hemoglobin 32.6 pg (27.0-33.0); Mean Corpuscular Volume 95.2 fL (80.0-98.0); Mean Platelet Volume 9.2 fL (9.4-12.3); Monocytes Absolute Auto 0.8 X10*3/uL (0.1-1.2); Neutrophils Absolute Auto 8.1 x10*3/uL (2.0-8.3); Neutrophils Percent Auto 68.6 % (45-73); Platelet Count 339 X10*3/uL (160-400); Red Blood Count 4.33 X10*6/uL (4.20-5.50); Red Cell Distribution Width 11.6 % (11.0-16.0); White Blood Count 11.9 X10*3/uL (4.8-10.8)
[2023-05-25 08:52] LABS: Alanine Aminotransferase 17 U/L (0-31); Albumin Level 4.2 g/dL (3.5-5.0); Alkaline Phosphatase 92 U/L (39-117); Anion Gap 15 (12-20); Aspartate Amino Transferase 19 U/L (5-31); Bilirubin Total 0.5 mg/dL (0.0-1.0); Blood Urea Nitrogen 9 mg/dL (9-16); Calcium 9.5 mg/dL (8.4-10.2); Carbon Dioxide 27 mmol/L (22-29); Chloride 102 mmol/L (96-108); Cholesterol 143 mg/dL (<200); Estimated Glomerular Filt Rate > 60; Glucose Fasting 239 mg/dL (60-99); HDL Cholesterol 59 mg/dL (>40); LDL Cholesterol Calculated 57 mg/dL (<100); Potassium 4.6 mmol/L (3.3-5.1); Sodium 139 mmol/L (135-145); Total Protein 7.4 g/dL (6.5-8.0); Triglycerides 136 mg/dL (<150)
== END 2023-05-25 07:42 | disposition home or self-care (01) ==
LOC: HO.LAB 07:41
PROVIDERS: PCP Internal Medicine; Visit Provider Internal Medicine
DX: I10 Essential (primary) hypertension (principal); E78.00 Pure hypercholesterolemia, unspecified; E11.9 Type 2 diabetes mellitus without complications
CPT/HCPCS: 36415; 80053; 80061; 83036; 85025

== ENCOUNTER 2023-05-31 12:57 | Outpatient (AMB) | payer OTHER, SELFPAY ==
--- NOTE | 2023-05-31 13:03 | A.OFFPC_ITS ---
Vital Signs 05/31/23 13:05 Height 5 ft 2 in Weight 164 lb 2 oz BMI 30.0 BP 100/68 Blood Pressure Location Lt brachial Position Sitting Pulse 79 Pulse Source Pulse Oximeter Pulse Oximetry (%) 98 Oxygen Delivery Method Room Air Intake Visit Reasons: DM, hyperlipidemia, renal calculi Intake Note: Patient is here to follow up on DM, HLD, Renal Calculi. Inside Sales Director Required: No Bilingual Inside Sales Representative: Not Required per policy Accompanied by: Self / Same As Patient Allergies No Known Allergies Allergy (Verified 05/31/23 16:15) Medication List - Last Reconciled 05/31/23 by Todd Candelaria MD albuterol sulfate 90 mcg/actuation (Ventolin HFA) 2 puffs inhalation Q6H PRN amlodipine 5 mg PO DAILY aspirin 81 mg PO DAILY atorvastatin 40 mg PO DAILY cholecalciferol (vitamin D3) 50 mcg PO DAILY 90 days lisinopril 20 mg PO DAILY metformin 1,000 mg PO BID pioglitazone 30 mg PO DAILY 90 days sitagliptin phosphate (Januvia) 100 mg PO DAILY 90 days Tobacco use date assessed: 05/31/23 Dental Screening Dental Screen Date: 05/31/23 Did you have a dental visit in the last 12 months?: No Did you have a dental problem in the last 6 months where you did not have access to dental care?: No Was dental information given to patient?: No HPI DM, hyperlipidemia, renal calculi HPI Details Patient comes in today for her follow up visit States that she continues to experience increased pain over her lower back, with pain often radiating down both legs Notes also some weakness of his legs at times and feels like her leg will give out on her when she is walking She is upset that she keeps being told by the specialists she has seen so far that she only has arthritis in her lower back when she feels that her symptoms are due to a herniated disk as she recalls experiencing similar symptoms many years ago before she had her back surgery done for her herniated disc She denies any headaches or dizziness Denies any chest pains, no increased SOB but her chest feels slightly congested lately - thinks this is from her asthma as her symptoms will improve when she uses her inhaler No nausea/vomiting, no abdominal pain No change in bowel habits noted Had her follow up labs done last week - to discuss her results States that she cancelled her MRI last week - was supposedly send for MRI with contrast by urology but she does not wish to go for any procedure with contrast as she's had a bad experience/side effects with IV contrast in the past States that she was also seen by pain management for her back a couple of years ago but she stopped going when she was advised that the only thing they can do for her is interventional injection treatments, which she does not want to do [facility] Medical History (Updated 05/31/23 @ 16:51 by Todd Candelaria MD) Lumbosacral spondylosis with radiculopathy Overweight (BMI 25.0-29.9) Asthma Bunion, right foot Fracture of phalanx of toe of left foot Muscle spasm of back Lumbar radiculitis Myalgia Arthralgia Left elbow pain Headache Neck pain Low back pain Right knee pain Screening for osteoporosis Vitamin D deficiency Cervical spondylosis 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 Sister No problems noted. Son No problems noted. Social History (Updated 05/31/23 @ 16:22 by Todd Candelaria MD) Housing: Apartment Alcohol intake: current Alcohol intake frequency: holidays/special occasions only Patient Tobacco Use Status: Never used Tobacco Tobacco use type: Cigarette e-Cigarette/Vaping Use: Never Used Second Hand Smoke Exposure: No Substance Use Type: Marijuana service: No Current occupational status: employed Cognitive needs: No Hearing needs: No Vision needs: No Questionnaire PHQ-9 Over the last 2 weeks, how often have you been bothered by any of the following problems? 1. Little interest or pleasure in doing things: several days 2. Feeling down, depressed, or hopeless: several days 3. Trouble falling or staying asleep, or sleeping too much: several days 4. Feeling tired or having little energy: several days 5. Poor appetite or overeating: not at all 6. Feeling bad about yourself - or that you are a failure or have let yourself or your family down: several days 7. Trouble concentrating on things, such as reading the newspaper or watching television: not at all 8. Moving or speaking so slowly that other people could have noticed. Or the opposite - being so fidgety or restless that you have been moving around a lot more than usual: not at all 9. Thoughts that you would be better off or of hurting yourself in some way: not at all Total score: 5 Depression Screening Interpretation: Positive Depression Screening Follow-up: Existing condition and In treatment Depression Screening Done: Yes 97407 - PHQ-9 Billing: Yes Source: Developed by Drs. August Escobar, Sherrie Diaz, Michael Son and colleagues, with an educational silvia from [employer]. Thrive Questionnaire Date Thrive assessed: 05/31/23 I am a: Patient What is your living situation today?: I have a steady place to live Within the past 12 months, did the food you bought not last and you didn't have the money to get more?: Never true Within the past 12 months, did you worry whether your food would run out before you got money to buy more?: Never true Do you have trouble paying for medicines?: No Do you have trouble getting transportation to medical appointments?: No Do you have trouble paying your heating and electricity bill?: No Do you have trouble taking care of your child, family member or friend?: No Do you have trouble with day-to-day activities such as bathing, preparing meals, shopping, managing finances, etc.?: No Are you currently unemployed and looking for a job?: No Are you interested in more education?: No Currently or been in a relationship where the following occur: no concerns reported THRIVE Score: 0 AUDIT C Alcohol Use Questionnaire (AUDIT-C) 1. How often do you have a drink containing alcohol?: Never 3. How often do you have six or more drinks on one occasion?: Never Total Score: 0 Score Reviewed/Action Taken: Yes JOI-7 AMB Questionnaire JOI-7 Date JOI - 7 assessed: 05/31/23 Feeling nervous, anxious, or on edge: 0 = Not at all Not being able to stop or control worryin = Not at all Worrying too much about different things: 0 = Not at all Trouble relaxin = Not at all Being so restless that it is hard to sit still: 0 = Not at all Becoming easily annoyed or irritable: 0 = Not at all Feeling afraid as if something awful might happen: 0 = Not at all Total JOI-7 score (0-4 normal; 5-9 mild; 10-14 moderate; 15-21 severe): 0 Source: Developed by Drs. August Escobar, Sherrie Diaz, Michael Son and colleagues, with an educational silvia from [employer]. Review of Systems Const Denies chills, Reports fatigue, Denies fever(s) and Denies headache(s) ENT Denies dysphagia, Denies dizziness, Denies otalgia, Denies headache(s), Reports neck pain, Denies odynophagia and Denies sore throat Card Denies chest pain, Denies palpitations and Denies dyspnea Resp Reports chest congestion (mild - thinks it is from her asthma), Reports cough (on and off, non-productive), Denies dyspnea and Denies wheezing GI Denies abdominal pain, Denies constipation, Denies dysphagia, Denies heartburn, Denies diarrhea, Denies nausea, Denies odynophagia and Denies vomiting Denies difficulty voiding, Denies nocturia, Denies dysuria and Denies urinary urgency Musc Reports back pain, Reports arthralgias (over both knees), Reports neck pain and Reports radiating pain into limb (into both legs; both legs feel somewhat weak at times) Skin/Breast Denies rash Neuro Denies dizziness and Denies headache(s) Endo Reports fatigue and Denies palpitations Aller/Immun Denies wheezing Physical exam (Primary Care) Vital Signs: Last Vital Signs Pulse 79 05/31/23 13:05 BP 100/68 05/31/23 13:05 Pulse Ox 98 05/31/23 13:05 Oxygen Delivery Method Room Air 05/31/23 13:05 BMI result Body Mass Index 30.0 Tobacco/Smoking Status: Tobacco use Status Tobacco use date assessed 05/31/23 05/31/23 13:11 Patient Tobacco Use Status Never used Tobacco 05/31/23 13:11 Tobacco use type Cigarette 05/31/23 13:11 e-Cigarette/Vaping Use Never Used 05/31/23 13:11 PHQ-9: PHQ-9 Score PHQ-9: Total score 5 05/31/23 14:07 Depression Screening Interpretation: Positive Depression Screening Follow-up: Existing condition and In treatment Thrive Assessment: Date of Thrive Assessment Date Thrive assessed 05/31/23 05/31/23 13:11 Currently or been in a relationship where the following occur: no concerns reported Const General: no acute distress and alert HENMT Ears: TM's normal bilaterally and EAC's normal Throat: Yes posterior oropharynx normal and Yes tonsils normal (no TP congestion) Neck Neck: Yes no lymphadenopathy and Yes tender Thyroid: Thyroid normal Resp Auscultation: no crackles, no rales, rhonchi (scattered) throughout, no wheezes and diminished lung sounds (slightly) bilateral Cardio Rate: regular rate Rhythm: regular rhythm Heart sounds: no murmurs GI Palpation (GI): Soft to palpation and nontender Auscultation: normal bowel sounds Back/Spine/Pelvis Cervical Spine: Cervical spine tenderness Thoracic/Lumbar Spine: thoracic spinal tenderness and lumbar spinal tenderness Skin Rashes: no rashes Extrem General: Yes no clubbing, cyanosis or edema Right lower extremity: knee Details: tenderness Left lower extremity: knee Details: tenderness Results Reviewed Results Reviewed: Laboratory Tests 05/25/23 08:03 WBC 11.9 H Hgb 14.1 Hct 41.2 Plt Count 339 Sodium 139 Potassium 4.6 Creatinine 0.84 Estimated GFR > 60 Fasting Glucose 239 H Hemoglobin A1c % 7.6 H Calcium 9.5 AST 19 ALT 17 Triglycerides 136 Cholesterol 143 LDL Cholesterol, Calc 57 HDL Cholesterol 59 Assessment and Plan Assessment & Plan (1) Diabetes mellitus: Code(s): E11.9 - Type 2 diabetes mellitus without complications Qualifiers: Diabetes mellitus complication status: with hyperglycemia Diabetes mellitus natural resource specialist insulin use: without natural resource specialist use Diabetes mellitus type: type 2 Qualified Code(s): E11.65 - Type 2 diabetes mellitus with hyperglycemia Plan: HgbA1c was at 7.6% on her labs done last week (was at 6.9% when previously checked in October 2022) - goal is <7.0% Reinforced diabetic diet Continue Metformin 1000 mg BID and Januvia 100 mg QD Will start her additionally on Pioglitazone 30 mg QD as patient does not want any Rx that involve injections (2) Pure hypercholesterolemia: Code(s): E78.00 - Pure hypercholesterolemia, unspecified Plan: Results of her labs done last week reviewed and discussed with patient Reinforced low cholesterol diet Continue Atorvastatin 40 mg QD Will recheck her labs and fasting lipids in 4 months for follow up (3) Benign essential hypertension: Code(s): I10 - Essential (primary) hypertension Plan: Reinforced low sodium diet - goal is systolic BP of 120 mm or less Continue Lisinopril 20 mg QD and Amlodipine 5 mg QD Patient is reminded to monitor her blood pressure regularly (4) Lumbosacral spondylosis with radiculopathy: Code(s): M47.27 - Other spondylosis with radiculopathy, lumbosacral region Plan: Reinforced activity and weight-lifting restrictions Lumbar spine MRI done in May 2021 revealed findings of chronic right hemilaminectomy changes and advanced degenerative changes at L5-S1 resulting in moderate to severe bilateral foraminal stenosis with mass effect on the exiting L5 nerve roots bilaterally Was following up with pain management previously but she declined offer for injection Tx Feels that her lower back and leg symptoms have been gradually getting worse lately Have offered to send her for a repeat MRI for follow up but she declined as she does not wish to get any procedures that will require IV contrast Have advised her then that I will refer her to the spine center here at [facility] and have her see Dr. Buckley to see what he can offer her in terms of a solution for her increasing back symptoms but advised that she will likely require at least some type of minimally invasive surgery (hopefully) - patient agrees to at least explore this and see what her options are - referral done (5) Cervical spondylosis: Code(s): M47.812 - Spondylosis without myelopathy or radiculopathy, cervical region Plan: Cervical spine x-rays done last year showed (+) findings of cervical spondylosis Cervical spine MRI done in December 2021 revealed multilevel cervical spondylosis as described above without significant spinal canal stenosis, cord compression, or cord signal abnormality. There is mild to moderate left neural foraminal narrowing at C3-C4 and C4-C5. Partial fusion of the right C2-C3 and left C3-C4 facet joints with periarticular edema involving the right C2-C3 facet joint Continue Tizanidine 2 mg Q 8 hours PRN Went to physical therapy for her neck last year and would like to continue PT on an as needed basis for now (6) Asthma: Code(s): J45.909 - Unspecified asthma, uncomplicated Qualifiers: Asthma complication type: uncomplicated Asthma persistence: intermittent Asthma severity: mild Qualified Code(s): J45.20 - Mild intermittent asthma, uncomplicated Plan: Continue Albuterol HFA 2 inhalations Q 6 hours PRN for now She is advised that auscultation of her lungs at present sounds like she is experiencing some exacerbation of her asthma, likely from allergies at this time of the year She is advised to call if she feels that her respiratory symptoms are getting worse and are no longer relieved by her rescue inhaler (7) Vitamin D deficiency: Code(s): E55.9 - Vitamin D deficiency, unspecified Plan: Continue Vitamin D3 2000 units QD Cautioned that her vitamin D level has dropped slightly from previous on her recent labs (8) Obesity (BMI 30-39.9): Code(s): E66.9 - Obesity, unspecified Plan: Reinforced diet; exercise and weight loss are currently unrealistic given her physical issues Plan Follow up in 4 months Orders: Orders Complete Blood Count Auto Diff 4 Months D64.9 - Anemia, unspecified Comprehensive [place]. Panel Fast 4 Months E78.00 - Pure hypercholesterolemia, unspecified TSH reflex Free T4 4 Months E78.00 - Pure hypercholesterolemia, unspecified Microalbumin, Random (w Creat) 4 Months E11.9 - Type 2 diabetes mellitus without complications Vitamin D 25-OH Total 4 Months E55.9 - Vitamin D deficiency, unspecified Hemoglobin A1c 4 Months E11.9 - Type 2 diabetes mellitus without complications Lipid Panel 4 Months E78.00 - Pure hypercholesterolemia, unspecified UA CC w/rflx Micro + Cult 4 Months R30.0 - Dysuria Referrals Neurosurgery Referral M47.816 - Spondylosis without myelopathy or radiculopathy, lumbar region, M48.061 - Spinal stenosis, lumbar region without neurogenic claudication, M54.16 - Radiculopathy, lumbar region Medications: New pioglitazone 30 mg PO DAILY 90 days 90 tabs 1RF Coding Level of Care Code Est Pt Level 4 (02696) Diagnoses Type 2 diabetes mellitus with hyperglycemia, without long-term current use of insulin E11.65 Diabetes mellitus complication status: with hyperglycemia Diabetes mellitus natural resource specialist insulin use: without natural resource specialist use Diabetes mellitus type: type 2 Pure hypercholesterolemia E78.00 Benign essential hypertension I10 Lumbosacral spondylosis with radiculopathy M47.27 Cervical spondylosis M47.812 Mild intermittent asthma without complication J45.20 Asthma complication type: uncomplicated Asthma persistence: intermittent Asthma severity: mild Vitamin D deficiency E55.9 Obesity (BMI 30-39.9) E66.9
[2023-05-31 13:05] VITALS: BP 100/68; PULSE 79; O2SAT 98
== END 2023-05-31 14:18 | disposition home or self-care (01) ==
PROVIDERS: PCP Internal Medicine; Visit Provider Internal Medicine
DX: E11.65 Type 2 diabetes mellitus with hyperglycemia (principal); E78.00 Pure hypercholesterolemia, unspecified; I10 Essential (primary) hypertension; M47.27 Other spondylosis with radiculopathy, lumbosacral region; M47.812 Spondylosis without myelopathy or radiculopathy, cervical region; J45.20 Mild intermittent asthma, uncomplicated; E55.9 Vitamin D deficiency, unspecified
CPT/HCPCS: 99214

== ENCOUNTER → 2023-06-14 13:57 | Outpatient (BNVA) | payer OTHER, SELFPAY | PROVIDERS: PCP Internal Medicine; Referring Provider Internal Medicine; Visit Provider Physician Assistant ==

== ENCOUNTER 2023-06-20 09:01 | Outpatient (AMB) | payer OTHER, SELFPAY ==
--- NOTE | 2023-06-20 09:35 | HO.SPINEOV ---
Intake Visit Reasons: Radiculopathy, lumbar region Intake Note: Ms. Crocker is here today c/o back pain. 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 She is a very nice 57-year-old female with a history of 2 previous L5-S1 microdiskectomies done at [facility] about 15 years ago or so, presents to the office today for evaluation of back pain and left lower extremity radicular pain going down into her hamstring. She has had this discomfort now for many years. She feels as though it may have been aggravated by a fall she took a few years back. However, symptoms are not disabling, there are new since and are uncomfortable but nothing that keeps her from doing most of the activities that she wants to do. She has the most problem with sitting for a length of time. Standing walking moving around she seems to be okay. She had gone to physical therapy for the back pain in the last year so, in that did not help much. She used to get injections in her back after her surgeries, but at 1 point she had a durotomy and headache that came from that has discouraged her from wanting to get anymore. She does smoke marijuana daily to help with the pain, will take Tylenol and Motrin etc. if she needs. PMH: She is diabetic, her last A1c was a little over 7, history of kidney stones, hypertension, neck pain, left shoulder pain, , cholecystectomy, lumbar microdiskectomies, breast reduction, she had a small TIA in 2019 for which she recovered without any issues. Denies any history of heart attacks, kidney disorders, liver disorders, major abdominal surgeries, coagulopathies, blood clots. Social hx: She has not smoke cigarettes, but smokes marijuana daily, no alcohol Medications: Metformin, lisinopril, Januvia, atorvastatin, baby aspirin, vitamin-D, pioglitazone, albuterol Allergies: She recalls having an issue with IV contrast at 1 point where she believes she may have had a seizure with it, as a precaution she has never taken any kind of IV contrast since that time. Physical exam: She is awake alert oriented no acute distress, full strength of bilateral upper and lower extremities with normal reflexes, normal gait Imaging review: The only recent imaging I have to review is a CT scan done of her abdomen last year some time showing a severely collapsed disc at L5-S1 with bilateral neuroforaminal stenosis. There is what appears to be a calcified synovial cyst off the medial facet on the left. Impression: 57-year-old female with a history of 2 previous L5-S1 microdiskectomy is who has had ongoing back pain and pain going down her left leg since the surgeries. She feels though it may have gotten worse since the fall few years ago, but certainly the pain is not disabling. She has not had to avoid any activities that she normally would find meaningful to her quality of life. She tried some physical therapy with no help. She does not wish to pursue cortisone injections given her bad experience with the last 1 where she had a durotomy. My suspicion is that ultimately she will end up having an L5-S1 fusion if the pain gets to a severe level. Right now it has just a new since and she has not really all that interested in surgery. More less I think she just going to try to continue to deal with that as she has done in the past. She is interested in getting an updated MRI which I think is reasonable. We will not do contrast because of her previous experience with it. I can bring her back to the office to review the MRI. Thank you for allowing us to care for your patient. The total time spent with this visit with this patient was 45 minutes reviewing history, physical exam, lumbar imaging review, and implementation of treatment plan or further diagnostic testing Luis Carlos Buckley MD,PhD [facility] Orders: Orders MR lumbar spine wo con Today M47.27 - Other spondylosis with radiculopathy, lumbosacral region Coding Level of Care Code New Pt Level 4 (44438) Diagnoses Lumbosacral spondylosis with radiculopathy M47.27
== END 2023-06-20 10:08 | disposition home or self-care (01) ==
PROVIDERS: PCP Internal Medicine; Referring Provider Internal Medicine; Visit Provider Physician Assistant
DX: M47.27 Other spondylosis with radiculopathy, lumbosacral region (principal)
CPT/HCPCS: 99204

== ENCOUNTER → 2023-06-20 09:01 | Outpatient (BNVA) | payer OTHER, SELFPAY | PROVIDERS: PCP Internal Medicine; Referring Provider Internal Medicine; Visit Provider Physician Assistant | DX: M47.27 Other spondylosis with radiculopathy, lumbosacral region (principal) | CPT/HCPCS: 99202 ==

== ENCOUNTER 2023-08-05 12:56 | Outpatient (REF) | payer OTHER, SELFPAY | END 2023-08-05 12:57 | disposition home or self-care (01) | LOC: HO.MRI 12:56 | PROVIDERS: PCP Internal Medicine; Visit Provider Physician Assistant | DX: Z13.89 Encounter for screening for other disorder (principal) ==

== ENCOUNTER 2023-12-29 07:40 | Outpatient (REF) | payer OTHER, SELFPAY ==
[2023-12-29 07:52] LABS: MANUAL DIFF FLAG NO
[2023-12-29 09:09] LABS: Basophils Absolute Auto 0.1 X10*3/uL (0.0-0.2); Basophils Percent Auto 0.8 % (0-2); Eosinophils Absolute Auto 0.2 X10*3/uL (0.0-0.4); Eosinophils Percent Auto 1.8 % (0-4); Hematocrit 39.5 % (37.0-47.0); Imm Gran Abs Auto 0.04 X10*3/uL (0.00-0.03); Imm Gran Pct Auto 0.4 % (0.0-0.4); Lymphocytes Absolute Auto 2.3 X10*3/uL (1.2-4.9); Lymphocytes Percent Auto 21.2 % (20-40); Mean Corpuscular HGB Conc 32.9 g/dl (31.0-35.0); Mean Corpuscular Hemoglobin 32.8 pg (27.0-33.0); Mean Corpuscular Volume 99.7 fL (80.0-98.0); Mean Platelet Volume 9.3 fL (9.4-12.3); Monocytes Absolute Auto 0.7 X10*3/uL (0.1-1.2); Neutrophils Absolute Auto 7.3 x10*3/uL (2.0-8.3); Neutrophils Percent Auto 68.8 % (45-73); Platelet Count 343 X10*3/uL (160-400); Red Blood Count 3.96 X10*6/uL (4.20-5.50); Red Cell Distribution Width 12.1 % (11.0-16.0); White Blood Count 10.6 X10*3/uL (4.8-10.8)
[2023-12-29 09:26] LABS: Estimated Average Glucose 143 mg/dL; Hemoglobin A1C 169.7739 umol/L; Hemoglobin A1c % 6.6 % (<6.0); Total Hemoglobin (HGBA1C) 3487.4871 umol/L
[2023-12-29 09:34] LABS: Appearance Urine Clear; Color Urine Yellow; Glucose Urine UA Negative (Negative); Leukocyte Esterase Urine Small (1+) (Negative); Nitrite Urine Negative (Negative); Specific Gravity - Urine 1.015 (1.005-1.025); UMIC TRIGGER UACC YES; Urine Blood Small (1+) (Negative); Urine Ketones Negative (Negative); Urine Protein Negative (Neg-Trace)
[2023-12-29 09:51] LABS: Bacteria Urine Trace (None Seen); Hyaline Casts Urine 0-2 /LPF (0-2); RBC Urine 0-2 /HPF (0-2); UACC Culture Trigger YES; WBC Urine 0-5 /HPF (0-5)
[2023-12-29 09:55] LABS: Alanine Aminotransferase 13 U/L (0-31); Albumin Level 4.2 g/dL (3.5-5.0); Alkaline Phosphatase 95 U/L (39-117); Anion Gap 14 (12-20); Aspartate Amino Transferase 21 U/L (5-31); Bilirubin Total 0.4 mg/dL (0.0-1.0); Blood Urea Nitrogen 13 mg/dL (9-16); Calcium 9.4 mg/dL (8.4-10.2); Carbon Dioxide 27 mmol/L (22-29); Chloride 102 mmol/L (96-108); Cholesterol 138 mg/dL (<200); Estimated Glomerular Filt Rate > 60; Glucose Fasting 164 mg/dL (60-99); HDL Cholesterol 57 mg/dL (>40); LDL Cholesterol Calculated 62 mg/dL (<100); Potassium 4.1 mmol/L (3.3-5.1); Sodium 139 mmol/L (135-145); Total Protein 7.2 g/dL (6.5-8.0); Triglycerides 97 mg/dL (<150)
[2023-12-29 10:05] LABS: Creatinine Urine 150.07 mg/dL; Microalbum/Creatinine Ratio Ur 7.3 ug/mg cr (<30)
[2023-12-29 10:15] LABS: TSH reflex Free T4 0.88 uIU/mL (0.32-4.0); Vitamin D 25-OH Total 17.7 ng/mL (>30)
== END 2023-12-29 07:41 | disposition home or self-care (01) ==
LOC: HO.LAB 07:40
PROVIDERS: PCP Internal Medicine; Visit Provider Internal Medicine
DX: D64.9 Anemia, unspecified (principal); E78.00 Pure hypercholesterolemia, unspecified; E11.9 Type 2 diabetes mellitus without complications; E55.9 Vitamin D deficiency, unspecified
CPT/HCPCS: 36415; 80053; 80061; 81001; 82043; 82306; 82570; 83036; 84443; 85025; 87086